=== PATIENT | female | born 1930 | race Caucasian/White ===

== ENCOUNTER → 2017-01-21 | Outpatient (CLI) | payer OTHER, BC ==
[~2017-01-21] MED LIST: ACET-1257 PO; ASPCH81X PO; CALC-20 PO; CHOL100027 PO; PANT40TA PO; SERT-234 PO; SUCR5SUS PO; TPRSR25 PO
[2017-01-21 13:34] LABS: HEMATOCRIT 45.4 % (37-47); MEAN CELL VOLUME 94.2 fL (80-100); MEAN CORPUSCULAR HEMOGLOBIN 30.9 pg (25-34); MEAN CORPUSCULAR HGB CONC 32.8 g/dl (32-36); MEAN PLATELET VOLUME 11.3 fL (7.4-10.4); PLATELET COUNT 165 K/uL (130-400); RED BLOOD COUNT 4.82 M/uL (4.2-5.4); WHITE BLOOD COUNT 8.87 K/uL (4.8-10.8)
[2017-01-21 14:03] LABS: ESTIMATED AVERAGE GLUCOSE 140 mg/dl; HA1C FLAG Normal (Normal)
[2017-01-21 14:08] LABS: ALT/SGPT 26 U/L (12-78); BLOOD UREA NITROGEN 18 mg/dl (7-18); BUN/CREATININE RATIO 14.8 (10-20); CALCIUM 9.2 mg/dl (8.5-10.1); CARBON DIOXIDE 30 mmol/L (21-32); CHLORIDE 105 mmol/L (98-107); GLUCOSE 134 mg/dl (70-99); POTASSIUM 4.3 mmol/L (3.5-5.1); SODIUM 143 mmol/L (136-145)
== END | disposition home or self-care (01) ==
LOC: C.LABMFLN 07:22
PROVIDERS: ATTEND Family Medicine
DX: G45.3 Amaurosis fugax (principal); I10 Essential (primary) hypertension; E11.9 Type 2 diabetes mellitus without complications; E78.00 Pure hypercholesterolemia, unspecified

== ENCOUNTER → 2017-01-22 | Outpatient (CLI) | payer OTHER, BC ==
--- NOTE | 2017-01-22 10:09 | DIAGNOSTIC IMAGING REPORT ---
BILATERAL CAROTID DOPPLER STUDY HISTORY: G45.3 Amaurosis fugax, left [id number] COMPARISON: None. TECHNIQUE: Real-time, grayscale, and color Doppler sonography of the carotid arteries was performed. Imaging reviewed in the transverse and longitudinal planes. All measurements were calculated based on NASCET criteria. FINDINGS: Antegrade flow is seen in the bilateral vertebral arteries. The brachial pressures are hemodynamically similar. Minimal calcified plaque within the right carotid bulb. The peak systolic velocity within the right ICA is 72 cm/s. The right systolic ratio is 1.2. The peak systolic velocity within the left ICA is 87 cm/s. The left systolic ratio is 1.0. IMPRESSION: No hemodynamically significant stenosis seen within the carotid arteries. Electronically signed by: Anil Zhang M.D. 01/22/2017 10:07 AM Dictated Date/Time: 01/22/2017 10:06 AM
== END | disposition home or self-care (01) ==
LOC: C.ULTR 09:13
PROVIDERS: ATTEND Family Medicine
DX: G45.3 Amaurosis fugax (principal)

== ENCOUNTER → 2017-08-19 | Outpatient (CLI) | payer OTHER, BC ==
--- NOTE | 2017-08-19 15:45 | MAMMOGRAPHY REPORT ---
BILATERAL DIGITAL SCREENING MAMMOGRAM WITH CAD: 08/19/2017 CLINICAL HISTORY: Routine screening. Patient has no complaints. TECHNIQUE: Bilateral CC, MLO and XCCL views were obtained. Current study was also evaluated with a [employer] Aided Detection (CAD) system. COMPARISON: Comparison is made to exams dated: 08/17/2016 mammogram, 08/16/2015 mammogram, 05/04/2014 m ammogram, 04/30/2013 mammogram, 04/24/2012 mammogram, and 02/23/2011 mammogram - [facility]. BREAST COMPOSITION: The tissue of both breasts is almost entirely fatty. FINDINGS: There are mild vascular calcifications in the breasts. No suspicious mass, architectural d istortion or cluster of microcalcifications is seen. IMPRESSION: ACR BI-RADS CATEGORY 1: NEGATIVE There is no mammographic evidence of malignancy. A 1 year screening mammogram is recommended. The pa tient will receive written notification of the results. Approximately 10% of breast cancers are not detected with mammography. A negative mammographic report should not delay biopsy if a clinically suggestive mass is present. Leslee Cardenas M.D. ay/:08/19/2017 14:43:22 Bottling Line Attendant: Nikki Briceño, [facility] letter sent: Normal 1/2 BI-RADS Code: ACR BI-RADS Category 1: Negative
== END | disposition home or self-care (01) ==
LOC: C.MAMM 13:18
PROVIDERS: ATTEND Family Medicine
DX: Z12.31 Encounter for screening mammogram for malignant neoplasm of breast (principal)

== ENCOUNTER → 2018-01-27 | Outpatient (CLI) | payer OTHER, BC | END | disposition home or self-care (01) | LOC: C.LABMFLN 09:21 | PROVIDERS: ATTEND Family Medicine | DX: R05 Cough (principal) ==

== ENCOUNTER → 2018-03-12 | Outpatient (CLI) | payer OTHER, BC | END | disposition home or self-care (01) | LOC: C.LABMFLN 11:33 | PROVIDERS: ATTEND Urology | DX: R32 Unspecified urinary incontinence (principal); R35.0 Frequency of micturition ==

== ENCOUNTER 2019-06-30 16:19 | Inpatient (IN) ==
[2019-06-30] MEDS ORDERED: SODIUM CHLORIDE 0.9% 1000ML 1,000 ML IV SCH ×2 (16:30→21:15)
[2019-06-30] MEDS ORDERED: MoRPHine SULFATE 4 MG/ML 1 ML CARP\\VIAL IV STA (16:39)
--- NOTE | 2019-06-30 17:13 | CT Scan Report ---
CT SCAN OF THE BRAIN WITHOUT IV CONTRAST CLINICAL HISTORY: Fall. COMPARISON STUDY: CT of the brain dated 11/14/2015. TECHNIQUE: Unenhanced axial CT scan of the brain is performed from the vertex to the skull base. A do se lowering technique was utilized adhering to the principles of ALARA. CT DOSE: 720.23 mGy.cm FINDINGS: Brain parenchyma: There are age-related involutional changes noting mild to moderate subcortical and periventricular microangiopathic change. There is no hemorrhage, mass effect, or evidence of acute t erritorial ischemia by CT criteria. Garcia-white matter differentiation is preserved. No extra-axial fl uid collection is seen. Ventricles, sulci, cisterns: Prominent secondary to involutional change. Intracranial vasculature: There is atherosclerotic calcification of the cavernous carotid and vertebr al arteries. Calvarium: The skeletal structures are osteopenic. No depressed calvarial fracture is identified. Sinuses and mastoids: There is evidence of previous paranasal sinus surgery. Trace mucosal thickening is noted within the ethmoid cavity. The remaining visualized paranasal sinuses are clear. The mastoi d air cells are well pneumatized. Orbits: The bony orbits are grossly intact. There are bilateral ocular lens implants. IMPRESSION: There is no hemorrhage, mass effect, or evidence of acute territorial ischemia by CT jayden calhoun. Electronically signed by: Washington Moses M.D. 06/30/2019 5:12 PM
[2019-06-30 17:19] LABS: Basophils # (auto) 0.04 K/uL (0-0.2); Basophils % (auto) 0.4 %; Eosinophils # (auto) 0.41 K/uL (0-0.5); Eosinophils % (auto) 4.1 %; Hematocrit (blood only) 41.3 % (37-47); Hemoglobin 13.6 g/dL (12.0-16.0); Immature Granulocytes # (auto) 0.01 K/uL (0.00-0.02); Immature Granulocytes % (auto) 0.1 %; Lymphocytes # (auto) 2.59 K/uL (1.2-3.4); Lymphocytes % (auto) 25.8 %; Mean Corpuscular Hgb Conc 32.9 g/dL (32-36); Mean Corpuscular Volume 92.6 fL (80-100); Mean Platelet Volume 10.8 fL (7.4-10.4); Monocytes # (auto) 0.82 K/uL (0.11-0.59); Monocytes % (auto) 8.2 %; Neutrophils # (auto) 6.16 K/uL (1.4-6.5); Neutrophils % (auto) 61.4 %; Platelet Count 203 K/uL (130-400); RDW Coefficient of Variation 13.8 % (11.5-14.5); RDW Standard Deviation 46.2 fL (36.4-46.3); Red Blood Count 4.46 M/uL (4.2-5.4); White Blood Count 10.03 K/uL (4.8-10.8)
--- NOTE | 2019-06-30 17:25 | XRay Report ---
XR hip BI w PEL1V CLINICAL HISTORY: s/p fall. Pelvis and hip pain. COMPARISON STUDY: Left hip 12/25/2007. FINDINGS: No fracture or dislocation within the pelvis or hips. Mild cartilage space narrowing within the bilateral hips consistent with degenerative change. There is also mild osteoarthritis of the monica ateral sacroiliac joints. The sacrum appears intact. Soft tissues are unremarkable. 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 No fractures. Electronically signed by: Anil Zhang M.D. 06/30/2019 5:24 PM
--- NOTE | 2019-06-30 17:28 | XRay Report ---
XR chest 1V portable HISTORY: weakness COMPARISON: Chest 05/17/2014. FINDINGS: The heart is enlarged. There is interstitial and vascular thickening suggestive of mild con gestive change. No pneumothorax. Blunting of the costophrenic sulci may represent trace pleural effus ions. Old, healed right clavicle fracture. IMPRESSION: Cardiomegaly with mild congestive change. There may be trace bilateral pleural effusions. Electronically signed by: Anil Zhang M.D. 06/30/2019 5:26 PM
[2019-06-30 18:00] LABS: Alanine Aminotransferase 23 U/L (12-78); Albumin Level 3.8 gm/dl (3.4-5.0); Alkaline Phosphatase 100 U/L (45-117); BUN Creatinine Ratio 18.4 (10-20); Blood Urea Nitrogen 22 mg/dl (7-18); Calcium 9.8 mg/dl (8.5-10.1); Carbon Dioxide 29 mmol/L (21-32); Chloride 102 mmol/L (98-107); Est GFR (Non-African American) 41.4; Glucose 123 mg/dl (70-99); Sodium 138 mmol/L (136-145); Total Protein 7.8 gm/dl (6.4-8.2); Troponin I < 0.015 ng/ml (0-0.045)
[2019-06-30] MEDS ORDERED: IOVERSOL 100ml IV PRN (18:41)
--- NOTE | 2019-06-30 19:16 | CT Scan Report ---
CT SCAN OF THE CHEST, ABDOMEN, AND PELVIS WITH IV CONTRAST CLINICAL HISTORY: Recent fall. COMPARISON STUDY: CT scan of the chest, abdomen, and pelvis dated 08/16/2011. Chest x-ray dated 2018. Abdominal CT dated 05/17/2014. TECHNIQUE: Following the IV administration of 94 of Optiray 320, CT scan of the chest, abdomen, and p luis was performed from the thoracic inlet to the proximal femora. Images are reviewed in the axial, sagittal, and coronal planes. IV contrast was administered without complication. A dose lowering t echnique was utilized adhering to the principles of ALARA. CT DOSE: 2043.67 mGy.cm FINDINGS: CHEST: Thyroid: Imaged portions of the thyroid gland are normal in size and attenuation. Thoracic aorta: There is advanced atherosclerotic calcification of the thoracic aorta, which is trevon l in caliber and demonstrates standard 3-vessel arch anatomy. No dissection is seen. Pulmonary vasculature: The pulmonary trunk is dilated measuring 4 cm in diameter. This suggests pulmo nary artery hypertension. There are no filling defects identified in the central pulmonary vessels to indicate pulmonary embolus. Note that this examination was not protocoled for evaluation of the pulm onary arteries. Heart: The heart is enlarged and without pericardial effusion. There are scattered coronary artery ca lcifications. Lungs and pleural spaces: There is no airspace consolidation, pleural effusion, or pneumothorax. Subp leural reticulation is seen throughout both lungs and consistent with chronic lung disease. Scarring/ atelectasis are noted at the lung bases. There is a 6 mm right lower lobe pulmonary nodule seen on im age #161. A 5 mm pleural-based nodules in the right upper lobe on image #69. A 7 mm nodule at the lef t lung base is seen on image #246 and a 4 mm left lower lobe nodule is seen image #[id number]. These are un changed from 2011 and of doubtful significance. Scattered calcified granulomas are observed. Mediastinum: There is no mediastinal hematoma or lymphadenopathy. Yasmine: Clear. Axillae: There is no axillary lymphadenopathy. Bony thorax: The skeletal structures are osteopenic. Degenerative change and kyphoscoliosis are noted throughout the thoracic spine. No lytic or blastic lesions are identified. There is chronic posttrau matic deformity of the right clavicle. There are numerous chronic/healed bilateral rib fractures. The re are acute left posterior 8th and 9th rib fractures. Soft tissues: Soft tissue contusion is noted in the left lower back/upper flank. Small foci of hemorr jose/hematoma measure up to 1.6 cm. ABDOMEN AND PELVIS: Liver: The contrast-enhanced liver is normal in size, contour, and attenuation. There is no intrahepa tic or ductal dilatation. The hepatic veins and portal veins are patent. Gallbladder: There are layering calcified gallstones, with no CT evidence of acute cholecystitis. Spleen: Normal in size and attenuation. Pancreas: Mildly atrophic and grossly unremarkable. Adrenal glands: Unremarkable. Kidneys: The contrast enhanced kidneys demonstrate mild cortical atrophy and are without hydronephros is. The kidneys enhance symmetrically. Abdominal vasculature: The abdominal aorta is normal in course and caliber noting moderate to advance d atherosclerotic calcification. Stomach and bowel: There is a tiny hiatal hernia. The duodenum is normal in configuration. There is m oderate diverticulosis of the left colon without CT evidence of acute diverticulitis. No bowel obstru ction is seen. Mild colonic fecal retention is observed. The appendix is not identified and reported surgically absent. Peritoneum: There is no intraperitoneal free air or abdominal ascites. Lymphadenopathy: None. Pelvic viscera: The bladder is normal as visualized. The uterus is surgically absent. No adnexal lesi on is seen. Skeletal structures: The skeletal structures are osteopenic. There is mild lumbosacral spondylosis an d scoliosis. A small bone island is incidentally noted in the body of L1. No lytic or blastic lesions are seen. The lumbosacral spine and bony pelvis appear intact. Soft tissues: Mild soft tissue contusion overlies the lateral aspect of the left hip. No hematoma is identified. IMPRESSION: 1. There are acute left posterior 8th and 9th rib fractures. 2. There is no airspace consolidation, pleural effusion, or pneumothorax. 3. There is no evidence of solid organ injury in the abdomen or pelvis. 4. There is soft tissue contusion with trace hematoma identified in the left lower back/upper flank. 5. Soft tissue contusion is also seen overlying the lateral aspect of the left hip. 6. Cholelithiasis without CT evidence of acute cholecystitis. 7. There is moderate diverticulosis of the left colon without CT evidence of acute diverticulitis. 8. Mild cardiomegaly. 9. Additional findings as above. Electronically signed by: Washington Moses M.D. 06/30/2019 7:13 PM
--- NOTE | 2019-06-30 20:19 | Emergency Department Note ---
Entered by Kenia Grande acting as a scribe for Harshad Friedman MD History of Present Illness General Chief complaint: Fall Stated complaint: FALL, WEAK, PAIN IN STOMACH/RIB, BLURRED VISION Time Seen by Provider: 06/30/19 16:26 Source: patient, family (daughter) and old records reviewed History of Present Illness Provider complaint: fall Onset (ago): day(s) 6 Location: head Severity: similar to prior episodes Associated symptoms: + chest pain, + headaches, + loss of appetite and + other (+bilateral leg pain) The patient is a 89 year old female w/ PMHx of diabetes, head injury, arrhythmia, and right leg DVT who presents to the ED w/ CC of a fall that occurred 6 days ago. The patient states that she has had multiple recent episodes of falling lately. She reports that her last fall was 6 days ago where she fell into a table and she suffered a head injury. She reports that she was evaluated at [facility] where they did X-rays which were negative, but states that she did not have a CT done. The patient reports that she had a headache f ollowing the fall. She notes that she has a recent loss of appetite. The patient notes that she currently has chest pain and bilateral leg pain. The patient reports that she went to her PCP today and was referred to the ED for physical rehabilitation placement because of her recent falls. She states that she takes blood thinners. The patients daughter notes that the patient states that she does not feel safe living at home alone. Per the ED note, the patient is on Aspirin and Plavix. Home Medications Home Medications Medication Instructions Recorded Confirmed Type albuterol sulfate 2.5 mg/3 mL 2.5 mg CONTINUOUS NEBULIZATION BID 04/22/19 06/30/19 History (0.083 %) solution for nebulization #1 ml aspirin 81 mg tablet,delayed 81 mg PO DAILY #2 tab 04/22/19 06/30/19 History release atorvastatin 20 mg tablet 20 mg PO DAILY #90 tab 04/22/19 06/30/19 History cholecalciferol (vitamin D3) 2,000 4,000 units PO DAILY #180 cap 04/22/19 06/30/19 History unit capsule clopidogrel 75 mg tablet 75 mg PO DAILY #90 tab 04/22/19 06/30/19 History doxycycline monohydrate 100 mg 100 mg PO DAILY #30 cap 04/22/19 06/30/19 History capsule lisinopril 5 mg tablet 5 mg PO DAILY #90 tab 04/22/19 06/30/19 History sertraline 100 mg tablet 100 mg PO DAILY #90 tab 04/22/19 06/30/19 History pantoprazole 40 mg tablet,delayed 40 mg PO DAILY #90 tab 04/27/19 06/30/19 Rx release cetirizine 10 mg capsule 10 mg PO HS #30 cap 05/18/19 06/30/19 Rx fluticasone propionate 50 2 sprays INTRANASAL .at bedtime #3 05/18/19 06/30/19 Rx mcg/actuation nasal gm spray,suspension mirabegron ER 50 mg 50 mg PO DAILY 05/18/19 06/30/19 History tablet,extended release 24 hr folic acid 1 mg tablet 1 mg PO DAILY #90 tab 05/25/19 06/30/19 Rx calcium carbonate 600 mg (1,500 1 tab PO BID #180 tab 06/04/19 06/30/19 Rx mg)-vitamin D3 400 unit tablet duloxetine 30 mg capsule,delayed 30 mg PO DAILY #90 cap 06/15/19 06/30/19 Rx release acetaminophen 325 mg tablet See Rx Instructions .ROUTE 06/24/19 06/30/19 Rx .COMPLEX #60 tablet calcitonin (salmon) 200 See Rx Instructions .ROUTE 06/30/19 06/30/19 Rx unit/actuation nasal spray .COMPLEX #3.7 ml hydrocodone 7.5 mg-acetaminophen 1 tab PO Q6H #60 tab 06/30/19 06/30/19 Rx 325 mg tablet ondansetron HCl 4 mg tablet 4 mg PO QID PRN #30 tab 06/30/19 06/30/19 Rx Allergies Allergy/AdvReac Type Severity Reaction Status Date / Time Nitrate Analogues Allergy Unknown UNKNOWN Verified 06/30/19 14:34 nitrofurantoin Allergy Unknown UNKNOWN Verified 06/30/19 14:34 ciprofloxacin [From Cipro] AdvReac Verified 06/30/19 14:34 metformin AdvReac Diarrhea Verified 06/30/19 14:34 Past Med/Surg History Medical History Thyroid nodule (Chronic) Diabetes (Chronic) Arrhythmia (Chronic) Surgical History History of total abdominal hysterectomy Status post abdominal hysterectomy and right salpingo-oophorectomy Family History Mother Brain cancer Father Esophageal cancer Other Hypertension Pure hypercholesterolemia Social History Feels Safe at Home: Yes Smoking Status: Never smoker Seatbelt Use: always Review of Systems See HPI for pertinent positives & negatives. and A total of 10 systems reviewed and were otherwise negative Physical Exam Vital Signs Vital Signs - 24 hr 06/30/19 16:20 06/30/19 16:38 06/30/19 17:09 Temperature 36.5 C Temperature Source Oral Sepsis Recent Fever Within 48 Hours No Sepsis Action Taken by Nursing No Action Required Pulse Rate 83 Pulse Rate [Finger] 96 H Pulse Rate from SpO2 Sensor Respiratory Rate 18 20 Respiratory Effort / Characteristics Non-Labored Respiratory Depth Normal Blood Pressure 141/85 H Blood Pressure [Left Arm] Blood Pressure Mean 103 Blood Pressure Mean [Left Arm] Pulse Oximetry 94 93 Oxygen Delivery Method Room Air Room Air Room Air 06/30/19 17:10 06/30/19 17:12 06/30/19 17:20 Temperature Temperature Source Sepsis Recent Fever Within 48 Hours Sepsis Action Taken by Nursing Pulse Rate 83 91 H 90 Pulse Rate [Finger] Pulse Rate from SpO2 Sensor 90 94 H 89 Respiratory Rate 15 25 H 18 Respiratory Effort / Characteristics Respiratory Depth Blood Pressure Blood Pressure [Left Arm] Blood Pressure Mean 157 Blood Pressure Mean [Left Arm] Pulse Oximetry 93 93 Oxygen Delivery Method Room Air Room Air Room Air 06/30/19 17:30 06/30/19 17:40 06/30/19 17:47 Temperature Temperature Source Sepsis Recent Fever Within 48 Hours Sepsis Action Taken by Nursing Pulse Rate 92 H 90 Pulse Rate [Finger] 88 Pulse Rate from SpO2 Sensor 92 H 89 Respiratory Rate 22 22 19 Respiratory Effort / Characteristics Respiratory Depth Blood Pressure Blood Pressure [Left Arm] 133/57 L Blood Pressure Mean Blood Pressure Mean [Left Arm] 82 Pulse Oximetry 92 92 Oxygen Delivery Method Room Air Room Air Room Air 06/30/19 17:48 06/30/19 17:50 06/30/19 18:00 Temperature Temperature Source Sepsis Recent Fever Within 48 Hours Sepsis Action Taken by Nursing Pulse Rate 89 89 95 H Pulse Rate [Finger] Pulse Rate from SpO2 Sensor 89 91 H 92 H Respiratory Rate 21 24 21 Respiratory Effort / Characteristics Respiratory Depth Blood Pressure 133/57 L 129/89 Blood Pressure [Left Arm] Blood Pressure Mean 82 102 Blood Pressure Mean [Left Arm] Pulse Oximetry 93 90 90 Oxygen Delivery Method Room Air Room Air Room Air 06/30/19 18:10 06/30/19 18:20 06/30/19 18:30 Temperature Temperature Source Sepsis Recent Fever Within 48 Hours Sepsis Action Taken by Nursing Pulse Rate 100 H 95 H 93 H Pulse Rate [Finger] Pulse Rate from SpO2 Sensor 98 H 95 H 94 H Respiratory Rate 25 H 22 23 Respiratory Effort / Characteristics Respiratory Depth Blood Pressure 144/75 H Blood Pressure [Left Arm] Blood Pressure Mean 98 Blood Pressure Mean [Left Arm] Pulse Oximetry 90 91 90 Oxygen Delivery Method Room Air Room Air Room Air 06/30/19 19:35 Temperature Temperature Source Sepsis Recent Fever Within 48 Hours Sepsis Action Taken by Nursing Pulse Rate Pulse Rate [Finger] 97 H Pulse Rate from SpO2 Sensor Respiratory Rate 12 Respiratory Effort / Characteristics Respiratory Depth Blood Pressure Blood Pressure [Left Arm] Blood Pressure Mean Blood Pressure Mean [Left Arm] Pulse Oximetry Oxygen Delivery Method Room Air GENERAL: Well appearing, wearing glasses, well nourished, NAD, non-toxic. EYE EXAM: Normal conjunctiva. PERRL, no anisocoria and EOM's grossly intact w/o pain. OROPHARYNX: Moist mucous membranes. Grossly normal dentition. NECK: Supple, no nuchal rigidity, no adenopathy, non-tender. No signs of menin gismus. LUNGS: Clear to auscultation. Normal chest wall mechanics. HEART: NSR, no MRG. ABDOMEN: Abdomen soft, non-tender, normo-active bowel sounds, no masses, no rebound or guarding. BACK: No CVA. Large left sided area of ecchymosis. Associated TTP 12 cm by 12 cm across. SKIN: No rashes and no bruising. UPPER EXTREMITIES: Mild discomfort over left elbow, compartments soft, NVI distally, no obvious deformities. LOWER EXTREMITIES: No pitting edema. No calf pain. Symmetric. No obvious deformities. NEURO EXAM: A&O x3, cranial nerves II-XII grossly intact, normal speech, moves all 4 extremities on command w/o issue. Course 1635: The patient was evaluated in room A10, and a complete history and physical examination were performed. 1934: I discussed the patient's case with Dr. Hazel Knight- [facility] Hospitalist, she will accept the patient for further evaluation. Consultations Consultation #1: Dr. Hazel Knight- [facility] Hospitalist Time: 19:34 Administered Medications Ioversol (Optiray 320 100ml) 94 ml IV ONCE PRN PRN Reason: Interaction Checking Stop: 07/04/19 18:40 Last Admin: 06/30/19 18:42 Dose: 94 ml Documented by: [id number] Discontinued Medications Sodium Chloride (Nss 1000ml) 1,000 mls @ 999 mls/hr IV .Q1H1M JEF Stop: 06/30/19 17:30 Last Infusion: 06/30/19 18:26 Dose: 0 mls/hr Documented by: [id number] Admin: 06/30/19 17:07 Dose: 999 mls/hr Documented by: [id number] Morphine Sulfate (Morphine Sulfate) 4 mg IV NOW STA Stop: 06/30/19 16:40 Last Admin: 06/30/19 17:07 Dose: 4 mg Documented by: [id number] Medical Decision Making Medical Records Attestation: I reviewed the patient's medical records. Home Medications Current Medication List: was personally reviewed by me Laboratory Data Attestation: I reviewed the patient's lab results. Result diagrams: 06/30/19 16:28 06/30/19 16:28 Lab Results 06/30/19 06/30/19 Range/Units 16:28 16:28 WBC 10.03 (4.8-10.8) K/uL RBC 4.46 (4.2-5.4) M/uL Hgb 13.6 (12.0-16.0) g/dL Hct 41.3 (37-47) % MCV 92.6 (80-100) fL MCH 30.5 (25-34) pg MCHC 32.9 (32-36) g/dL RDW Std Deviation 46.2 (36.4-46.3) fL RDW Coeff of Lauren 13.8 (11.5-14.5) % Plt Count 203 (130-400) K/uL MPV 10.8 H (7.4-10.4) fL Immature Gran % (Auto) 0.1 % Neut % (Auto) 61.4 % Lymph % (Auto) 25.8 % [place] % (Auto) 8.2 % Eos % (Auto) 4.1 % Baso % (Auto) 0.4 % Immature Gran # (Auto) 0.01 (0.00-0.02) K/uL Neut # (Auto) 6.16 (1.4-6.5) K/uL Lymph # (Auto) 2.59 (1.2-3.4) K/uL Newport # (Auto) 0.82 H (0.11-0.59) K/uL Eos # (Auto) 0.41 (0-0.5) K/uL Baso # (Auto) 0.04 (0-0.2) K/uL Sodium 138 (136-145) mmol/L Potassium (3.5-5.1) mmol/L Chloride 102 (98-107) mmol/L Carbon Dioxide 29 (21-32) mmol/L Anion Gap 7.0 (3-11) BUN 22 H (7-18) mg/dl Creatinine 1.18 (0.6-1.2) mg/dl Est Cr Clr Drug Dosing Not Reportable Est GFR ( Amer) 48.0 Est GFR (Non-Af Amer) 41.4 BUN/Creatinine Ratio 18.4 (10-20) Glucose 123 H (70-99) mg/dl Calcium 9.8 (8.5-10.1) mg/dl Magnesium (1.8-2.4) mg/dl Total Bilirubin 1.0 (0.2-1) mg/dl AST (15-37) U/L ALT 23 (12-78) U/L Alkaline Phosphatase 100 (45-117) U/L Troponin I < 0.015 (0-0.045) ng/ml Total Protein 7.8 (6.4-8.2) gm/dl Albumin 3.8 (3.4-5.0) gm/dl Globulin 4.0 (2.5-4.0) gm/dl Albumin/Globulin Ratio 1.0 (0.9-2) TSH 3.090 (0.300-4.500) uIu/ml Imaging Data Radiologist's Impression: Radiology results as stated below per my review and the radiologist's interpretation: CT SCAN OF THE BRAIN WITHOUT IV CONTRAST CLINICAL HISTORY: Fall. COMPARISON STUDY: CT of the brain dated 11/14/2015. TECHNIQUE: Unenhanced axial CT scan of the brain is performed from the vertex to the skull base. A dose lowering technique was utilized adhering to the principles of ALARA. CT DOSE: 720.23 mGy.cm FINDINGS: Brain parenchyma: There are age-related involutional changes noting mild to moderate subcortical and periventricular microangiopathic change. There is no hemorrhage, mass effect, or evidence of acute territorial ischemia by CT criteria. Garcia-white matter differentiation is preserved. No extra-axial fluid collection is seen. Ventricles, sulci, cisterns: Prominent secondary to involutional change. Intracranial vasculature: There is atherosclerotic calcification of the cavernous carotid and vertebral arteries. Calvarium: The skeletal structures are osteopenic. No depressed calvarial fracture is identified. Sinuses and mastoids: There is evidence of previous paranasal sinus surgery. Trace mucosal thickening is noted within the ethmoid cavity. The remaining visualized paranasal sinuses are clear. The mastoid air cells are well pneumatized. Orbits: The bony orbits are grossly intact. There are bilateral ocular lens implants. IMPRESSION: There is no hemorrhage, mass effect, or evidence of acute territor ial ischemia by CT criteria. Electronically signed by: Washington Moses M.D. 06/30/2019 5:[address] SCAN OF THE CHEST, ABDOMEN, AND PELVIS WITH IV CONTRAST CLINICAL HISTORY: Recent fall. COMPARISON STUDY: CT scan of the chest, abdomen, and pelvis dated 08/16/2011. Chest x-ray dated 06/30/2019. Abdominal CT dated 05/17/2014. TECHNIQUE: Following the IV administration of 94 of Optiray 320, CT scan of the chest, abdomen, and pelvis was performed from the thoracic inlet to the proximal femora. Images are reviewed in the axial, sagittal, and coronal planes. IV contrast was administered without complication. A dose lowering technique was utilized adhering to the principles of ALARA. CT DOSE: 2043.67 mGy.cm FINDINGS: CHEST: Thyroid: Imaged portions of the thyroid gland are normal in size and attenuation. Thoracic aorta: There is advanced atherosclerotic calcification of the thoracic aorta, which is normal in caliber and demonstrates standard 3-vessel arch shantel elizabeth. No dissection is seen. Pulmonary vasculature: The pulmonary trunk is dilated measuring 4 cm in diameter. This suggests pulmonary artery hypertension. There are no filling defects identified in the central pulmonary vessels to indicate pulmonary embolus. Note that this examination was not protocoled for evaluation of the pulmonary arteries. Heart: The heart is enlarged and without pericardial effusion. There are scattered coronary artery calcifications. Lungs and pleural spaces: There is no airspace consolidation, pleural effusion, or pneumothorax. Subpleural reticulation is seen throughout both lungs and consistent with chronic lung disease. Scarring/atelectasis are noted at the lung bases. There is a 6 mm right lower lobe pulmonary nodule seen on image #161. A 5 mm pleural-based nodules in the right upper lobe on image #69. A 7 mm nodule at the left lung base is seen on image #246 and a 4 mm left lower lobe nodule is seen image #2121. These are unchanged from 2011 and of doubtful significance. Scattered calcified granulomas are observed. Mediastinum: There is no mediastinal hematoma or lymphadenopathy. Yasmine: Clear. Axillae: There is no axillary lymphadenopathy. Bony thorax: The skeletal structures are osteopenic. Degenerative change and kyphoscoliosis are noted throughout the thoracic spine. No lytic or blastic lesions are identified. There is chronic posttraumatic deformity of the right clavicle. There are numerous chronic/healed bilateral rib fractures. There are acute left posterior 8th and 9th rib fractures. Soft tissues: Soft tissue contusion is noted in the left lower back/upper flank. Small foci of hemorrhage/hematoma measure up to 1.6 cm. ABDOMEN AND PELVIS: Liver: The contrast-enhanced liver is normal in size, contour, and attenuation. There is no intrahepatic or ductal dilatation. The hepatic veins and portal veins are patent. Gallbladder: There are layering calcified gallstones, with no CT evidence of acute cholecystitis. Spleen: Normal in size and attenuation. Pancreas: Mildly atrophic and grossly unremarkable. Adrenal glands: Unremarkable. Kidneys: The contrast enhanced kidneys demonstrate mild cortical atrophy and are without hydronephrosis. The kidneys enhance symmetrically. Abdominal vasculature: The abdominal aorta is normal in course and caliber noting moderate to advanced atherosclerotic calcification. Stomach and bowel: There is a tiny hiatal hernia. The duodenum is normal in configuration. There is moderate diverticulosis of the left colon without CT evidence of acute diverticulitis. No bowel obstruction is seen. Mild colonic fecal retention is observed. The appendix is not identified and reported surgically absent. Peritoneum: There is no intraperitoneal free air or abdominal ascites. Lymphadenopathy: None. Pelvic viscera: The bladder is normal as visualized. The uterus is surgically absent. No adnexal lesion is seen. Skeletal structures: The skeletal structures are osteopenic. There is mild lumb osacral spondylosis and scoliosis. A small bone island is incidentally noted in the body of L1. No lytic or blastic lesions are seen. The lumbosacral spine and bony pelvis appear intact. Soft tissues: Mild soft tissue contusion overlies the lateral aspect of the left hip. No hematoma is identified. IMPRESSION: 1. There are acute left posterior 8th and 9th rib fractures. 2. There is no airspace consolidation, pleural effusion, or pneumothorax. 3. There is no evidence of solid organ injury in the abdomen or pelvis. 4. There is soft tissue contusion with trace hematoma identified in the left lower back/upper flank. 5. Soft tissue contusion is also seen overlying the lateral aspect of the left hip. 6. Cholelithiasis without CT evidence of acute cholecystitis. 7. There is moderate diverticulosis of the left colon without CT evidence of acute diverticulitis. 8. Mild cardiomegaly. 9. Additional findings as above. Electronically signed by: Washington Moses M.D. 06/30/2019 7:[address] SCAN OF THE CHEST, ABDOMEN, AND PELVIS WITH IV CONTRAST CLINICAL HISTORY: Recent fall. COMPARISON STUDY: CT scan of the chest, abdomen, and pelvis dated 08/16/2011. Chest x-ray dated 06/30/2019. Abdominal CT dated 05/17/2014. TECHNIQUE: Following the IV administration of 94 of Optiray 320, CT scan of the chest, abdomen, and pelvis was performed from the thoracic inlet to the proximal femora. Images are reviewed in the axial, sagittal, and coronal planes. IV contrast was administered without complication. A dose lowering technique was utilized adhering to the principles of ALARA. CT DOSE: 2043.67 mGy.cm FINDINGS: CHEST: Thyroid: Imaged portions of the thyroid gland are normal in size and attenuation. Thoracic aorta: There is advanced atherosclerotic calcification of the thoracic aorta, which is normal in caliber and demonstrates standard 3-vessel arch a natomy. No dissection is seen. Pulmonary vasculature: The pulmonary trunk is dilated measuring 4 cm in diameter. This suggests pulmonary artery hypertension. There are no filling defects identified in the central pulmonary vessels to indicate pulmonary embolus. Note that this examination was not protocoled for evaluation of the pulmonary arteries. Heart: The heart is enlarged and without pericardial effusion. There are scattered coronary artery calcifications. Lungs and pleural spaces: There is no airspace consolidation, pleural effusion, or pneumothorax. Subpleural reticulation is seen throughout both lungs and consistent with chronic lung disease. Scarring/atelectasis are noted at the lung bases. There is a 6 mm right lower lobe pulmonary nodule seen on image #161. A 5 mm pleural-based nodules in the right upper lobe on image #69. A 7 mm nodule at the left lung base is seen on image #246 and a 4 mm left lower lobe nodule is seen image #2121. These are unchanged from 2011 and of doubtful significance. Scattered calcified granulomas are observed. Mediastinum: There is no mediastinal hematoma or lymphadenopathy. Yasmine: Clear. Axillae: There is no axillary lymphadenopathy. Bony thorax: The skeletal structures are osteopenic. Degenerative change and kyphoscoliosis are noted throughout the thoracic spine. No lytic or blastic lesions are identified. There is chronic posttraumatic deformity of the right clavicle. There are numerous chronic/healed bilateral rib fractures. There are acute left posterior 8th and 9th rib fractures. Soft tissues: Soft tissue contusion is noted in the left lower back/upper flank. Small foci of hemorrhage/hematoma measure up to 1.6 cm. ABDOMEN AND PELVIS: Liver: The contrast-enhanced liver is normal in size, contour, and attenuation. There is no intrahepatic or ductal dilatation. The hepatic veins and portal veins are patent. Gallbladder: There are layering calcified gallstones, with no CT evidence of acute cholecystitis. Spleen: Normal in size and attenuation. Pancreas: Mildly atrophic and grossly unremarkable. Adrenal glands: Unremarkable. Kidneys: The contrast enhanced kidneys demonstrate mild cortical atrophy and are without hydronephrosis. The kidneys enhance symmetrically. Abdominal vasculature: The abdominal aorta is normal in course and caliber noting moderate to advanced atherosclerotic calcification. Stomach and bowel: There is a tiny hiatal hernia. The duodenum is normal in configuration. There is moderate diverticulosis of the left colon without CT evidence of acute diverticulitis. No bowel obstruction is seen. Mild colonic fecal retention is observed. The appendix is not identified and reported surgic ally absent. Peritoneum: There is no intraperitoneal free air or abdominal ascites. Lymphadenopathy: None. Pelvic viscera: The bladder is normal as visualized. The uterus is surgically absent. No adnexal lesion is seen. Skeletal structures: The skeletal structures are osteopenic. There is mild l umbosacral spondylosis and scoliosis. A small bone island is incidentally noted in the body of L1. No lytic or blastic lesions are seen. The lumbosacral spine and bony pelvis appear intact. Soft tissues: Mild soft tissue contusion overlies the lateral aspect of the left hip. No hematoma is identified. IMPRESSION: 1. There are acute left posterior 8th and 9th rib fractures. 2. There is no airspace consolidation, pleural effusion, or pneumothorax. 3. There is no evidence of solid organ injury in the abdomen or pelvis. 4. There is soft tissue contusion with trace hematoma identified in the left lower back/upper flank. 5. Soft tissue contusion is also seen overlying the lateral aspect of the left hip. 6. Cholelithiasis without CT evidence of acute cholecystitis. 7. There is moderate diverticulosis of the left colon without CT evidence of acute diverticulitis. 8. Mild cardiomegaly. 9. Additional findings as above. Electronically signed by: Washington Moses M.D. 06/30/2019 7:13 PM XR chest 1V portable HISTORY: weakness COMPARISON: Chest 05/17/2014. FINDINGS: The heart is enlarged. There is interstitial and vascular thickening suggestive of mild congestive change. No pneumothorax. Blunting of the costophrenic sulci may represent trace pleural effusions. Old, healed right clavicle fracture. IMPRESSION: Cardiomegaly with mild congestive change. There may be trace bilateral pleural effusions. Electronically signed by: Anil Zhang M.D. 06/30/2019 5:26 PM XR hip BI w [id number] CLINICAL HISTORY: s/p fall. Pelvis and hip pain. COMPARISON STUDY: Left hip 12/25/2007. FINDINGS: No fracture or dislocation within the pelvis or hips. Mild cartilage space narrowing within the bilateral hips consistent with degenerative change. There is also mild osteoarthritis of the bilateral sacroiliac joints. The sacrum appears intact. Soft tissues are unremarkable. 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 No fractures. Electronically signed by: Anil Zhang M.D. 06/30/2019 5:24 PM ECG Data Attestation: I personally reviewed and interpreted this ECG as follows: Indication: other (fall) Rate (beats per minute): 89 Rhythm: sinus rhythm Findings: + other (normal interval and axis); no ST depression, no T-wave inversion and no ST elevation Comparison ECG Date: no prior available Blood Pressure Blood Pressure Findings: Low blood pressure Blood Pressure Disposition: further management by hospitalist MDM Narrative The patient is a 89 year old female w/ PMHx of diabetes, head injury, arrhythmia, and right leg DVT who presents to the ED w/ CC of a fall that occurred 6 days ago. Differential diagnosis: Etiologies such as fracture, dislocation, intra- abdominal, pneumothorax, intrathoracic , intracranial, neurologic, as well as other traumatic pathologies were entertained. Patient does present from personal alf. The patient has had recurrent falls and has been referred here by her primary care for possible rehabilitation placement. Patient will need an inpatient stay. The patient did have a recent fall but after further review I do not have any recent imaging studies as the pa dianne states that she was told that she had some rib fractures. This may have just been what has been stated by the primary care physician's office. The patient does have a significant area of ecchymosis over the left flank. The patient is on aspirin and Plavix. The patient does have stable vitals. Patient did have blood work completed along with CT of the head chest abdomen and pelvis. CT the head is negative. The patient's plain films are unremarkable. The patient's CTs showed the patient does have 2 left-sided posterior rib fractures. No evidence of hemothorax or pneumothorax. There is no bleeding within the abdomen. Inform the patient the findings. I did speak the on-call hospitalist agreed to further evaluate treat the patient. Incentive spirometry and Lidoderm patches were ordered. Patient was admitted to the medicine service. Impression & Plan Falls, Fracture of rib, Acute left flank pain, Traumatic ecchymosis of flank Discharge Plan Visit Data Chief Complaint: Fall Stated Complaint: FALL, WEAK, PAIN IN STOMACH/RIB, BLURRED VISION ED Provider: Harshad Friedman Discharge Problem: Falls, Fracture of rib, Acute left flank pain, Traumatic ecchymosis of flank Patient Disposition: Being Evaluated by Hospitalist Forms Stand Alone Forms: My imoji Prescriptions Prescriptions: No Action pantoprazole 40 mg tablet,delayed release (DR/EC) 40 mg PO DAILY Qty: 90 RF: 3 folic acid 1 mg tablet 1 mg PO DAILY Qty: 90 RF: 3 calcium carbonate-vitamin D3 [Calcium 600 + D(3)] 600 mg(1,500mg) -400 unit tablet 1 tab PO BID Qty: 180 RF: 3 duloxetine 30 mg capsule,delayed release(DR/EC) 30 mg PO DAILY Qty: 90 RF: 3 acetaminophen 325 mg tablet See Rx Instructions .ROUTE .COMPLEX Qty: 60 RF: 10 albuterol sulfate 2.5 mg /3 mL (0.083 %) solution for nebulization 2.5 mg continuous nebulization BID Qty: 1 RF: 0 atorvastatin 20 mg tablet 20 mg PO DAILY Qty: 90 RF: 0 clopidogrel 75 mg tablet 75 mg PO DAILY Qty: 90 RF: 0 doxycycline monohydrate 100 mg capsule 100 mg PO DAILY Qty: 30 RF: 0 aspirin 81 mg tablet,delayed release (DR/EC) 81 mg PO DAILY Qty: 2 RF: 0 lisinopril 5 mg tablet 5 mg PO DAILY Qty: 90 RF: 0 sertraline 100 mg tablet 100 mg PO DAILY Qty: 90 RF: 0 cholecalciferol (vitamin D3) 2,000 unit capsule 4,000 units PO DAILY Qty: 180 RF: 0 Myrbetriq 50 mg tablet extended release 24 hr 50 mg PO DAILY RF: 0 fluticasone propionate 50 mcg/actuation spray,suspension 2 sprays intranasal .at bedtime Qty: 3 RF: 0 All Day Allergy (cetirizine) 10 mg capsule 10 mg PO HS Qty: 30 RF: 5 calcitonin (salmon) 200 unit/actuation spray,non-aerosol See Rx Instructions .ROUTE .COMPLEX Qty: 3.7 RF: 1 ondansetron HCl [Zofran] 4 mg tablet 4 mg PO QID PRN (Reason: nausea and vomiting) Qty: 30 RF: 1 hydrocodone-acetaminophen 7.5-325 mg tablet 1 tab PO Q6H Qty: 60 RF: 0 Referrals Referrals: Slick Reinoso MD [Primary Care Provider] - Discharge Problem: Falls Qualifiers: Encounter type: initial encounter Qualified Code(s): W19.XXXA - Unspecified fall, initial encounter Fracture of rib Qualifiers: Encounter type: initial encounter Rib fracture type: multiple ribs Fracture type: closed Laterality: left Qualified Code(s): S22.42XA - Multiple fractures of ribs, left side, initial encounter for closed fracture Traumatic ecchymosis of flank Qualifiers: Encounter type: initial encounter Qualified Code(s): S30.1XXA - Contusion of abdominal wall, initial encounter The scribe's documentation has been prepared under my direction and personally reviewed by me in its entirety. I confirm that the note above accurately reflects all work, treatment, procedures, and medical decision making performed by me.
--- NOTE | 2019-06-30 20:32 | History & Physical Report ---
Date of Service June 30, 2019 Assessment & Plan (1) Falls: Patient with frequent mechanical falls in the home. Desire for rehabilitation placement. Per history, falls sound to be mechanical - no syncope, no LOC. -Admit to medical floor -PT/OT evaluation for possible rehab placement -Fall precautions Present on Admission?: Yes (2) Fracture of rib: Patient struck her left flank/back in her most recent fall 6 days ago resulting in acute left posterior 8th and 9th rib fractures -Pain control with scheduled Tylenol -Lidoderm patch -Heating pad -Incentive spirometry -Patient wishes to avoid narcotic use due to a family history of addiction. If needed will add Toradol Present on Admission?: Yes (3) Traumatic ecchymosis of flank: Patient with large bruised area on left flank/back -Hold ASA and Plavix -Measure area -CBC prior to DC Present on Admission?: Yes (4) Diabetes: Blood sugar well controlled with diet -fingersticks and ISS, goal 100 - 180 -CC diet as tolerated History of Present Illness Chief Complaint: s/p fall Primary Care Provider: Slick Reinoso MD Lindsey Garcia is an 89yo C female with history of DM, hypothyroidism presenting after a fall at home. Patient reports that her falls began in 2010 when she fell down the basement stairs in her home. This fall resulted in a RUE fracture and an extended stay in a rehabilitation facility. Since 2010 she continues to fall on a fairly regular basis. Her most recent fall was6 days ago in her home. She reports that she was standing in her living room getting ready for her Saturday night spa bath. She was leaning on her walker and reached for something on a table and lost her balance. She fell and hit the leg of a table with her left flank. She denies loss of consciousness or head trauma. Denies CP/palpitations/numbness/weakness. Patient presently resides at [facility]. She is living independently in an apartment. Her is also at [facility] and was recently moved to the Memory unit. She wishes to be transferred to the [facility] after her hospital stay. ER Course: Lidocaine patch, Morphine 4mg IV Allergies Allergy/AdvReac Type Severity Reaction Status Date / Time Nitrate Analogues Allergy Unknown UNKNOWN Verified 06/30/19 14:34 nitrofurantoin Allergy Unknown UNKNOWN Verified 06/30/19 14:34 ciprofloxacin [From Cipro] AdvReac Verified 06/30/19 14:34 metformin AdvReac Diarrhea Verified 06/30/19 14:34 Home Medications Home Medications Medication Instructions Recorded Confirmed Type albuterol sulfate 2.5 mg/3 mL 2.5 mg CONTINUOUS NEBULIZATION BID 04/22/19 06/30/19 History (0.083 %) solution for nebulization #1 ml aspirin 81 mg tablet,delayed 81 mg PO DAILY #2 tab 04/22/19 06/30/19 History release atorvastatin 20 mg tablet 20 mg PO DAILY #90 tab 04/22/19 06/30/19 History cholecalciferol (vitamin D3) 2,000 4,000 units PO DAILY #180 cap 04/22/19 06/30/19 History unit capsule clopidogrel 75 mg tablet 75 mg PO DAILY #90 tab 04/22/19 06/30/19 History doxycycline monohydrate 100 mg 100 mg PO DAILY #30 cap 04/22/19 06/30/19 History capsule lisinopril 5 mg tablet 5 mg PO DAILY #90 tab 04/22/19 06/30/19 History sertraline 100 mg tablet 100 mg PO DAILY #90 tab 04/22/19 06/30/19 History pantoprazole 40 mg tablet,delayed 40 mg PO DAILY #90 tab 04/27/19 06/30/19 Rx release cetirizine 10 mg capsule 10 mg PO HS #30 cap 05/18/19 06/30/19 Rx fluticasone propionate 50 2 sprays INTRANASAL .at bedtime #3 05/18/19 06/30/19 Rx mcg/actuation nasal gm spray,suspension mirabegron ER 50 mg 50 mg PO DAILY 05/18/19 06/30/19 History tablet,extended release 24 hr folic acid 1 mg tablet 1 mg PO DAILY #90 tab 05/25/19 06/30/19 Rx calcium carbonate 600 mg (1,500 1 tab PO BID #180 tab 06/04/19 06/30/19 Rx mg)-vitamin D3 400 unit tablet duloxetine 30 mg capsule,delayed 30 mg PO DAILY #90 cap 06/15/19 06/30/19 Rx release acetaminophen 325 mg tablet See Rx Instructions .ROUTE 06/24/19 06/30/19 Rx .COMPLEX #60 tablet calcitonin (salmon) 200 See Rx Instructions .ROUTE 06/30/19 06/30/19 Rx unit/actuation nasal spray .COMPLEX #3.7 ml hydrocodone 7.5 mg-acetaminophen 1 tab PO Q6H #60 tab 06/30/19 06/30/19 Rx 325 mg tablet ondansetron HCl 4 mg tablet 4 mg PO QID PRN #30 tab 06/30/19 06/30/19 Rx Past Med/Surg History Medical History Thyroid nodule (Chronic) Diabetes (Chronic) Arrhythmia (Chronic) Surgical History History of total abdominal hysterectomy Status post abdominal hysterectomy and right salpingo-oophorectomy Family History Mother Brain cancer Father Esophageal cancer Other Hypertension Pure hypercholesterolemia Social History Feels Safe at Home: Yes Smoking Status: Never smoker Hx Alcohol Use: No Hx Substance Use: No Seatbelt Use: always Review of Systems Review of Systems: All systems reviewed & are unremarkable except as noted in HPI & below Physical Exam Physical Exam: General: patient resting comfortably, NAD, non-toxic in appearance, AA&O x 4 Skin: warm, dry, intact, large ecchymotic area on left flank, back and anterior thigh, mildly tender to palpation HEENT: NC/AT, PERRL, EOMI, anicteric sclera, conjunctiva without injection, external ear normal to inspection and nontender, nares patent, moist mucus membranes, dentition intact, no oropharyngeal lesions, neck supple, trachea midline, no LAD, no thyromegaly, no JVD Heart: +S1/S2, regular, no m/r/g Lungs: equal air entry bilaterally, no rales/rhonchi/wheezes Abd: +BS, soft, NT/ND, no masses/organomegaly/ascites Ext: warm, 2+ pulses in UE/LE bilaterally, no clubbing/cyanosis or edema Neuro: nonfocal, patient AA&O x 4, speech intact, no facial droop, moving all extremities on command with equal strength 5/5 Results & Data Vital Signs (Past 12 Hours) Vital Signs Temp Pulse Pulse Resp BP BP Pulse Ox 06/30/19 19:35 97 H 12 06/30/19 18:30 93 H 23 144/75 H 90 06/30/19 18:20 95 H 22 91 06/30/19 18:10 100 H 25 H 90 06/30/19 18:00 95 H 21 129/89 90 06/30/19 17:50 89 24 90 06/30/19 17:48 89 21 133/57 L 93 06/30/19 17:47 88 19 133/57 L 06/30/19 17:40 90 22 92 06/30/19 17:30 92 H 22 92 06/30/19 17:20 90 18 93 06/30/19 17:12 91 H 25 H 93 06/30/19 17:10 83 15 06/30/19 17:09 96 H 20 93 06/30/19 16:20 36.5 C 83 18 141/85 H 94 Laboratory Results Lab Results 06/30/19 06/30/19 Range/Units 16:28 16:28 WBC 10.03 (4.8-10.8) K/uL RBC 4.46 (4.2-5.4) M/uL Hgb 13.6 (12.0-16.0) g/dL Hct 41.3 (37-47) % MCV 92.6 (80-100) fL MCH 30.5 (25-34) pg MCHC 32.9 (32-36) g/dL RDW Std Deviation 46.2 (36.4-46.3) fL RDW Coeff of Lauren 13.8 (11.5-14.5) % Plt Count 203 (130-400) K/uL MPV 10.8 H (7.4-10.4) fL Immature Gran % (Auto) 0.1 % Neut % (Auto) 61.4 % Lymph % (Auto) 25.8 % [place] % (Auto) 8.2 % Eos % (Auto) 4.1 % Baso % (Auto) 0.4 % Immature Gran # (Auto) 0.01 (0.00-0.02) K/uL Neut # (Auto) 6.16 (1.4-6.5) K/uL Lymph # (Auto) 2.59 (1.2-3.4) K/uL [place] # (Auto) 0.82 H (0.11-0.59) K/uL Eos # (Auto) 0.41 (0-0.5) K/uL Baso # (Auto) 0.04 (0-0.2) K/uL Sodium 138 (136-145) mmol/L Potassium (3.5-5.1) mmol/L Chloride 102 (98-107) mmol/L Carbon Dioxide 29 (21-32) mmol/L Anion Gap 7.0 (3-11) BUN 22 H (7-18) mg/dl Creatinine 1.18 (0.6-1.2) mg/dl Est Cr Clr Drug Dosing Not Reportable Est GFR ( Amer) 48.0 Est GFR (Non-Af Amer) 41.4 BUN/Creatinine Ratio 18.4 (10-20) Glucose 123 H (70-99) mg/dl Calcium 9.8 (8.5-10.1) mg/dl Magnesium (1.8-2.4) mg/dl Total Bilirubin 1.0 (0.2-1) mg/dl AST (15-37) U/L ALT 23 (12-78) U/L Alkaline Phosphatase 100 (45-117) U/L Troponin I < 0.015 (0-0.045) ng/ml Total Protein 7.8 (6.4-8.2) gm/dl Albumin 3.8 (3.4-5.0) gm/dl Globulin 4.0 (2.5-4.0) gm/dl Albumin/Globulin Ratio 1.0 (0.9-2) TSH 3.090 (0.300-4.500) uIu/ml Code Status & VTE Plan Code Status DNR VTE Prophylaxis Plan VTE Prophylaxis will be ordered: Yes PG Care Time/CCT Total # of Minutes Spent Total Time Spent with Patient: Total time spent is greater than 50% in coordination of care (as documented) at patient's floor/unit and/or counseling patient: (1) Falls Encounter type: initial encounter Qualified Code(s): W19.XXXA - Unspecified fall, initial encounter (2) Fracture of rib Encounter type: initial encounter Fracture type: closed Laterality: left Rib fracture type: multiple ribs Qualified Code(s): S22.42XA - Multiple fractures of ribs, left side, initial encounter for closed fracture (3) Traumatic ecchymosis of flank Encounter type: initial encounter Qualified Code(s): S30.1XXA - Contusion of abdominal wall, initial encounter (4) Diabetes Diabetes mellitus type: type 2 Diabetes mellitus nursing home insulin use: without terminal worker use Diabetes mellitus complication status: without complication Qualified Code(s): E11.9 - Type 2 diabetes mellitus without complications
[2019-06-30] MEDS ORDERED: GLUCOSE 10 TABS/TUBE PO PRN (21:15)
[2019-06-30] MEDS ORDERED: GLUCAGON FOR INJ 1 MG VIAL SQ PRN (21:15)
[2019-06-30] MEDS ORDERED: DEXTROSE 50% 50 ML SYRINGE IV PRN (21:15)
[2019-06-30] MEDS ORDERED: DOCUSATE SODIUM 100 MG CAP PO PRN (21:15)
[2019-06-30] MEDS ORDERED: ONDANSETRON INJ 2 MG/ML 2 ML VIAL IV PRN (21:15)
[2019-06-30] MEDS ORDERED: GLUCOSE 40% GEL 15 GM TUBE PO PRN (21:15)
[2019-06-30] MEDS ORDERED: CARBOHYDRATES FOR HYPOGLYCEMIA PO PRN (21:15)
[2019-06-30] MEDS: ALBUTEROL 0.083% NEBU SOLN 3 ML VIAL INH SCH (21:52)
[2019-06-30] MEDS: FLUTICASONE PROPIONATE NA SPR 16 GM BTL SCH (22:34)
[2019-06-30] MEDS: CALCIUM 600MG + VIT D 400 IU TAB PO SCH (22:34)
[2019-06-30] MEDS: CETIRIZINE HCL 10 MG TABLET PO SCH (22:36)
[2019-06-30] MEDS: ACETAMINOPHEN 500 MG TAB PO SCH (22:37)
[2019-06-30] MEDS: INSULIN ASPART 100 UNITS/ML 3 ML PEN SC SCH (22:48)
[2019-06-30] MEDS: LIDOCAINE 5% 1 PATCH TD SCH (23:42)
[2019-07-01] MEDS: ACETAMINOPHEN 500 MG TAB PO SCH ×3 (05:31→21:03)
[2019-07-01 06:45] LABS: Appearance Urine Cloudy (Clear); Bacteria Urine Automated Negative (Negative); Bilirubin Urine Negative (Negative); Blood Urine Negative (Negative); Cast Urine Automated 0 /lpf (0-5); Color Urine Yellow; Epithelial Cell Urine Auto >30 /lpf (0-5); Glucose Urine UA Negative (Negative); Ketones Urine Negative (Negative); Leukocyte Esterase Urine 1+ (Negative); Nitrite Urine Negative (Negative); Protein Urine Negative (Negative); RBC Urine Automated 0-4 /hpf (0-4); Specific Gravity Urine 1.023 (1.000-1.030); Urobilinogen Urine Negative (Negative)
[2019-07-01] MEDS: ALBUTEROL 0.083% NEBU SOLN 3 ML VIAL INH SCH ×3 (07:02→18:57)
[2019-07-01] MEDS: SERTRALINE HCL 100 MG TABLET PO SCH (08:45)
[2019-07-01] MEDS: LISINOPRIL 5 MG TAB PO SCH (08:45)
[2019-07-01] MEDS: ATORVASTATIN 20 MG TAB PO SCH (08:45)
[2019-07-01] MEDS: MIRABEGRON ER 25 MG TAB PO SCH (08:45)
[2019-07-01] MEDS: FOLIC ACID 1 MG TAB PO SCH (08:45)
[2019-07-01] MEDS: PANTOprazole 40 MG TAB PO SCH (08:46)
[2019-07-01] MEDS: CALCIUM 600MG + VIT D 400 IU TAB PO SCH ×2 (08:46→21:00)
[2019-07-01] MEDS: DULOXETINE HCL 30 MG CAP PO SCH (08:46)
[2019-07-01] MEDS: INSULIN ASPART 100 UNITS/ML 3 ML PEN SC SCH ×4 (08:59→21:33)
[2019-07-01 09:56] LABS: Hematocrit (blood only) 39.1 % (37-47); Hemoglobin 12.5 g/dL (12.0-16.0); Mean Corpuscular Volume 93.8 fL (80-100); Mean Platelet Volume 11.5 fL (7.4-10.4); Platelet Count 144 K/uL (130-400); RDW Coefficient of Variation 13.8 % (11.5-14.5); Red Blood Count 4.17 M/uL (4.2-5.4)
[2019-07-01] MEDS: LIDOCAINE 5% 1 PATCH TD SCH (10:04)
[2019-07-01] MEDS: CALCITONIN SALMON NA 200 IU/AC 3.7 ML BTL SCH (10:04)
[2019-07-01 10:43] LABS: BUN Creatinine Ratio 12.9 (10-20); Calcium 9.2 mg/dl (8.5-10.1); Creatinine Clr Calc Pharmacy 38.6 ml/min; Est GFR (African American) 51.7; Est GFR (Non-African American) 44.6; Potassium 4.1 mmol/L (3.5-5.1)
--- NOTE | 2019-07-01 12:06 | Hospitalist Progress Note ---
Date of Service July 01, 2019 Assessment & Plan (1) Falls: - Pt. has been falling frequently at home, likely mechanical related to deconditioning. Admitted for rehab placement. - PT/OT evaluation - discharge likely on Saturday to rehab. - Fall precautions. - Monitor vital signs closely, including orthostatics if necessary. (2) Fracture of rib: - Pt. fell on her left side; has left 8th and 9th rib fractures 2/2 fall. - Lidocaine patch & Tylenol 1 gm PO q8hr scheduled. - Calcitonin spray daily. - Heating pad prn. - Pt. does not want to use narcotics due to family history of abuse; consider Tramadol vs. Toradol if necessary. (3) Traumatic ecchymosis of flank: - Large hematoma of left flank region and small hematoma of left lateral thigh noted on exam; remains within demarcation lines. - Holding home ASA and Plavix; also holding pharmacologic ppx. - Measure area daily. - Monitor CBC qAM. (4) Type II diabetes mellitus: - Hgb A1C was 7.2 in March 2019. - SSI coverage ordered with gluc checks ac/hs. (5) Hx of supraventricular tachycardia: - S/p ablation at [facility]. - No indication for environmental monitoring technician. (6) History of TIA (transient ischemic attack): - Currently on ASA/Plavix -- holding in setting of hematoma. - Continue statin as prescribed. - No neuro deficits noted during this admission. (7) HLD (hyperlipidemia): - Continue statin as prescribed. (8) HTN (hypertension): - Continue Lisinopril 5 mg daily. (9) Neuropathy: - Continue Cymbalta as prescribed. (10) GERD (gastroesophageal reflux disease): - PPI daily. (11) Depression: - Continue Zoloft and Cymbalta as prescribed. (12) Obstructive sleep apnea: - Does not currently use CPAP or BiPAP at home.' (13) Swallowing difficulty: - Reports difficultly swallowing over last year, mostly with liquids. - Speech therapy evaluation ordered. (14) Morbid obesity: - BMI 41 -- encourage weight loss and exercise. (15) DVT prophylaxis: - Holding pharmacologic ppx in setting of hematoma. Dispo: Med/surg; discharge to rehab likely on Saturday. Supervising Physician Co-Signing Physician Notes Attending Attestation - Chart reviewed, care plan d/w CHERISE Anglin. I agree w/ the cohen components of her documentation. 89yo female with recurrent falls over the years s/p fall prior to admission with resulting left-sided rib fractures and traumatic contusion to left posterior hemithorax. Fortunately no internal injuries on real-CT except the rib fractures. Will need post-d/c rehab. Santos Porras MD Subjective Pt. complains of left rib pain in setting of rib fractures. Pain is rated as a 3/10 on pain scale. Denies shortness of breath, pleuritic chest pain. She also has issues swallowing - states water is getting caught in her throat when she attempts to swallow. Reports this has been an issue over the last year but was not evaluated as outpatient. Will order swallow study. She is mildly anxious related to recent life events -- her was moved to the memory unit and she has not seen him in 1 week. Pt. is also stressed about recent fall leading to rib fractures. Review of Systems Review of Systems: All systems reviewed & are unremarkable except as noted in HPI & below Constitutional: no fever, no chills, no fatigue, no weakness and no anorexia Respiratory: no cough, no dyspnea, no dyspnea on exertion, no pain on inspiration and no wheezing Cardiovascular: no chest pain, no palpitations and no edema Gastrointestinal: no abdominal pain, no nausea and no constipation Genitourinary: no difficulty urinating Musculoskeletal: + joint pain (Left rib pain ); no back pain Integumentary: no non-healing lesions Psychiatric: + anxiety (related to recent life events ) Allergy / Immunological: no rash Physical Exam Physical Exam: General: Resting comfortably HEENT: NC/AT; PERRLA with EOMI; [place] conjunctiva, MMM. No erythema of posterior pharynx Neck: Supple and nontender Cardiac: RRR Lungs: CTA bilaterally Abdomen: Bowel normoactive X 4; TTP over hematoma site. Extremities: Warm. No edema present Neuro: No focal weakness Skin: large hematoma noted over left flank region and small hematoma noted on left lateral thigh - both hematomas are within demarcation lines, no significant change. TTP over site of left flank hematoma. Results & Data Vital Signs (Past 12 Hours) Vital Signs Temp Pulse Resp BP Pulse Ox 07/01/19 11:16 88 24 93 07/01/19 07:24 36.5 C 84 16 133/73 91 07/01/19 07:04 79 16 93 Laboratory Results 07/01/19 07/01/19 07/01/19 Range/Units 09:42 09:42 08:13 WBC 7.30 (4.8-10.8) K/uL RBC 4.17 L (4.2-5.4) M/uL Hgb 12.5 (12.0-16.0) g/dL Hct 39.1 (37-47) % MCV 93.8 (80-100) fL MCH 30.0 (25-34) pg MCHC 32.0 (32-36) g/dL RDW Std Deviation 47.0 H (36.4-46.3) fL RDW Coeff of Lauren 13.8 (11.5-14.5) % Plt Count 144 (130-400) K/uL MPV 11.5 H (7.4-10.4) fL Immature Gran % (Auto) % Neut % (Auto) % Lymph % (Auto) % [place] % (Auto) % Eos % (Auto) % Baso % (Auto) % Immature Gran # (Auto) (0.00-0.02) K/uL Neut # (Auto) (1.4-6.5) K/uL Lymph # (Auto) (1.2-3.4) K/uL [place] # (Auto) (0.11-0.59) K/uL Eos # (Auto) (0-0.5) K/uL Baso # (Auto) (0-0.2) K/uL Sodium 143 (136-145) mmol/L Potassium 4.1 (3.5-5.1) mmol/L Chloride 109 H (98-107) mmol/L Carbon Dioxide 29 (21-32) mmol/L Anion Gap 5.0 (3-11) BUN 14 (7-18) mg/dl Creatinine 1.11 (0.6-1.2) mg/dl Est Cr Clr Drug Dosing 38.6 Est GFR ( Amer) 51.7 Est GFR (Non-Af Amer) 44.6 BUN/Creatinine Ratio 12.9 (10-20) Glucose 194 H (70-99) mg/dl POC Glucose 131 H (70-99) Calcium 9.2 (8.5-10.1) mg/dl Magnesium (1.8-2.4) mg/dl Total Bilirubin (0.2-1) mg/dl AST (15-37) U/L ALT (12-78) U/L Alkaline Phosphatase (45-117) U/L Troponin I (0-0.045) ng/ml Total Protein (6.4-8.2) gm/dl Albumin (3.4-5.0) gm/dl Globulin (2.5-4.0) gm/dl Albumin/Globulin Ratio (0.9-2) TSH (0.300-4.500) uIu/ml Urine Color Urine Appearance (Clear) Urine pH (4.5-7.5) Ur Specific Art (1.000-1.030) Urine Protein (Negative) Urine Glucose (UA) (Negative) Urine Ketones (Negative) Urine Blood (Negative) Urine Nitrite (Negative) Urine Bilirubin (Negative) Urine Urobilinogen (Negative) Ur Leukocyte Esterase (Negative) Urine WBC (Auto) (0-5) /hpf Urine RBC (Auto) (0-4) /hpf U Hyaline Cast (Auto) (0-5) /lpf U Epithel Cells (Auto) (0-5) /lpf Urine Bacteria (Auto) (Negative) Urine Yeast (None Prsent) 07/01/19 06/30/19 06/30/19 Range/Units 05:38 22:35 16:28 WBC (4.8-10.8) K/uL RBC (4.2-5.4) M/uL Hgb (12.0-16.0) g/dL Hct (37-47) % MCV (80-100) fL MCH (25-34) pg MCHC (32-36) g/dL RDW Std Deviation (36.4-46.3) fL RDW Coeff of Lauren (11.5-14.5) % Plt Count (130-400) K/uL MPV (7.4-10.4) fL Immature Gran % (Auto) % Neut % (Auto) % Lymph % (Auto) % [place] % (Auto) % Eos % (Auto) % Baso % (Auto) % Immature Gran # (Auto) (0.00-0.02) K/uL Neut # (Auto) (1.4-6.5) K/uL Lymph # (Auto) (1.2-3.4) K/uL [place] # (Auto) (0.11-0.59) K/uL Eos # (Auto) (0-0.5) K/uL Baso # (Auto) (0-0.2) K/uL Sodium 138 (136-145) mmol/L Potassium (3.5-5.1) mmol/L Chloride 102 (98-107) mmol/L Carbon Dioxide 29 (21-32) mmol/L Anion Gap 7.0 (3-11) BUN 22 H (7-18) mg/dl Creatinine 1.18 (0.6-1.2) mg/dl Est Cr Clr Drug Dosing Not Reportable Est GFR ( Amer) 48.0 Est GFR (Non-Af Amer) 41.4 BUN/Creatinine Ratio 18.4 (10-20) Glucose 123 H (70-99) mg/dl POC Glucose 156 H (70-99) Calcium 9.8 (8.5-10.1) mg/dl Magnesium (1.8-2.4) mg/dl Total Bilirubin 1.0 (0.2-1) mg/dl AST (15-37) U/L ALT 23 (12-78) U/L Alkaline Phosphatase 100 (45-117) U/L Troponin I < 0.015 (0-0.045) ng/ml Total Protein 7.8 (6.4-8.2) gm/dl Albumin 3.8 (3.4-5.0) gm/dl Globulin 4.0 (2.5-4.0) gm/dl Albumin/Globulin Ratio 1.0 (0.9-2) TSH 3.090 (0.300-4.500) uIu/ml Urine Color Yellow Urine Appearance Cloudy A (Clear) Urine pH 5.0 (4.5-7.5) Ur Specific Art 1.023 (1.000-1.030) Urine Protein Negative (Negative) Urine Glucose (UA) Negative (Negative) Urine Ketones Negative (Negative) Urine Blood Negative (Negative) Urine Nitrite Negative (Negative) Urine Bilirubin Negative (Negative) Urine Urobilinogen Negative (Negative) Ur Leukocyte Esterase 1+ H (Negative) Urine WBC (Auto) 10-30 H (0-5) /hpf Urine RBC (Auto) 0-4 (0-4) /hpf U Hyaline Cast (Auto) 0 (0-5) /lpf U Epithel Cells (Auto) >30 H (0-5) /lpf Urine Bacteria (Auto) Negative (Negative) Urine Yeast Budding A (None Prsent) 06/30/19 Range/Units 16:28 WBC 10.03 (4.8-10.8) K/uL RBC 4.46 (4.2-5.4) M/uL Hgb 13.6 (12.0-16.0) g/dL Hct 41.3 (37-47) % MCV 92.6 (80-100) fL MCH 30.5 (25-34) pg MCHC 32.9 (32-36) g/dL RDW Std Deviation 46.2 (36.4-46.3) fL RDW Coeff of Lauren 13.8 (11.5-14.5) % Plt Count 203 (130-400) K/uL MPV 10.8 H (7.4-10.4) fL Immature Gran % (Auto) 0.1 % Neut % (Auto) 61.4 % Lymph % (Auto) 25.8 % [place] % (Auto) 8.2 % Eos % (Auto) 4.1 % Baso % (Auto) 0.4 % Immature Gran # (Auto) 0.01 (0.00-0.02) K/uL Neut # (Auto) 6.16 (1.4-6.5) K/uL Lymph # (Auto) 2.59 (1.2-3.4) K/uL [place] # (Auto) 0.82 H (0.11-0.59) K/uL Eos # (Auto) 0.41 (0-0.5) K/uL Baso # (Auto) 0.04 (0-0.2) K/uL Sodium (136-145) mmol/L Potassium (3.5-5.1) mmol/L Chloride (98-107) mmol/L Carbon Dioxide (21-32) mmol/L Anion Gap (3-11) BUN (7-18) mg/dl Creatinine (0.6-1.2) mg/dl Est Cr Clr Drug Dosing Est GFR ( Amer) Est GFR (Non-Af Amer) BUN/Creatinine Ratio (10-20) Glucose (70-99) mg/dl POC Glucose (70-99) Calcium (8.5-10.1) mg/dl Magnesium (1.8-2.4) mg/dl Total Bilirubin (0.2-1) mg/dl AST (15-37) U/L ALT (12-78) U/L Alkaline Phosphatase (45-117) U/L Troponin I (0-0.045) ng/ml Total Protein (6.4-8.2) gm/dl Albumin (3.4-5.0) gm/dl Globulin (2.5-4.0) gm/dl Albumin/Globulin Ratio (0.9-2) TSH (0.300-4.500) uIu/ml Urine Color Urine Appearance (Clear) Urine pH (4.5-7.5) Ur Specific Art (1.000-1.030) Urine Protein (Negative) Urine Glucose (UA) (Negative) Urine Ketones (Negative) Urine Blood (Negative) Urine Nitrite (Negative) Urine Bilirubin (Negative) Urine Urobilinogen (Negative) Ur Leukocyte Esterase (Negative) Urine WBC (Auto) (0-5) /hpf Urine RBC (Auto) (0-4) /hpf U Hyaline Cast (Auto) (0-5) /lpf U Epithel Cells (Auto) (0-5) /lpf Urine Bacteria (Auto) (Negative) Urine Yeast (None Prsent) PG Care Time/CCT Total # of Minutes Spent Total Time Spent with Patient: Total time spent is greater than 50% in coordination of care (as documented) at patient's floor/unit and/or counseling patient: (1) Traumatic ecchymosis of flank Encounter type: initial encounter Qualified Code(s): S30.1XXA - Contusion of abdominal wall, initial encounter (2) Fracture of rib Encounter type: initial encounter Fracture type: closed Laterality: left Rib fracture type: multiple ribs Qualified Code(s): S22.42XA - Multiple fractures of ribs, left side, initial encounter for closed fracture (3) Falls Encounter type: initial encounter Qualified Code(s): W19.XXXA - Unspecified fall, initial encounter
[2019-07-01] MEDS ORDERED: TRAMADOL HCL 50 MG TABLET PO PRN (17:15)
[2019-07-01] MEDS: FLUTICASONE PROPIONATE NA SPR 16 GM BTL SCH (21:00)
[2019-07-01] MEDS: CETIRIZINE HCL 10 MG TABLET PO SCH (21:03)
[2019-07-02] MEDS: ACETAMINOPHEN 500 MG TAB PO SCH ×3 (06:03→21:39)
[2019-07-02] MEDS: ALBUTEROL 0.083% NEBU SOLN 3 ML VIAL INH SCH ×2 (07:17→19:29)
[2019-07-02 08:25] LABS: Hematocrit (blood only) 38.8 % (37-47); Hemoglobin 12.6 g/dL (12.0-16.0); Mean Corpuscular Hgb Conc 32.5 g/dL (32-36); Mean Platelet Volume 11.2 fL (7.4-10.4); Platelet Count 161 K/uL (130-400); RDW Coefficient of Variation 13.7 % (11.5-14.5); RDW Standard Deviation 46.5 fL (36.4-46.3); Red Blood Count 4.17 M/uL (4.2-5.4); White Blood Count 7.83 K/uL (4.8-10.8)
[2019-07-02] MEDS: PANTOprazole 40 MG TAB PO SCH (08:38)
[2019-07-02] MEDS: CALCIUM 600MG + VIT D 400 IU TAB PO SCH ×2 (08:38→21:40)
[2019-07-02] MEDS: MIRABEGRON ER 25 MG TAB PO SCH (08:38)
[2019-07-02] MEDS: LISINOPRIL 5 MG TAB PO SCH (08:38)
[2019-07-02] MEDS: CALCITONIN SALMON NA 200 IU/AC 3.7 ML BTL SCH (08:38)
[2019-07-02] MEDS: DULOXETINE HCL 30 MG CAP PO SCH (08:38)
[2019-07-02] MEDS: SERTRALINE HCL 100 MG TABLET PO SCH (08:38)
[2019-07-02] MEDS: ATORVASTATIN 20 MG TAB PO SCH (08:38)
[2019-07-02] MEDS: FOLIC ACID 1 MG TAB PO SCH (08:38)
[2019-07-02] MEDS: INSULIN ASPART 100 UNITS/ML 3 ML PEN SC SCH ×4 (08:39→21:03)
[2019-07-02] MEDS: LIDOCAINE 5% 1 PATCH TD SCH (08:39)
[2019-07-02 08:51] LABS: BUN Creatinine Ratio 11.3 (10-20); Calcium 8.8 mg/dl (8.5-10.1); Creatinine Clr Calc Pharmacy 46.1 ml/min; Est GFR (Non-African American) 55.3; Potassium 3.7 mmol/L (3.5-5.1)
--- NOTE | 2019-07-02 15:48 | Hospitalist Progress Note ---
Date of Service July 02, 2019 Assessment & Plan (1) Falls: - Pt. has been falling frequently at home, likely mechanical related to deconditioning. Admitted for rehab placement. - PT/OT evaluation - discharge to rehab on Saturday. - Fall precautions. (2) Fracture of rib: - Pt. fell on her left side; has left 8th and 9th rib fractures 2/2 fall. - Lidocaine patch & Tylenol 1 gm PO q8hr scheduled. Tramadol prn pain. - Calcitonin spray daily. - Pt. does not want to use narcotics due to family history of abuse. (3) Traumatic ecchymosis of flank: - Large hematoma of left flank region and small hematoma of left lateral thigh noted on exam; improving based on demarcation lines. - Holding home ASA and Plavix; plan to resume single agent Plavix at discharge, no indication for dual therapy. - Measure area daily. - Monitor CBC qAM - H/H has been stable. (4) Type II diabetes mellitus: - Hgb A1C was 7.2 in March 2019. - SSI coverage ordered with gluc checks ac/hs. (5) Hx of supraventricular tachycardia: - [place] [facility] [place] - No indication for ekg monitor tech. (6) History of TIA (transient ischemic attack): - Currently on ASA/Plavix -- holding in setting of hematoma. Plan to resume single agent Plavix at discharge, d/c ASA. - Continue statin as prescribed. - No neuro deficits noted during this admission. (7) HLD (hyperlipidemia): - Continue statin as prescribed. (8) HTN (hypertension): - Continue Lisinopril 5 mg daily. (9) Neuropathy: - Continue Cymbalta as prescribed. (10) GERD (gastroesophageal reflux disease): - PPI daily. (11) Depression: - Continue Cymbalta as prescribed. - Pt. has worsening depression -- likely related to recent life events, including movement of her to the memory unit. Will increase Zoloft to 125 mg daily. - Encourage patient to go outside -- nurse will take her to the [facility] this afternoon. (12) Obstructive sleep apnea: - Does not currently use CPAP or BiPAP at home. - O2 via NC prn. (13) Swallowing difficulty: - Reports difficultly swallowing over last year, mostly with liquids. - Speech therapy approved slippery diet, no further work up necessary. (14) Morbid obesity: - BMI 41 -- encourage weight loss and exercise. (15) DVT prophylaxis: - Holding pharmacologic ppx in setting of hematoma. Dispo: Med/surg; discharge to rehab on Saturday. Supervising Physician Co-Signing Physician Notes Attending Attestation - Chart reviewed, care plan d/w CHERISE Anglin. I agree w/ the cohen components of her documentation. 89yo female with recurrent falls over the years s/p fall prior to admission with resulting left-sided rib fractures and traumatic contusion to left posterior hemithorax. Fortunately no internal injuries on real-CT except the rib fractures. Agree with holding asa/plavix for now. H/H stable since admission. Dispo planning. Santos Porras MD Subjective Pt. is very depressed today -- she states she feels like giving up, discontinuing all medications, etc. Denies significant pain in left abdomen at site of fractures or hematoma. Continues to have trouble swallowing, cleared by speech therapy. Has decreased appetite, denies nausea/vomiting. Review of Systems Review of Systems: All systems reviewed & are unremarkable except as noted in HPI & below Constitutional: + fatigue, + weakness and + anorexia; no fever and no chills Respiratory: no cough, no dyspnea, no dyspnea on exertion and no wheezing Cardiovascular: no chest pain, no palpitations and no edema Gastrointestinal: no abdominal pain, no nausea, no vomiting and no constipation Genitourinary: no difficulty urinating Musculoskeletal: no back pain and no joint pain Integumentary: no non-healing lesions Psychiatric: + depression and + hopelessness Physical Exam Physical Exam: General: Resting comfortably; appears depressed/emotional. HEENT: NC/AT; PERRLA with EOMI; [place] conjunctiva, MMM. No erythema of posterior pharynx Neck: Supple and nontender Cardiac: RRR Lungs: CTA bilaterally Abdomen: Bowel normoactive X 4; TTP over hematoma site. Extremities: Warm. No edema present Neuro: No focal weakness Skin: large hematoma over left flank region and small hematoma noted on left lateral thigh - both hematomas are improvoing. Results & Data Vital Signs (Past 12 Hours) Vital Signs Temp Pulse Pulse Pulse Resp BP BP 07/02/19 14:52 36.6 C 94 H 18 149/80 H 176/85 H 07/02/19 07:21 91 H 16 07/02/19 07:00 36.8 C 86 18 138/78 Pulse Ox 07/02/19 14:52 93 07/02/19 07:21 98 07/02/19 07:00 98 Laboratory Results 07/02/19 07/02/19 07/02/19 Range/Units 12:10 08:23 07:57 WBC (4.8-10.8) K/uL RBC (4.2-5.4) M/uL Hgb (12.0-16.0) g/dL Hct (37-47) % MCV (80-100) fL MCH (25-34) pg MCHC (32-36) g/dL RDW Std Deviation (36.4-46.3) fL RDW Coeff of Lauren (11.5-14.5) % Plt Count (130-400) K/uL MPV (7.4-10.4) fL Sodium 144 (136-145) mmol/L Potassium 3.7 (3.5-5.1) mmol/L Chloride 109 H (98-107) mmol/L Carbon Dioxide 30 (21-32) mmol/L Anion Gap 5.0 (3-11) BUN 11 (7-18) mg/dl Creatinine 0.93 (0.6-1.2) mg/dl Est Cr Clr Drug Dosing 46.1 ml/min Est GFR ( Amer) 64.0 Est GFR (Non-Af Amer) 55.3 BUN/Creatinine Ratio 11.3 (10-20) Glucose 131 H (70-99) mg/dl POC Glucose 140 H 165 H (70-99) Calcium 8.8 (8.5-10.1) mg/dl 07/02/19 07/01/19 07/01/19 Range/Units 07:57 20:07 17:11 WBC 7.83 (4.8-10.8) K/uL RBC 4.17 L (4.2-5.4) M/uL Hgb 12.6 (12.0-16.0) g/dL Hct 38.8 (37-47) % MCV 93.0 (80-100) fL MCH 30.2 (25-34) pg MCHC 32.5 (32-36) g/dL RDW Std Deviation 46.5 H (36.4-46.3) fL RDW Coeff of Lauren 13.7 (11.5-14.5) % Plt Count 161 (130-400) K/uL MPV 11.2 H (7.4-10.4) fL Sodium (136-145) mmol/L Potassium (3.5-5.1) mmol/L Chloride (98-107) mmol/L Carbon Dioxide (21-32) mmol/L Anion Gap (3-11) BUN (7-18) mg/dl Creatinine (0.6-1.2) mg/dl Est Cr Clr Drug Dosing ml/min Est GFR ( Amer) Est GFR (Non-Af Amer) BUN/Creatinine Ratio (10-20) Glucose (70-99) mg/dl POC Glucose 159 H 142 H (70-99) Calcium (8.5-10.1) mg/dl PG Care Time/CCT Total # of Minutes Spent Total Time Spent with Patient: Total time spent is greater than 50% in coordination of care (as documented) at patient's floor/unit and/or counseling patient: (1) Traumatic ecchymosis of flank Encounter type: initial encounter Qualified Code(s): S30.1XXA - Contusion of abdominal wall, initial encounter (2) Fracture of rib Encounter type: initial encounter Fracture type: closed Laterality: left Rib fracture type: multiple ribs Qualified Code(s): S22.42XA - Multiple fractures of ribs, left side, initial encounter for closed fracture (3) Falls Encounter type: initial encounter Qualified Code(s): W19.XXXA - Unspecified fall, initial encounter
[2019-07-02] MEDS: CETIRIZINE HCL 10 MG TABLET PO SCH (21:39)
[2019-07-02] MEDS: FLUTICASONE PROPIONATE NA SPR 16 GM BTL SCH (21:40)
[2019-07-03] MEDS: ACETAMINOPHEN 500 MG TAB PO SCH ×2 (05:21→13:40)
[2019-07-03 07:18] LABS: Hematocrit (blood only) 41.6 % (37-47); Hemoglobin 13.8 g/dL (12.0-16.0); Mean Corpuscular Hgb Conc 33.2 g/dL (32-36); Mean Corpuscular Volume 92.2 fL (80-100); Mean Platelet Volume 10.9 fL (7.4-10.4); Platelet Count 160 K/uL (130-400); RDW Coefficient of Variation 13.8 % (11.5-14.5); RDW Standard Deviation 46.8 fL (36.4-46.3); Red Blood Count 4.51 M/uL (4.2-5.4); White Blood Count 9.77 K/uL (4.8-10.8)
[2019-07-03] MEDS: ALBUTEROL 0.083% NEBU SOLN 3 ML VIAL INH SCH (07:19)
[2019-07-03] MEDS: CALCITONIN SALMON NA 200 IU/AC 3.7 ML BTL SCH (08:52)
[2019-07-03] MEDS: CALCIUM 600MG + VIT D 400 IU TAB PO SCH (08:52)
[2019-07-03] MEDS: DULOXETINE HCL 30 MG CAP PO SCH (08:52)
[2019-07-03] MEDS: FOLIC ACID 1 MG TAB PO SCH (08:52)
[2019-07-03] MEDS: LIDOCAINE 5% 1 PATCH TD SCH (08:53)
[2019-07-03] MEDS: LISINOPRIL 5 MG TAB PO SCH (08:55)
[2019-07-03] MEDS: PANTOprazole 40 MG TAB PO SCH (08:55)
[2019-07-03] MEDS: ATORVASTATIN 20 MG TAB PO SCH (08:55)
[2019-07-03] MEDS: MIRABEGRON ER 25 MG TAB PO SCH (08:55)
[2019-07-03] MEDS ORDERED: SERTRALINE HCL 50 MG TABLET PO SCH (09:00)
[2019-07-03] MEDS: INSULIN ASPART 100 UNITS/ML 3 ML PEN SC SCH ×2 (09:14→13:24)
--- NOTE | 2019-07-03 15:48 | Discharge Summary ---
Date of Service July 03, 2019 Admission HPI Per Admitting Provider Lindsey Garcia is an 89yo C female with history of DM, hypothyroidism presenting after a fall at home. Patient reports that her falls began in 2010 when she fell down the basement stairs in her home. This fall resulted in a RUE fracture and an extended stay in a rehabilitation facility. Since 2010 she continues to fall on a fairly regular basis. Her most recent fall was6 days ago in her home. She reports that she was standing in her living room getting ready for her Saturday night spa bath. She was leaning on her walker and reached for something on a table and lost her balance. She fell and hit the leg of a table with her left flank. She denies loss of consciousness or head trauma. Denies CP/palpitations/numbness/weakness. Patient presently resides at [facility]. She is living independently in an apartment. Her is also at [facility] and was recently moved to the Memory unit. She wishes to be transferred to the [facility] after her hospital stay. ER Course: Lidocaine patch, Morphine 4mg IV Admission Exam Per Admitting Provider General: patient resting comfortably, NAD, non-toxic in appearance, AA&O x 4 Skin: warm, dry, intact, large ecchymotic area on left flank, back and anterior thigh, mildly tender to palpation HEENT: NC/AT, PERRL, EOMI, anicteric sclera, conjunctiva without injection, external ear normal to inspection and nontender, nares patent, moist mucus membranes, dentition intact, no oropharyngeal lesions, neck supple, trachea midline, no LAD, no thyromegaly, no JVD Heart: +S1/S2, regular, no m/r/g Lungs: equal air entry bilaterally, no rales/rhonchi/wheezes Abd: +BS, soft, NT/ND, no masses/organomegaly/ascites Ext: warm, 2+ pulses in UE/LE bilaterally, no clubbing/cyanosis or edema Neuro: nonfocal, patient AA&O x 4, speech intact, no facial droop, moving all extremities on command with equal strength 5/5 Principal Diagnosis Falls, Left Rib Fractures, Left Flank Hematoma Discharge Exam General: Resting comfortably; appears depressed/emotional. HEENT: NC/AT; PERRLA with EOMI; [place] conjunctiva, MMM. No erythema of posterior pharynx Neck: Supple and nontender Cardiac: RRR Lungs: CTA bilaterally Abdomen: Bowel normoactive X 4; Non TTP. Extremities: Warm. No edema present Neuro: No focal weakness Skin: large hematoma over left flank region and small hematoma noted on left lateral thigh - both hematomas are resolving. Discharge Data Allergies Allergy/AdvReac Type Severity Reaction Status Date / Time Nitrate Analogues Allergy Unknown UNKNOWN Verified 06/30/19 14:34 nitrofurantoin Allergy Unknown UNKNOWN Verified 06/30/19 14:34 ciprofloxacin [From Cipro] AdvReac Verified 06/30/19 14:34 metformin AdvReac Diarrhea Verified 06/30/19 14:34 Consultations 06/30/19 19:38 ED Decision to Admit Stat Ordered Studies 06/30/19 16:39 CT head/brain wo con Stat CXR/Hip & Pelvis XR 06/30/19 17:14 CT abd pelvis IV con only Stat CT chest w con Stat Hospital Course (1) Falls: Pt. has been falling frequently at home, likely mechanical related to deconditioning. Admitted for rehab placement. PT/OT evaluation - discharge to rehab today. Also recommend 30 day event monitor -- pt. reports being lightheaded prior to falls. Nurse navigator will arrange event monitor. (2) Fracture of rib: Pt. fell on her left side; has left 8th and 9th rib fractures 2/2 fall. Lidocaine patch & Tylenol 1 gm PO q8hr scheduled. Tramadol prn pain. Calcitonin spray daily. Pt. does not want to use narcotics due to family history of abuse. (3) Traumatic ecchymosis of flank: Large hematoma of left flank region and small hematoma of left lateral thigh noted on exam; resolving based on demarcation lines. Held home ASA and Plavix; resume single agent Plavix at discharge, no indication for dual therapy. Monitored CBC qAM - H/H stable. (4) Type II diabetes mellitus: Hgb A1C was 7.2 in March 2019. SSI coverage ordered with gluc checks ac/hs. (5) Hx of supraventricular tachycardia: S/p ablation at [facility] [place]. No indication for curer acid drum. (6) History of TIA (transient ischemic attack): On ASA/Plavix -- held in setting of hematoma. Resumed single agent Plavix at discharge, d/c ASA. Continued statin as prescribed. No neuro deficits noted during this admission. (7) HLD (hyperlipidemia): Continued statin as prescribed. (8) HTN (hypertension): Continued Lisinopril 5 mg daily. (9) Neuropathy: Continued Cymbalta as prescribed. (10) GERD (gastroesophageal reflux disease): PPI daily. (11) Depression: Continued Cymbalta as prescribed. Pt. has worsening depression -- likely related to recent life events, including movement of her to the memory unit. Increased Zoloft to 125 mg daily. (12) Obstructive sleep apnea: Does not currently use CPAP or BiPAP at home. O2 via NC prn. (13) Swallowing difficulty: Reports difficultly swallowing over last year, mostly with liquids. Speech therapy approved slippery diet, no further work up necessary. (14) Morbid obesity: BMI 41 -- encourage weight loss and exercise. (15) DVT prophylaxis: Held pharmacologic ppx in setting of hematoma. Resume Plavix at discharge. Discharge to SNF on 07/03/19. Total Time Total Time Spent Total Time Spent (In Minutes): >30 minutes Total Time Includes: Examination of the Patient, Discharge Planning, Medication Reconciliation, Communication With Other Providers and Other Discharge Plan Discharge Items Patient Disposition: Transfer Longterm Fac Reason For Visit: FALL Discharge Diagnosis: Fall, Left Rib Fractures, Left Flank Hematoma Condition: Good Discharge Goals: Decrease discomfort, Improve disease control, Improve function, Increase independence and Prevent disease Activity: As commented below Activity Comment: Per PT/OT. Non-emergency contact: Primary Care Provider Call non-emergency contact if: you have any medication questions, your symptoms worsen, your pain is not controlled, your pain is worsening, your pain is unusual for you, your pain is concerning for you and you have a fever Follow-up/Referrals: Slick Reinoso MD [Primary Care Provider] - Diet: Carb Consistent or DM2 Addtl Provider Instructions: 1. Frequent Falls at home * You will be discharged to [facility] for PT/OT. 2. Left Rib Fractures * Please continue Lidocaine patch and Tylenol 1 gm every 8 hours scheduled. * Please take Tramadol 50 mg every 6 hours for breakthrough pain. * Please use Calcitonin spray daily. 3. Left Flank and Lateral Thigh Hematoma * Please monitor area daily; H/H has been stable. * Please resume home Plavix therapy; pt. does not need to take Aspirin at home. 4. Depression * Home Zoloft dose has been increased to 125 mg daily; consider increasing dose to 150 mg daily if necessary. 5. Please schedule a follow up with PCP in 1-2 weeks. Prescriptions: New acetaminophen [Tylenol Extra Strength] 500 mg Tablet 1,000 mg PO Q8H Qty: 1 RF: 0 docusate sodium 100 mg Capsule 100 mg PO BID PRN (Reason: constipation) Qty: 1 RF: 0 tramadol 50 mg Tablet 50 mg PO Q6H PRN (Reason: moderate pain) 3 Days Qty: 12 RF: 0 lidocaine 5 % Adhesive Patch,Medicated 1 patch transdermal QAM 3 Days Qty: 3 RF: 0 Continued pantoprazole 40 mg tablet,delayed release (DR/EC) 40 mg PO DAILY Qty: 90 RF: 3 folic acid 1 mg tablet 1 mg PO DAILY Qty: 90 RF: 3 calcium carbonate-vitamin D3 [Calcium 600 + D(3)] 600 mg(1,500mg) -400 unit tablet 1 tab PO BID Qty: 180 RF: 3 duloxetine 30 mg capsule,delayed release(DR/EC) 30 mg PO DAILY Qty: 90 RF: 3 albuterol sulfate 2.5 mg /3 mL (0.083 %) solution for nebulization 2.5 mg continuous nebulization BID Qty: 1 RF: 0 atorvastatin 20 mg tablet 20 mg PO DAILY Qty: 90 RF: 0 clopidogrel 75 mg tablet 75 mg PO DAILY Qty: 90 RF: 0 lisinopril 5 mg tablet 5 mg PO DAILY Qty: 90 RF: 0 cholecalciferol (vitamin D3) 2,000 unit capsule 4,000 units PO DAILY Qty: 180 RF: 0 Myrbetriq 50 mg tablet extended release 24 hr 50 mg PO DAILY RF: 0 fluticasone propionate 50 mcg/actuation spray,suspension 2 sprays intranasal .at bedtime Qty: 3 RF: 0 All Day Allergy (cetirizine) 10 mg capsule 10 mg PO HS Qty: 30 RF: 5 Discontinued acetaminophen 325 mg tablet See Rx Instructions .ROUTE .COMPLEX Qty: 60 RF: 10 doxycycline monohydrate 100 mg capsule 100 mg PO DAILY Qty: 30 RF: 0 aspirin 81 mg tablet,delayed release (DR/EC) 81 mg PO DAILY Qty: 2 RF: 0 sertraline 100 mg tablet 100 mg PO DAILY Qty: 90 RF: 0 calcitonin (salmon) 200 unit/actuation spray,non-aerosol See Rx Instructions .ROUTE .COMPLEX Qty: 3.7 RF: 1 ondansetron HCl [Zofran] 4 mg tablet 4 mg PO QID PRN (Reason: nausea and vomiting) Qty: 30 RF: 1 hydrocodone-acetaminophen 7.5-325 mg tablet 1 tab PO Q6H Qty: 60 RF: 0 Stand-Alone Forms: [facility] Discharge Orders: Discharge Order (Routine); Ordered 07/03/19 Ordered By: Kaci Anglin Skilled Items Patient informed of condition?: Yes DNR: Yes Discharge Level of Care: Skilled Communicable Disease: No Discharge Prognosis: Improving Admission Data Admit Date/Time: 06/30/19 19:55 Attending Provider: Santos Porras Admit Provider: Roxanne Knight Primary Care Provider: Slick Reinoso Other Providers: Roxanne Knight Service: Medical Other Interventions: Discharge Summary Assessment (RN) Last Done: 07/03/19 13:42 Pending Studies at Discharge: No DC Date/Time DO NOT enter until pt leaves facility: 07/03/19 14:34 Supervising Physician Co-Signing Physician Notes Attending Attestation and Discharge Note: Pt seen/examined, chart reviewed, discharge care plan d/w CHERISE Anglin. I agree w/ the cohen components of her discharge documentation. 89yo female with recurrent falls over the years s/p fall prior to admission with resulting left-sided rib fractures and traumatic contusion to left posterior hemithorax. Fortunately no internal injuries on real-CT except the rib fractures. Asa/plavix were held in the context of the traumatic contusion and significant ecchymoses but the H/H remained stable during the stay. Patient has h/o prior SVT and required ablation for such years ago. She reported that with her falls she sometimes has palpitations and her vision goes blurry. Thus, will recommend 30-day event monitor to r/o dysrhythmia as the cause of her falls. Patient has frequent throat clearing and reflux. Thus, her throat symptoms may be GERD. Cont PPI. Discharge exam: gen - NAD, obese neck - no JVD heart - RRR, s1 s2, no murmur lungs - minimal bibasilar rales, fine; no wheeze abd - soft NT back - large area of resolving ecchymoses over left side of back; tender same region due to rib fractures ext - trace edema b/l Santos Porras MD
== END 2019-07-03 14:34 | DRG 92 ==
LOC: ED 16:19 → SUATTDRO 19:55 → 3W 19:55

== ENCOUNTER 2020-12-16 14:16 | Inpatient (IN) ==
[2020-12-16] MEDS ORDERED: ONDANSETRON INJ 2 MG/ML 2 ML VIAL IV STA (14:44)
[2020-12-16] MEDS ORDERED: SODIUM CHLORIDE 0.9% 500 ML IV SCH (14:45)
--- NOTE | 2020-12-16 14:49 | Emergency Department Note ---
Impression & Plan Right sided abdominal pain, Gall stones, Vomiting ED Provider Note NAME: JAMARI ARIZMENDI AGE: 89 SEX: F : 1930 ARRIVES VIA: Walk-In INFORMANT: [Patient] ED PROVIDER(S): [Washington Osorio MD] CHIEF COMPLAINT: Abdominal pain HISTORY OF PRESENT ILLNESS: The patient is an 89-year-old female who has had 1 year of intermittent right sided abdominal pain. The pain is worse to eat and does radiate to her back. The pain is severe at times and lasts sometimes for hours. The patient has not had fever. There has been no diarrhea or urinary complaints. No cough or congestion. Today, she did vomit though. The patient spoke with her doctors office, they in turn spoke to surgery. The patient was told to report to the ED for hospitalization. She is going to have a cholecystectomy in the near future. The patient was on a course of Augmentin for diverticulitis. This did not help things. She had outpatient lab work performed just over 10 days ago, no abnorm alities of note. She had a CT scan of her abdomen pelvis which did not show any bowel obstruction or abscess. Gallstones were seen. Of note, her appendix, ovaries and uterus have been removed. REVIEW OF SYSTEMS: See HPI for pertinent positives and negatives. A total of ten systems were reviewed and were otherwise negative. PMHx/PSHx: See Below SOCIAL HISTORY: See Below. PHYSICAL EXAM: GENERAL: Patient is in no acute distress. HEENT: No acute trauma, normocephalic atraumatic, mucous membranes moist, no nasal congestion, no scleral icterus. NECK: No stridor, no adenopathy, no meningismus, trachea is midline. LUNGS: Clear to auscultation bilaterally, no wheeze, no rhonchi, breath sounds equal. HEART: Without murmurs gallops or rubs, regular rate and rhythm. ABDOMEN: Soft, diffusely moderately tender, bowel sounds positive, no hernias, no peritonitis. EXTREMITIES: No cyanosis or edema, full range of motion of all the joints without pain or difficulty, no signs for acute trauma. NEUROLOGIC: Oriented x 3, no acute motor or sensory deficits, no focal weakness. SKIN: No rash, no jaundice, no diaphoresis. DIFFERENTIAL DIAGNOSIS: Infections, diverticulitis, UTI, obstruction, mesenteric ischemia, aortic pathology, inflammatory bowel disease, renal colic, PUD, pancreatitis, biliary pathology, hernia, volvulus, constipation, as well as other pathologies. EMERGENCY DEPARTMENT COURSE/PROCEDURES: ECG: Indication was abdominal pain. The ECG shows a sinus rhythm with some PACs. The rate is 86. There is no ST elevation, no PVCs. The QTc is 469. Continuous Cardiac Monitoring: An order was placed for continuous cardiac monitoring. The monitor shows a rate of 83 with sinus rhythm with some PACs. MEDICAL DECISION MAKING: There is no leukocytosis or concerning anemia. There is a normal platelet count. No significant electrolyte abnormality or kidney failure. No concerning liver enzyme elevation. No evidence for pancreatitis. ECG shows a sinus rhythm, no acute ischemia. Cardiac enzyme testing x1 is not consistent with acute cardiac injury. Covid testing returned negative. Chest x-ray did not show pneumonia or free air. On exam, the patient was not toxic or febrile. She was diffusely tender about the abdomen. There was no peritonitis. Patient was given IV saline, 500 cc. She received IV Zofran for nausea. She received IV Tylenol for pain. I did speak with general surgery about the CT findings and the patient's ongoing issues/abdominal pain for over a year. They were aware the patient was being sent to the ED and would like her hospitalized. She is going to undergo a gallbladder resection in the very near future. She is not doing well as an outpatient and hospitalization, hydration was recommended. I spoke to the patient, I talked with case management. The on-call hospitalist has been consulted. Past Med/Surg History Medical History Asthma Grady's esophagus Benign essential hypertension Cataract Gait disorder GERD (gastroesophageal reflux disease) History of TIA (transient ischemic attack) HLD (hyperlipidemia) HTN (hypertension) Lichen sclerosus et atrophicus Obstructive sleep apnea Osteopenia Thyroid nodule Type II diabetes mellitus Vitamin D deficiency Surgical History H/O cardiac radiofrequency ablation H/O colonoscopy History of appendectomy History of tonsillectomy and adenoidectomy History of total abdominal hysterectomy Status post abdominal hysterectomy and right salpingo-oophorectomy Family History Mother Brain cancer Diabetes Hypertension Father Esophageal cancer Daughter Colorectal cancer Breast cancer Grandmother Heart disease Stroke Other Pure hypercholesterolemia Social History Smoking Status: Never smoker Second Hand Exposure: No; Hx Alcohol Use: No Hx Substance Use: No Preferred Language: [place] Communication Ability: Effective Senior Systems Programmer Required: No Beliefs That Will Affect Care: None marital status: Current Living Situation: Personal Care Facility current occupational status: retired How many Children do You have: 3 Other Information That Helps Us Care for You: No Feels Safe at Home: Yes Safety Concerns: Feels Safe At This Time Childhood Exposure to Second-Hand Smoke: No Seatbelt Use: always Sunscreen Use: Yes Assistive Devices: Glasses and Oxygen - at Night Allergies Allergies Allergy/AdvReac Type Severity Reaction Status Date / Time Nitrate Analogues Allergy Unknown UNKNOWN Verified 12/16/20 16:06 nitrofurantoin Allergy Unknown UNKNOWN Verified 12/16/20 16:06 rofecoxib [From Vioxx] Allergy Unknown Verified 12/16/20 16:06 Quinolones Allergy Verified 12/16/20 16:06 ciprofloxacin [From Cipro] AdvReac Verified 12/16/20 16:06 metformin AdvReac Diarrhea Verified 12/16/20 16:06 Home Meds Home Medications Medication Instructions Recorded Confirmed aspirin [Aspir-81] 81 mg PO QAM 12/16/20 12/16/20 atorvastatin 20 mg PO QAM 12/16/20 12/16/20 calcium carbonate-vitamin D3 1 tab PO QAM 12/16/20 12/16/20 [Calcium 600 + D(3)] cholecalciferol (vitamin D3) 2,000 units PO BID 12/16/20 12/16/20 clopidogrel 75 mg PO QAM 12/16/20 12/16/20 fluticasone propionate 2 spray INTRANASAL QAM 12/16/20 12/16/20 folic acid 2 mg PO QAM 12/16/20 12/16/20 gabapentin 100 mg capsule 200 mg PO HS cap 12/16/20 lisinopril 5 mg PO QAM 12/16/20 12/16/20 pantoprazole 20 mg PO QAM 12/16/20 12/16/20 Previous Rx's Medication Instructions Recorded acetaminophen 500 mg tablet 1,000 mg PO .COMPLEX #180 tab 11/09/19 cetirizine 10 mg tablet See Rx Instructions .ROUTE 12/07/19 .COMPLEX #30 tablet trospium 20 mg tablet See Rx Instructions PO BID #180 tab 09/16/20 sertraline 100 mg tablet See Rx Instructions .ROUTE 10/07/20 .COMPLEX #90 tab bupropion HCl 100 mg tablet,12 hr 100 mg PO DAILY #90 ea 10/20/20 sustained-release Bifidobacterium infantis 4 mg 4 mg PO DAILY #30 cap 12/05/20 capsule tramadol 50 mg tablet 100 mg PO Q12H PRN #60 tab 12/05/20 Results & Data (ED) Vital Signs Vital Signs - 24 hr 12/16/20 14:23 12/16/20 15:26 12/16/20 15:29 Temperature 36.3 C L Temperature Source Temporal Artery Scan Pulse Rate 93 H Pulse Rate [Apical] 88 Pulse Rhythm [Apical] Regular Pulse Strength [Apical] Normal Respiratory Rate 18 24 Respiratory Effort / Characteristics Non-Labored Spontaneous Spontaneous Short of Breath Respiratory Depth Normal Normal Respiratory Pattern Regular Regular Blood Pressure 150/86 H Blood Pressure [Right Arm] 165/70 H Blood Pressure Mean 107 Blood Pressure Mean [Right Arm] 101 Blood Pressure Position Sitting Blood Pressure Position [Right Arm] Sitting Pulse Oximetry 94 97 97 Oxygen Delivery Method Room Air Room Air Room Air Sepsis Recent Fever Within 48 Hours No Sepsis New/Unexplained Change in Mental Status N/A Sepsis Action Taken by Nursing No Action Required Home Medications Current Medication List: was personally reviewed by me Laboratory Data Attestation: I reviewed the patient's lab results. Result diagrams: 12/16/20 15:10 12/16/20 15:10 Lab Results 12/16/20 12/16/20 12/16/20 Range/Units 15:10 15:10 15:10 WBC 10.07 (4.8-10.8) K/uL RBC 4.29 (4.2-5.4) M/uL Hgb 13.2 (12.0-16.0) g/dL Hct 41.1 (37-47) % MCV 95.8 (80-100) fL MCH 30.8 (25-34) pg MCHC 32.1 (32-36) g/dL RDW Std Deviation 48.9 H (36.4-46.3) fL RDW Coeff of Lauren 13.9 (11.5-14.5) % Plt Count 132 (130-400) K/uL MPV 11.6 H (7.4-10.4) fL Immature Gran % (Auto) 0.1 % Neut % (Auto) 74.3 % Lymph % (Auto) 17.3 % [place] % (Auto) 5.9 % Eos % (Auto) 2.2 % Baso % (Auto) 0.2 % Neut # (Auto) 7.49 H (1.4-6.5) K/uL Lymph # (Auto) 1.74 (1.2-3.4) K/uL [place] # (Auto) 0.59 (0.11-0.59) K/uL Eos # (Auto) 0.22 (0-0.5) K/uL Baso # (Auto) 0.02 (0-0.2) K/uL Immature Gran # (Auto) 0.01 (0.00-0.02) K/uL Sodium 141 (136-145) mmol/L Potassium 3.9 (3.5-5.1) mmol/L Chloride 107 (98-107) mmol/L Carbon Dioxide 32 (21-32) mmol/L Anion Gap 2.0 L (3-11) BUN 12 (7-18) mg/dl Creatinine 1.09 (0.6-1.2) mg/dl Est Cr Clr Drug Dosing 41.5 ml/min Est GFR ( Amer) 52.5 Est GFR (Non-Af Amer) 45.3 BUN/Creatinine Ratio 10.6 (10-20) Glucose 115 H (70-99) mg/dl Calcium 9.2 (8.5-10.1) mg/dl Total Bilirubin 0.6 (0.2-1) mg/dl AST 9 L (15-37) U/L ALT 14 (12-78) U/L Alkaline Phosphatase 68 (45-117) U/L Troponin I < 0.015 (0-0.045) ng/ml Total Protein 7.3 (6.4-8.2) gm/dl Albumin 3.6 (3.4-5.0) gm/dl Globulin 3.7 (2.5-4.0) gm/dl Albumin/Globulin Ratio 1.0 (0.9-2) Lipase 86 (73-393) U/L COVID-19 Eval [facility] SARS-CoV-2, RNA, NAAT (NEGATIVE) 12/16/20 Range/Units 15:10 WBC (4.8-10.8) K/uL RBC (4.2-5.4) M/uL Hgb (12.0-16.0) g/dL Hct (37-47) % MCV (80-100) fL MCH (25-34) pg MCHC (32-36) g/dL RDW Std Deviation (36.4-46.3) fL RDW Coeff of Lauren (11.5-14.5) % Plt Count (130-400) K/uL MPV (7.4-10.4) fL Immature Gran % (Auto) % Neut % (Auto) % Lymph % (Auto) % [place] % (Auto) % Eos % (Auto) % Baso % (Auto) % Neut # (Auto) (1.4-6.5) K/uL Lymph # (Auto) (1.2-3.4) K/uL [place] # (Auto) (0.11-0.59) K/uL Eos # (Auto) (0-0.5) K/uL Baso # (Auto) (0-0.2) K/uL Immature Gran # (Auto) (0.00-0.02) K/uL Sodium (136-145) mmol/L Potassium (3.5-5.1) mmol/L Chloride (98-107) mmol/L Carbon Dioxide (21-32) mmol/L Anion Gap (3-11) BUN (7-18) mg/dl Creatinine (0.6-1.2) mg/dl Est Cr Clr Drug Dosing ml/min Est GFR ( Amer) Est GFR (Non-Af Amer) BUN/Creatinine Ratio (10-20) Glucose (70-99) mg/dl Calcium (8.5-10.1) mg/dl Total Bilirubin (0.2-1) mg/dl AST (15-37) U/L ALT (12-78) U/L Alkaline Phosphatase (45-117) U/L Troponin I (0-0.045) ng/ml Total Protein (6.4-8.2) gm/dl Albumin (3.4-5.0) gm/dl Globulin (2.5-4.0) gm/dl Albumin/Globulin Ratio (0.9-2) Lipase (73-393) U/L COVID-19 Eval Order SARS-CoV-2, RNA, NAAT NEGATIVE (NEGATIVE) Administered Medications Acetaminophen (Acetaminophen 500 Mg Tab) 1,000 mg PO Q8 JEF Stop: 01/15/21 21:59 Last Admin: 12/16/20 20:55 Dose: 1,000 mg Documented by: [id number] Albuterol (Albut/Ipratrop 3mg/0.5mg Neb 3 Ml Vial) 3 ml NEB Q4R JEF Stop: 01/15/21 18:59 Last Admin: 12/16/20 19:38 Dose: 3 ml Documented by: [id number] Gabapentin (Gabapentin 100 Mg Cap) 200 mg PO HS JEF Stop: 01/15/21 20:59 Last Admin: 12/16/20 20:55 Dose: 200 mg Documented by: [id number] Piperacillin Sod/Tazobactam (Sod 4.5 gm/ Dextrose) 120 mls @ 30 mls/hr IV Q8H JEF; Protocol Stop: 12/26/20 19:59 Last Admin: 12/16/20 20:48 Dose: 30 mls/hr Documented by: [id number] Famotidine 20 mg/ Syringe 5 mls @ 2.5 mls/min IV BID JEF Stop: 01/15/21 20:59 Last Admin: 12/16/20 20:47 Dose: 2.5 mls/min Documented by: [id number] Insulin Aspart (Insulin Aspart 100 Units/Ml 3 Ml Pen) 0 units SC ACHS JEF Stop: 01/15/21 18:56 Last Admin: 12/16/20 21:23 Dose: Not Given Documented by: [id number] Admin: 12/16/20 21:22 Dose: Not Given Documented by: [id number] Ketorolac Tromethamine (Ketorolac Tromethamine 15 Mg/Ml Vial) 15 mg IV Q6H PRN; Protocol PRN Reason: Pain Stop: 12/21/20 16:05 Last Admin: 12/16/20 16:55 Dose: 15 mg Documented by: [id number] Discontinued Medications Acetaminophen (Acetaminophen 1000 Mg/100 Ml Iv) 1,000 mg IV NOW STA Stop: 12/16/20 15:37 Last Admin: 12/16/20 15:39 Dose: 1,000 mg Documented by: [id number] Sodium Chloride (Nss) 500 mls @ 999 mls/hr IV .Q31M JEF Stop: 12/16/20 15:15 Last Infusion: 12/16/20 19:09 Dose: 0 mls/hr Documented by: [id number] Admin: 12/16/20 16:09 Dose: 999 mls/hr Documented by: [id number] Piperacillin Sod/Tazobactam Sod (Zosyn) 4.5 gm in 120 mls @ 240 mls/hr IV NOW STA; Protocol Stop: 12/16/20 17:03 Last Infusion: 12/16/20 19:10 Dose: 0 mls/hr Documented by: [id number] Admin: 12/16/20 16:55 Dose: 240 mls/hr Documented by: [id number] Furosemide 20 mg/ Syringe 2 mls @ 4 mls/min IV NOW STA Stop: 12/16/20 19:08 Last Admin: 12/16/20 20:47 Dose: 4 mls/min Documented by: [id number] Ondansetron HCl (Ondansetron Inj 2 Mg/Ml 2 Ml Vial) 4 mg IV NOW STA Stop: 12/16/20 14:45 Last Admin: 12/16/20 16:09 Dose: 4 mg Documented by: [id number] Imaging Data Radiologist's Impression: XR chest 1V portable CLINICAL HISTORY: Abdominal pain. COMPARISON STUDY: Chest radiograph and chest CT June 30, 2019. FINDINGS: Cardiomegaly is unchanged. Interstitial thickening is unchanged. This is likely chronic. There is no evidence for pulmonary edema. There is no pneumothorax or pleural effusion. There is no consolidation to suggest pneumonia. IMPRESSION: No significant change in appearance of the chest. Interstitial thickening which is likely chronic. Mild interstitial pulmonary edema could appear similar although is considered less likely. Discharge Plan Visit Data Chief Complaint: Abdominal Pain Stated Complaint: PAIN IN RIGHT SIDE ED Provider: Washington Osorio Discharge Problem: Right sided abdominal pain, Gall stones, Vomiting Patient Disposition: Admitted As Inpatient Condition: Fair Discharge Instructions Interventions: ED Discharge Assessment Last Done: 12/16/20 17:09 Discharge Problem: Vomiting Qualifiers: Vomiting type: unspecified Vomiting Intractability: non-intractable Nausea presence: with nausea Qualified Code(s): R11.2 - Nausea with vomiting, unspecified
--- NOTE | 2020-12-16 15:00 | History & Physical Report ---
Date of Service December 16, 2020 Assessment & Plan (1) Chronic cholecystitis: - Admit to med surg - General surgery consulted - get HIDA scan tonight, avoid narcotics prior to scan, can administer toradol IV prn and tylenol IV for pain relief - CT abdomen reviewed from 12/14 - No leukocytosis, afebrile - Pt had recently finished a 10 day course of Augmentin that was prescribed as outpatient for possible diverticulitis, but likely that this was never diverticulitis, and instead was the gallbladder all along- IV zosyn for now - COVID-19 negative - CXR reviewed showing possible pulmonary edema, will hold on fluids and give dose of IV lasix x 1 to see if improves respiratory status. - Continue antiemetics - EKG ordered for preop eval - famotidine 20 mg IV BID (2) HTN (hypertension): - BP elevated on arrival at 160s/70s. likely partially elevated due to amount of pain, attempt to obtain better pain control - Continue lisinopril 5 mg QAM (3) HLD (hyperlipidemia): - Continue atorvastatin 20 mg daily (4) History of TIA (transient ischemic attack): - HOLD plavix - await decision by general surgery when they plan to take pt to the OR, unlikely that the patient should be held 5 days for plavix to wear off. - Allow baby aspirin (5) Type II diabetes mellitus: - ISS with accuchecks achs and q6h while npo - Check A1C with am labs (6) Asthma: - Hx of such, continue inhalers, duonebs Q4 and Q2h prn for shortness of breath, incentive spirometry/flutter - CXR reviewed as above, ? if she is acutally a bit wet ? 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 - Check CT neck and lumbar spine to r/o any fractures s/p fall with complaints of pain. (10) Morbid obesity: - BMI of 38.7, diet and exercise to be encouraged (11) Depression: - Continue zoloft, cymbalta and wellbutrin - Feels more isolated in her apartment at [place] since covid started and not allowed to have as much social interaction with others. Consider counseling. Encourage phone calls with family. (12) Obstructive sleep apnea: - Hx of such, wears 2 L O2 HS, does not use a cpap. DVT ppx: scds, hold chemical anticoagulation in the setting of possible surgery Code: DNR/DNI Dispo: From [place], likely to remain in the hospital over the weekend. History of Present Illness Primary Care Provider: Slick Reinoso MD This is an 89 yo F with PMHx of chronic cholecystitis, HTN, HLD, history of TIA, DM II, vitamin D deficiency, thyroid nodule, RACHEL, neuropathy, Grady's esophagus, GERD who presents to the ER after communication with her PCP in regards to worsening abdominal complaints after CT on 12/14/19 which revealed cholelithiasis, including nausea, vomiting, worse with consumption of fatty foods so she had been avoiding these types of foods for months now. Her symptoms have worsened within the last 3 days. Pain is located in the RUQ, rated 8/10, worse with sitting up, alleviated with laying flat. She has been nauseous and vomited once this morning, but she cannot recall if she had eaten breakfast or had taken her morning medications before or after vomiting. She denies any fevers, admits to having intermittent chills. Pt recently completed a 10 day course of Augmentin that was given to her by PCP for possible diverticulitis, because of the abdominal symptoms, but now it appears that this may not have been from diverticulitis at all, instead was from the gallbladder. Pt wears 2L O2 HS typically, but none during the day. Denies any recent sick contacts or known COVID-19 positive contacts. She lives at [place] in her own apartment. Her family knows about her being in the hospital as she tells me she has talked to them today. Pt had a CT of the abdomen on 12/14/2020 which showed chronic cholelithiasis, no cholecystitis, and has been followed by her PCP, Dr. Reinoso, who discussed with general surgery, Dr. Sanchez about taking the gallbladder out. Patient was hesitant to even come to the hospital before knowing that she would be able to have this done due to her concern regarding anesthesia, as well as her age and other comorbidities. She reports that she cannot handle the discomfort in her abdomen and go on like this much longer, so is agreeable to having surgery to improve the quality of her life. Allergies Allergy/AdvReac Type Severity Reaction Status Date / Time Nitrate Analogues Allergy Unknown UNKNOWN Verified 12/16/20 16:06 nitrofurantoin Allergy Unknown UNKNOWN Verified 12/16/20 16:06 rofecoxib [From Vioxx] Allergy Unknown Verified 12/16/20 16:06 Quinolones Allergy Verified 12/16/20 16:06 ciprofloxacin [From Cipro] AdvReac Verified 12/16/20 16:06 metformin AdvReac Diarrhea Verified 12/16/20 16:06 Home Medications Medication Instructions Recorded Confirmed Type acetaminophen 500 mg tablet 1,000 mg PO .COMPLEX #180 tab 11/09/19 12/16/20 Rx cetirizine 10 mg tablet See Rx Instructions .ROUTE 12/07/19 12/16/20 Rx .COMPLEX #30 tablet trospium 20 mg tablet See Rx Instructions PO BID #180 tab 09/16/20 12/16/20 Rx sertraline 100 mg tablet See Rx Instructions .ROUTE 10/07/20 12/16/20 Rx .COMPLEX #90 tab bupropion HCl 100 mg tablet,12 hr 100 mg PO DAILY #90 ea 10/20/20 12/16/20 Rx sustained-release Bifidobacterium infantis 4 mg 4 mg PO DAILY #30 cap 12/05/20 12/16/20 Rx capsule tramadol 50 mg tablet 100 mg PO Q12H PRN #60 tab 12/05/20 12/16/20 Rx aspirin [Aspir-81] 81 mg PO QAM 12/16/20 12/16/20 History atorvastatin 20 mg PO QAM 12/16/20 12/16/20 History calcium carbonate-vitamin D3 1 tab PO QAM 12/16/20 12/16/20 History [Calcium 600 + D(3)] cholecalciferol (vitamin D3) 2,000 units PO BID 12/16/20 12/16/20 History clopidogrel 75 mg PO QAM 12/16/20 12/16/20 History fluticasone propionate 2 spray INTRANASAL QAM 12/16/20 12/16/20 History folic acid 2 mg PO QAM 12/16/20 12/16/20 History gabapentin 100 mg capsule 200 mg PO HS cap 12/16/20 History lisinopril 5 mg PO QAM 12/16/20 12/16/20 History pantoprazole 20 mg PO QAM 12/16/20 12/16/20 History Past Med/Surg History Medical History Asthma Grady's esophagus Benign essential hypertension Cataract Gait disorder GERD (gastroesophageal reflux disease) History of TIA (transient ischemic attack) HLD (hyperlipidemia) HTN (hypertension) Lichen sclerosus et atrophicus Obstructive sleep apnea Osteopenia Thyroid nodule Type II diabetes mellitus Vitamin D deficiency Surgical History H/O cardiac radiofrequency ablation H/O colonoscopy History of appendectomy History of tonsillectomy and adenoidectomy History of total abdominal hysterectomy Status post abdominal hysterectomy and right salpingo-oophorectomy Family History Mother Brain cancer Diabetes Hypertension Father Esophageal cancer Daughter Colorectal cancer Breast cancer Grandmother Heart disease Stroke Other Pure hypercholesterolemia Social History Smoking Status: Never smoker Second Hand Exposure: No; Hx Alcohol Use: No Hx Substance Use: No Preferred Language: Kittitian Communication Ability: Effective [employer] Supervisor Required: No Beliefs That Will Affect Care: None marital status: Current Living Situation: Personal Care Facility current occupational status: retired How many Children do You have: 3 Other Information That Helps Us Care for You: No Feels Safe at Home: Yes Safety Concerns: Feels Safe At This Time Childhood Exposure to Second-Hand Smoke: No Seatbelt Use: always Sunscreen Use: Yes Assistive Devices: Oxygen - at Night and Walker Review of Systems Review of Systems: Constitutional: No fever, sweats, intermittent chills. Eyes: No diplopia, no worsening or blurred vision ENT: normal hearing, no trouble swallowing Respiratory: No cough, sputum, dyspnea at rest or on exertion Cardiovascular: No chest pain, tightness or palpitations Abdomen: No pain, nausea, vomiting, diarrhea or constipation Musculoskeletal: No joint pain, calf pain, swelling Neurologic: No weakness, numbness/tingling, or balance problems Psychiatric: No anxiety or depression Skin: No rash or itch Physical Exam Physical Exam: General: awake, alert, moderate distress Head: Normocephalic, atraumatic Neck: No ENT: PERRL, EOMI, wearing glasses, no pharyngeal exudate, mucous membranes dry Chest: + appears short of breath with sitting forward, +coarse rales throughout, diminished breath sounds at bases, on room air with o2 sats at 90% and placed on 2L with improvement to 95%, inspiratory wheeze, no accessory muscle use. Cardiac: Regular rate and rhythm, murmur, no JVD, normal peripheral pulses, good capillary refill Abdominal: NABS x 4 quadrants, soft, nondistended, + severe pain with palpation in the RUQ and some in the RLQ, no rebound or guarding, positive Murpheys sign Back: Pain over right paraspinal region, R trochanteric bursa region Extremities: Normal inspection, no peripheral edema or erythema, calfs nontender to palpation Psych: Normal mood and affect Neuro: AAO x 3, strength intact bilaterally and rated 5/5, no motor deficits, speech is clear, no peripheral sensory deficits Results & Data Results & Data ([facility]) Vital Signs (Past 12 Hours) Vital Signs Temp Pulse Resp BP Pulse Ox 12/16/20 14:23 36.3 C L 93 H 18 150/[address] abd pelvis oral con only CLINICAL HISTORY: K57.92 - Diverticulitis of intestine, part unspecified, without perforation or abscess without bleeding COMPARISON STUDY: June 30, 2019 FINDINGS: The patient was scanned following administration of dilute oral contrast. No intravenous contrast was administered. A dose reduction technique was utilized according the principles of ALARA Images through the lung bases reveal subpleural reticulation. There are dependent right basilar opacities statistically atelectatic. There is mild lower lobe cylindrical bronchiectasis. There is a stable 7 mm left lower lobe pul monary nodule. No hepatic masses are visualized in this noncontrast study. There is cholelithiasis. No splenic lesions are visualized. No pancreatic lesions are identified on this noncontrast study. There are no adrenal masses. There is no hydronephrosis. No renal, ureteral, or bladder calculi are visualized. There is a subtle nonspecific 9 mm hyperdense focus within the right renal cortex. There are no transition zones to indicate bowel obstruction. There is colonic diverticulosis. There is no evidence of acute diverticulitis. There is a moderate colonic fecal load. There is no evidence of acute appendicitis. There is no ascites. There is no free air. There is no evidence of double aortic aneurysm. There is no pathologic adenopathy. The patient is status post a prior hysterectomy. There are old rib fractures. IMPRESSION: 1. No evidence of bowel obstruction. No evidence of free air 2. Colonic diverticulosis. No evidence of acute diverticulitis 3. No evidence of acute appendicitis 4. Cholelithiasis 5. Stable solid 7 mm left lower lobe pulmonary nodule XR chest 1V portable CLINICAL HISTORY: Abdominal pain. COMPARISON STUDY: Chest radiograph and chest CT June 30, 2019. FINDINGS: Cardiomegaly is unchanged. Interstitial thickening is unchanged. This is likely chronic. There is no evidence for pulmonary edema. There is no pneumothorax or pleural effusion. There is no consolidation to suggest pneumonia. IMPRESSION: No significant change in appearance of the chest. Interstitial thickening which is likely chronic. Mild interstitial pulmonary edema could appear similar although is considered less likely. Code Status & VTE Plan Code Status DNR/DNI - discussed with the patient at bedside Supervising Physician Co-Signing Physician Notes Attending Attestation and Admission Note: Pt seen/examined, chart reviewed, care plan d/w CHERISE Arguello. I agree w/ the cohen components of her documentation. 89yo female with HTN, h/o TIA, T2DM, RACHEL with nocturnal NC O2 use - presents with possible biliary colic/symptomatic gallstones. Oddly, when I asked the patient to describe a typical pain spell, she repeatedly points to the lateral proximal hip as the location of the pain when she does have pain episodes. She further states the pain then radiates to the right groin, and then ultimately to the right lower back pain. The pain is never in the central or upper abdomen. I asked her the latter question multiple times and again she denied that she has upper abdominal pain with eating (???). This is despite what has been written by multiple other providers. Upon further questioning she states that sometimes the right leg/groin pain radiates anteriorly down the leg towards the right knee. She also mentions ongoing left-sided posterior neck pain "that started when I fell around [place]." She was traveling with family out of town when this happened and was evaluated at the hospital in [facility] - was told her imaging was negative but doesn't recall specific details. Any time she moved in the bed she became visibly dyspneic. She states "it's been like this a while.". PMH/PSH/allergies/meds/sochx/famhx - reviewed VSS, afebrile gen - dyspneic with minimal movement in bed, audible wheezing neck - JVD present heart - RRR, s1 s2 lungs - bibasilar rales, end-exp wheezes abd - soft NT ND BS+; no HSM ext - <1+ edema b/l musculo - tender over left paraspinal region posterior neck to palpation; no tenderness over t-spine or l-spine in the midline; tender right paraspinal region lumbar area to palpation; VERY TENDER over right trochanteric bursal a gigi; pain reproduced over right hip with forced adduction neuro - strength 5/5 x both legs labs reviewed recent CT abd/pelvis reviewed cxr reviewed A/P: 1. gallstones - no radiographic evidence of acute cholecystitis. WBC wnl. LFTs wnl. Her history she provided me is not c/w biliary colic. However, other providers got a different story from patient and that story was more suggestive of symptomatic gallstones. HIDA ordered. Gen surg following. Await HIDA. 2. right lateral hip pain - could be radicular in nature from DJD L-spine and/or trochanteric bursitis. Dedicated L-spine CT. Treat pain. If bursal pain continues over time consider steroid injection. 3. recurrent falls, neck pain - c-spine CT, r/o fracture. 4. dyspnea, NC O2 requirement, adventitious sounds on exam - lung cuts on recent CT abd/pelvis shows bronchiectasis and subpleural reticulation. Could have chronic lung disease. Could have mild pulmonary edema. Reported h/o asthma in her history. Lasix 20mg x [address] trial[address] Consider [address] CT chest imaging. COVID neg. Santos Porras MD PG Care Time/CCT Total # of Minutes Spent Total Time Spent with Patient: Total time spent is greater than 50% in coordination of care (as documented) at patient's floor/unit and/or counseling patient: Coding Level of Care Code 73642 Initial Inpt Care Lvl 3 Diagnoses Chronic cholecystitis K81.1 HTN (hypertension) I10 HLD (hyperlipidemia) E78.5 History of TIA (transient ischemic attack) Z86.73 Type II diabetes mellitus E11.9 Asthma J45.909 Vitamin D deficiency E55.9 Grady's esophagus K22.70 Diabetic neuropathy E11.40 Morbid obesity E66.01 Depression F32.9 Obstructive sleep apnea G47.33
--- NOTE | 2020-12-16 15:25 | Surgery Consultation ---
Date of Consultation December 16, 2020 Assessment & Plan (1) Chronic cholecystitis: This is an 89y F with a PMH of DM, depression, MO, GERD, HTN, HLD, RACHEL, and history of falls who presented to the [facility] ED on 12/16/20 with complaints of abdominal pain associated with n/v. Patient reports intermittent episodes of abdominal pain occurring since her last visit with us in July. She states this recent episode started about 2 days ago and has been the most severe. An outpatient CT was performed on 12/14 revealing + cholelithiasis. Today she had a telehealth appt with her PCP to discuss her pain and review CT scan. Decision was made for patient to into the ER for further evaluation due to worsening abdominal symptoms. Today WBC 10 and chemistry and LFTs are pending. On examination patient is tender in the right sided abdomen, otherwise is soft and non distended. We will obtain a HIDA scan for further evaluation. We will want patient's Plavix to be held (she believes she last took it this AM). Appreciate hospitalists admitting the patient. We will follow patient closely and have to determine the best timing to proceed with laparoscopic cholecystectomy given her being on plavix. History of Present Illness History of Present Illness This is an 89y F with a PMH of DM, depression, MO, GERD, HTN, HLD, RACHEL, and history of falls who presented to the [facility] ED on 12/16/20 with complaints of abdominal pain. Of note the patient was seen in our surgery clinic last July after a RUQ US revealed cholelithiasis and a possible Xiong's sign. Likely that she has biliary colic based on description of her symptoms and plan was made to continue to monitor her at the time due to age and comorbidities with close follow up. Patient was suppose to return in August, but did not. Patient reports having intermittent episodes of abdominal pain that radiates towards her back and states that it can worsen based on certain food intake. She reports over the last two days her pain has become more severe. A CT a/p was performed as an outpatient on 12/14 which revealed cholelithiasis. She had a telehealth visit with her PCP today to discuss her symptoms and after discussion with surgery plan was made for patient to come into the ER for further evaluation. Patient states she noticed some chills with these episodes and did have a bout of emesis today. She denies any fevers, change in bowel habits, or new shortness of breath or chest pain from baseline. Her past abdominal surgical history includes a hysterectomy and appendectomy. Dr. Sanchez-patient with recurrent biliary colic associated with some nausea and edition to the back Her HIDA scan shows relatively rapid filling of the gallbladder. My plan would be to keep her off the Plavix 2 to 3 days And then proceed with laparoscopic cholecystectomy possibly on Saturday. I did discuss this with her daughter, Luisa She is in agreement. We will give her clear liquids for now and possibly advance her diet tomorrow. Allergies Allergy/AdvReac Type Severity Reaction Status Date / Time Nitrate Analogues Allergy Unknown UNKNOWN Verified 12/16/20 16:06 nitrofurantoin Allergy Unknown UNKNOWN Verified 12/16/20 16:06 rofecoxib [From Vioxx] Allergy Unknown Verified 12/16/20 16:06 Quinolones Allergy Verified 12/16/20 16:06 ciprofloxacin [From Cipro] AdvReac Verified 12/16/20 16:06 metformin AdvReac Diarrhea Verified 12/16/20 16:06 Home Medications Medication Instructions Recorded Confirmed Type acetaminophen 500 mg tablet 1,000 mg PO .COMPLEX #180 tab 11/09/19 12/16/20 Rx cetirizine 10 mg tablet See Rx Instructions .ROUTE 12/07/19 12/16/20 Rx .COMPLEX #30 tablet trospium 20 mg tablet See Rx Instructions PO BID #180 tab 09/16/20 12/16/20 Rx sertraline 100 mg tablet See Rx Instructions .ROUTE 10/07/20 12/16/20 Rx .COMPLEX #90 tab bupropion HCl 100 mg tablet,12 hr 100 mg PO DAILY #90 ea 10/20/20 12/16/20 Rx sustained-release Bifidobacterium infantis 4 mg 4 mg PO DAILY #30 cap 12/05/20 12/16/20 Rx capsule tramadol 50 mg tablet 100 mg PO Q12H PRN #60 tab 12/05/20 12/16/20 Rx aspirin [Aspir-81] 81 mg PO QAM 12/16/20 12/16/20 History atorvastatin 20 mg PO QAM 12/16/20 12/16/20 History calcium carbonate-vitamin D3 1 tab PO QAM 12/16/20 12/16/20 History [Calcium 600 + D(3)] cholecalciferol (vitamin D3) 2,000 units PO BID 12/16/20 12/16/20 History clopidogrel 75 mg PO QAM 12/16/20 12/16/20 History duloxetine 40 mg PO QAM 12/16/20 12/16/20 History fluticasone propionate 2 spray INTRANASAL QAM 12/16/20 12/16/20 History folic acid 2 mg PO QAM 12/16/20 12/16/20 History gabapentin See Rx Instructions .ROUTE .COMPLEX 12/16/20 12/16/20 History lisinopril 5 mg PO QAM 12/16/20 12/16/20 History pantoprazole 20 mg PO QAM 12/16/20 12/16/20 History Patient History Medical History Asthma Grady's esophagus Benign essential hypertension Cataract Diabetes mellitus Gait disorder GERD (gastroesophageal reflux disease) History of TIA (transient ischemic attack) HLD (hyperlipidemia) HTN (hypertension) Lichen sclerosus et atrophicus Neuropathy Obstructive sleep apnea Osteopenia Thyroid nodule Type II diabetes mellitus Vitamin D deficiency Surgical History H/O cardiac radiofrequency ablation H/O colonoscopy History of appendectomy History of tonsillectomy and adenoidectomy History of total abdominal hysterectomy Status post abdominal hysterectomy and right salpingo-oophorectomy Family History Mother Brain cancer Diabetes Hypertension Father Esophageal cancer Daughter Colorectal cancer Breast cancer Grandmother Heart disease Stroke Other Pure hypercholesterolemia Social History Smoking Status: Never smoker Second Hand Exposure: No; Hx Alcohol Use: No Hx Substance Use: No Preferred Language: Jordanian Communication Ability: Effective Senior Web Engineer Required: No Beliefs That Will Affect Care: None marital status: Current Living Situation: Personal Care Facility current occupational status: retired How many Children do You have: 3 Other Information That Helps Us Care for You: No Feels Safe at Home: Yes Safety Concerns: Feels Safe At This Time Childhood Exposure to Second-Hand Smoke: No Seatbelt Use: always Sunscreen Use: Yes Assistive Devices: CPAP, Glasses, Oxygen - at Night and Walker Review of Systems Constitutional: + chills; no fever Respiratory: no new shortness of breath Cardiovascular: no chest pain Gastrointestinal: + abdominal pain (right sided abdominal pain), + nausea and + vomiting; no change in bowel habits Physical Exam Physical Exam: awake Constitutional: well developed and well nourished; no acute distress Respiratory: normal respiratory effort Gastrointestinal (Abdomen): Inspection/Auscultation: abdomen not distended Percussion/Palpation: + abdomen tender (ttp right sided abdomen) and abdomen soft Results & Data ([facility]) Vital Signs (Past 12 Hours) Vital Signs Temp Pulse Resp BP Pulse Ox 12/16/20 14:23 36.3 C L 93 H 18 150/[address] abd pelvis oral con only CLINICAL HISTORY: K57.92 - Diverticulitis of intestine, part unspecified, without perforation or abscess without bleeding COMPARISON STUDY: June 30, 2019 FINDINGS: The patient was scanned following administration of dilute oral contrast. No intravenous contrast was administered. A dose reduction technique was utilized according the principles of ALARA Images through the lung bases reveal subpleural reticulation. There are depe ndent right basilar opacities statistically atelectatic. There is mild lower lobe cylindrical bronchiectasis. There is a stable 7 mm left lower lobe pulmonary nodule. No hepatic masses are visualized in this noncontrast study. There is cholelithiasis. No splenic lesions are visualized. No pancreatic lesions are identified on this noncontrast study. There are no adrenal masses. There is no hydronephrosis. No renal, ureteral, or bladder calculi are visualized. There is a subtle nonspecific 9 mm hyperdense focus within the right renal cortex. There are no transition zones to indicate bowel obstruction. There is colonic diverticulosis. There is no evidence of acute diverticulitis. There is a moderate colonic fecal load. There is no evidence of acute appendicitis. There is no ascites. There is no free air. There is no evidence of double aortic aneurysm. There is no pathologic adenopathy. The patient is status post a prior hysterectomy. There are old rib fractures. IMPRESSION: 1. No evidence of bowel obstruction. No evidence of free air 2. Colonic diverticulosis. No evidence of acute diverticulitis 3. No evidence of acute appendicitis 4. Cholelithiasis 5. Stable solid 7 mm left lower lobe pulmonary nodule ACT 112: Negative or not required by law. Electronically signed by: Billy Collier M.D. 12/14/2020 2:44 PM PG Care Time/CCT Total # of Minutes Spent Total Time Spent with Patient: Total time spent is greater than 50% in coordination of care (as documented) at patient's floor/unit and/or counseling patient: Coding Level of Care Code 27920 Initial Inpt Care Lvl 1 Diagnoses Chronic cholecystitis K81.1
[2020-12-16 15:28] LABS: Basophils # (auto) 0.02 K/uL (0-0.2); Basophils % (auto) 0.2 %; Eosinophils # (auto) 0.22 K/uL (0-0.5); Eosinophils % (auto) 2.2 %; Hematocrit (blood only) 41.1 % (37-47); Hemoglobin 13.2 g/dL (12.0-16.0); Immature Granulocytes # (auto) 0.01 K/uL (0.00-0.02); Immature Granulocytes % (auto) 0.1 %; Lymphocytes # (auto) 1.74 K/uL (1.2-3.4); Lymphocytes % (auto) 17.3 %; Mean Corpuscular Hemoglobin 30.8 pg (25-34); Mean Corpuscular Hgb Conc 32.1 g/dL (32-36); Mean Corpuscular Volume 95.8 fL (80-100); Mean Platelet Volume 11.6 fL (7.4-10.4); Monocytes # (auto) 0.59 K/uL (0.11-0.59); Monocytes % (auto) 5.9 %; Neutrophils # (auto) 7.49 K/uL (1.4-6.5); Neutrophils % (auto) 74.3 %; Platelet Count 132 K/uL (130-400); RDW Coefficient of Variation 13.9 % (11.5-14.5); RDW Standard Deviation 48.9 fL (36.4-46.3); Red Blood Count 4.29 M/uL (4.2-5.4); White Blood Count 10.07 K/uL (4.8-10.8)
[2020-12-16] MEDS ORDERED: ACETAMINOPHEN 1000 MG/100 ML IV IV STA (15:36)
[2020-12-16 15:47] LABS: Alanine Aminotransferase 14 U/L (12-78); Albumin Level 3.6 gm/dl (3.4-5.0); Aspartate Aminotransferase 9 U/L (15-37); BUN Creatinine Ratio 10.6 (10-20); Blood Urea Nitrogen 12 mg/dl (7-18); Calcium 9.2 mg/dl (8.5-10.1); Carbon Dioxide 32 mmol/L (21-32); Chloride 107 mmol/L (98-107); Creatinine Clr Calc Pharmacy 41.5 ml/min; Est GFR (African American) 52.5; Est GFR (Non-African American) 45.3; Glucose 115 mg/dl (70-99); Lipase 86 U/L (73-393); Potassium 3.9 mmol/L (3.5-5.1); Sodium 141 mmol/L (136-145)
[2020-12-16 15:52] LABS: Alkaline Phosphatase 68 U/L (45-117); Bilirubin,Total 0.6 mg/dl (0.2-1); Globulin 3.7 gm/dl (2.5-4.0); Total Protein 7.3 gm/dl (6.4-8.2); Troponin I < 0.015 ng/ml (0-0.045)
--- NOTE | 2020-12-16 16:01 | XRay Report ---
XR chest 1V portable CLINICAL HISTORY: Abdominal pain. COMPARISON STUDY: Chest radiograph and chest CT June 30, 2019. FINDINGS: Cardiomegaly is unchanged. Interstitial thickening is unchanged. This is likely chronic. Th ere is no evidence for pulmonary edema. There is no pneumothorax or pleural effusion. There is no con solidation to suggest pneumonia. IMPRESSION: No significant change in appearance of the chest. Interstitial thickening which is likel y chronic. Mild interstitial pulmonary edema could appear similar although is considered less likely. ACT 112: Negative or not required by law. Electronically signed by: Wayne Donato M.D. 12/16/2020 4:00 PM
[2020-12-16] MEDS ORDERED: PIPERACILL/TAZOBAC CONSULT ACTIVE PRN (16:15)
[2020-12-16] MEDS ORDERED: PIPERACILLIN/TAZOBACTAM 4.5 GM/120 ML BAG IV STA (16:34)
[2020-12-16] MEDS ORDERED: LACTATED RINGER'S 1,000 ML IV SCH (16:45)
[2020-12-16] MEDS: KETOROLAC TROMETHAMINE 15 MG/ML VIAL IV PRN (16:55)
--- NOTE | 2020-12-16 17:34 | CT Scan Report ---
CT OF THE CERVICAL SPINE WITHOUT CONTRAST CLINICAL HISTORY: neck pain, s/p fall COMPARISON STUDY: Cervical spine CT November 14, 2015. TECHNIQUE: Helical axial images of the cervical spine were obtained without IV contrast. Sagittal a nd coronal reconstructions were viewed. Automated exposure control was utilized for the study. A do se lowering technique was utilized adhering to the principles of ALARA. FINDINGS: Alignment of the cervical spine is anatomic. Vertebral body heights are maintained. No acut e cervical spine fracture or subluxation is present. There is no prevertebral edema. Facet joints are intact. Moderate to severe multilevel facet arthrosis is present. There is moderate multilevel disc space narrowing and osteophytosis. IMPRESSION: No acute cervical spine fracture or subluxation. ACT 112: Negative or not required by law. Electronically signed by: Wayne Donato M.D. 12/16/2020 5:33 PM
--- NOTE | 2020-12-16 17:58 | CT Scan Report ---
CT OF THE LUMBAR SPINE CLINICAL HISTORY: lumbar spine pain s/p fall COMPARISON STUDY: Lumbar spine CT February 09, 2014. TECHNIQUE: Helical axial images of the lumbar spine were obtained. Sagittal and coronal reconstruct ions were viewed. Automated exposure control was utilized for the study. A dose lowering technique was utilized adhering to the principles of ALARA. FINDINGS: There is mild leftward curvature of the lumbar spine. Vertebral body heights are maintained . There is no acute fracture. There is no suspicious osseous lesion. A sclerotic lesion within L1 is unchanged. There is moderate multilevel degenerative disc disease and severe multilevel facet arthros is. Central canal and neural foramen are suboptimally assessed by CT. Sacroiliac joints are intact. P aravertebral soft tissues are unremarkable. IMPRESSION: 1. No acute lumbar spine fracture or subluxation. 2. Severe multilevel facet arthrosis. Moderate multilevel degenerative disc disease. ACT 112: Negative or not required by law. Electronically signed by: Wayne Donato M.D. 12/16/2020 5:57 PM
--- NOTE | 2020-12-16 18:43 | Nuclear Medicine Report ---
NUCLEAR MEDICINE HEPATOBILIARY SCAN CLINICAL HISTORY: Abdominal pain. Cholelithiasis. Chronic cholecystitis. COMPARISON: CT of the abdomen and pelvis April or 06/06/2021. Right upper quadrant ultrasound [facility] 2019. TECHNIQUE: 5 mCi of technetium 99m Choletec IV was injected at 5:30 PM on December 16, 2020. Immedia tely following injection, imaging of the abdomen was carried out for 60 minutes in the anterior proje ction. FINDINGS: Hepatic uptake of radiotracer is prompt and homogeneous. Activity is identified within the gallbladder and common bile duct at 20 minutes. Small bowel activity is noted at 25 minutes. IMPRESSION: No evidence for acute cholecystitis. ACT 112: Negative or not required by law. Electronically signed by: Wayne Donato M.D. 12/16/2020 6:41 PM
[2020-12-16] MEDS ORDERED: FUROSEMIDE 40 MG/4 ML VIAL IV STA (18:57)
[2020-12-16] MEDS ORDERED: DEXTROSE 50% 50 ML SYRINGE IV PRN (18:57)
[2020-12-16] MEDS ORDERED: GLUCAGON FOR INJ 1 MG VIAL SQ PRN (18:57)
[2020-12-16] MEDS ORDERED: GLUCOSE 40% GEL 15 GM TUBE PO PRN (18:57)
[2020-12-16] MEDS ORDERED: CARBOHYDRATES FOR HYPOGLYCEMIA PO PRN (18:57)
[2020-12-16] MEDS ORDERED: GLUCOSE 10 TABS/TUBE PO PRN (18:57)
[2020-12-16] MEDS ORDERED: FUROSEMIDE 20 MG in SYRINGE 0 ML IV STA (19:07)
[2020-12-16] MEDS: ALBUT/IPRATROP 3MG/0.5MG NEB 3 ML VIAL NEB SCH ×2 (19:38→22:05)
[2020-12-16] MEDS: FAMOTIDINE 20 MG in SYRINGE 3 ML IV SCH (20:47)
[2020-12-16] MEDS: PIPERACILLIN/TAZOBACTAM 4.5 GM in DEXTROSE 5% 100 ML IV SCH (20:48)
[2020-12-16] MEDS: ACETAMINOPHEN 500 MG TAB PO SCH (20:55)
[2020-12-16] MEDS: GABAPENTIN 100 MG CAP PO SCH (20:55)
[2020-12-16] MEDS ORDERED: FAMOTIDINE 20MG/5ML IV PUSH IV SCH (21:00)
[2020-12-16] MEDS ORDERED: FLUTICASONE PROPIONATE NA SPR 16 GM BTL SCH (21:00)
[2020-12-16] MEDS: INSULIN ASPART 100 UNITS/ML 3 ML PEN SC SCH ×2 (21:22→21:23)
[2020-12-16 23:00] LABS: Appearance Urine Clear (Clear); Bilirubin Urine Negative (Negative); Blood Urine Negative (Negative); Color Urine Yellow; Glucose Urine UA Negative (Negative); Ketones Urine Negative (Negative); Leukocyte Esterase Urine Negative (Negative); Nitrite Urine Negative (Negative); Protein Urine Negative (Negative); Urobilinogen Urine Negative (Negative)
[2020-12-17] MEDS: ALBUT/IPRATROP 3MG/0.5MG NEB 3 ML VIAL NEB SCH ×2 (03:15→07:25)
[2020-12-17] MEDS: PIPERACILLIN/TAZOBACTAM 4.5 GM in DEXTROSE 5% 100 ML IV SCH ×3 (04:36→20:37)
--- NOTE | 2020-12-17 05:21 | Surgery Progress Note ---
Date of Service December 17, 2020 Assessment & Plan (1) Biliary colic: We are tentatively planning on cholecystectomy later this admission. The exact time and date of her surgery is yet to be determined. Ideally we would like her to be off her Plavix for 2 to 3 days. She is receiving antibiotics perioperatively in the form of Zosyn which should continue. Dr. Sanchez-patient is in her room resting comfortably and is very stable. We do have her on some clear liquids She is not hungry and does not want any other food. Plan would be to proceed with laparoscopic cholecystectomy Tomorrow if possible-depending on OR schedule for emergencies it would otherwise be performed on Saturday. Supportive care for now Admission and Anticipated Discharge Date Admission Date: December 16, 2020 Subjective Patient notes abdominal pain that was noted previously has improved. She currently has no nausea or vomiting. She denies any fever shakes or chills. Physical Exam Constitutional: well developed and well nourished; no acute distress Respiratory: normal respiratory effort; no respiratory distress and no labored breathing Gastrointestinal (Abdomen): Percussion/Palpation: abdomen soft Abdomen is not distended. Patient did have some right upper quadrant tenderness with palpation. No rebound tenderness. Results & Data ([facility]) Vital Signs (Past 12 Hours) Vital Signs Temp Pulse Resp BP Pulse Ox 12/16/20 23:05 36.4 C L 83 18 124/67 96 12/16/20 22:07 84 18 95 12/16/20 19:39 85 22 93 12/16/20 19:17 37.0 C 90 18 160/67 H 91 PG Care Time/CCT Total # of Minutes Spent Total Time Spent with Patient: Total time spent is greater than 50% in coordination of care (as documented) at patient's floor/unit and/or counseling patient: Coding Level of Care Code 15454 Subseq Hosp Care Lvl 1 Diagnoses Biliary colic K80.50
[2020-12-17] MEDS: ACETAMINOPHEN 500 MG TAB PO SCH ×3 (05:30→21:54)
[2020-12-17 06:25] LABS: Estimated Average Glucose 123 mg/dl; Hemoglobin A1C 5.9 % (4.5-5.6)
[2020-12-17 06:28] LABS: INR 1.1 (0.9-1.1); Prothrombin Time 11.9 Seconds (9.0-12.0)
[2020-12-17 06:45] LABS: Hematocrit (blood only) 39.1 % (37-47); Hemoglobin 12.5 g/dL (12.0-16.0); Mean Corpuscular Hemoglobin 30.6 pg (25-34); Mean Corpuscular Volume 95.6 fL (80-100); Mean Platelet Volume 11.4 fL (7.4-10.4); Platelet Count 133 K/uL (130-400); RDW Coefficient of Variation 13.8 % (11.5-14.5); RDW Standard Deviation 48.3 fL (36.4-46.3); Red Blood Count 4.09 M/uL (4.2-5.4)
[2020-12-17 06:46] LABS: Albumin Level 3.2 gm/dl (3.4-5.0); BUN Creatinine Ratio 9.5 (10-20); Calcium 9.2 mg/dl (8.5-10.1); Est GFR (African American) 47.2; Est GFR (Non-African American) 40.7; Magnesium 1.7 mg/dl (1.8-2.4); Potassium 3.7 mmol/L (3.5-5.1)
[2020-12-17 06:50] LABS: Albumin Globulin Ratio 0.9 (0.9-2); Bilirubin Direct 0.2 mg/dl (0-0.2); Bilirubin,Total 0.8 mg/dl (0.2-1); Globulin 3.5 gm/dl (2.5-4.0); Phosphorus 3.5 mg/dl (2.5-4.9); Total Protein 6.7 gm/dl (6.4-8.2)
[2020-12-17] MEDS: KETOROLAC TROMETHAMINE 15 MG/ML VIAL IV PRN ×2 (07:45→18:21)
--- NOTE | 2020-12-17 08:28 | Hospitalist Progress Note ---
Date of Service December 17, 2020 Assessment & Plan (1) Chronic cholecystitis: - Admit to med surg - CT abdomen reviewed from 12/14 - No leukocytosis, afebrile - Pt had recently finished a 10 day course of Augmentin that was prescribed as outpatient for possible diverticulitis, but likely that this was never diverticulitis, and instead was the gallbladder all along- IV zosyn for now - COVID-19 negative - CXR reviewed showing possible pulmonary edema, will hold on fluids and give dose of IV lasix x 1 to see if improves respiratory status. - Continue antiemetics - EKG ordered for preop eval - famotidine 20 mg IV BID Planned surgery, started clear liquids this morning and will hold after midnight unclear of surgical schedule. Continue holding Plavix. (2) HTN (hypertension): - BP elevated on arrival at 160s/70s. likely partially elevated due to amount of pain, attempt to obtain better pain control - Continue lisinopril 5 mg QAM Will continue to monitor stable at this time (3) HLD (hyperlipidemia): - Continue atorvastatin 20 mg daily (4) History of TIA (transient ischemic attack): - HOLD plavix - await decision by general surgery when they plan to take pt to the OR, unlikely that the patient should be held 5 days for plavix to wear off. - Allow baby aspirin (5) Type II diabetes mellitus: - ISS with accuchecks achs and q6h while npo - Check A1C with am labs (6) Asthma: - Hx of such, continue inhalers, duonebs Q4 and Q2h prn for shortness of breath, incentive spirometry/flutter - CXR reviewed as above, ? if she is acutally a bit wet ? 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 - Check CT neck and lumbar spine to r/o any fractures s/p fall with complaints of pain. (10) Morbid obesity: - BMI of 38.7, diet and exercise to be encouraged (11) Depression: - Continue zoloft, cymbalta and wellbutrin - Feels more isolated in her apartment at [place] since covid started and not allowed to have as much social interaction with others. Consider counseling. Encourage phone calls with family. (12) Obstructive sleep apnea: - Hx of such, wears 2 L O2 HS, does not use a cpap. DVT ppx: scds, hold chemical anticoagulation in the setting of possible surgery Code: DNR/DNI Dispo: From [place], likely to remain in the hospital over the weekend. Admission and Anticipated Discharge Date Admission Date: December 16, 2020 Subjective Patient did okay overnight. She continues to have abdominal discomfort but improved since her admission. Tolerated her clear liquids this morning. Reports having a bowel movement. Patient aware of plan surgery in near future No new fevers chills, chest pain dyspnea cough nausea vomiting diarrhea Review of Systems Review of Systems: All systems reviewed & are unremarkable except as noted in Subjective Physical Exam Physical Exam: Constitutional: WD/WN, vitals as above Respiratory: Effort normal, CTA B/L CV: RRR, no murmur, no edema Abdomen: normal bowel sounds, mild discomfort upper right and lower right quadrant Neurologic: Normal gait Results & Data Results & Data ([facility]) Vital Signs (Past 12 Hours) Vital Signs Temp Pulse Resp BP BP Pulse Ox 12/17/20 07:25 83 18 98 12/17/20 07:21 36.7 C 85 18 142/77 H 99 12/16/20 23:05 36.4 C L 83 18 124/67 96 12/16/20 22:07 84 18 95 Laboratory Results Laboratory Results - last 24 hr 12/16/20 12/16/20 12/16/20 15:10 15:10 15:10 WBC 10.07 RBC 4.29 Hgb 13.2 Hct 41.1 MCV 95.8 MCH 30.8 MCHC 32.1 RDW Std Deviation 48.9 H RDW Coeff of Lauren 13.9 Plt Count 132 MPV 11.6 H Immature Gran % (Auto) 0.1 Neut % (Auto) 74.3 Lymph % (Auto) 17.3 [place] % (Auto) 5.9 Eos % (Auto) 2.2 Baso % (Auto) 0.2 Neut # (Auto) 7.49 H Lymph # (Auto) 1.74 [place] # (Auto) 0.59 Eos # (Auto) 0.22 Baso # (Auto) 0.02 Immature Gran # (Auto) 0.01 PT INR Sodium 141 Potassium 3.9 Chloride 107 Carbon Dioxide 32 Anion Gap 2.0 L BUN 12 Creatinine 1.09 Est Cr Clr Drug Dosing 41.5 Est GFR ( Amer) 52.5 Est GFR (Non-Af Amer) 45.3 BUN/Creatinine Ratio 10.6 Glucose 115 H POC Glucose Estimat Average Glucose Hemoglobin A1c Calcium 9.2 Phosphorus Magnesium Total Bilirubin 0.6 Direct Bilirubin AST 9 L ALT 14 Alkaline Phosphatase 68 Troponin I < 0.015 Total Protein 7.3 Albumin 3.6 Globulin 3.7 Albumin/Globulin Ratio 1.0 Triglycerides Cholesterol LDL Cholesterol, Calc VLDL Cholesterol, Calc HDL Cholesterol Cholesterol/HDL Ratio Lipase 86 Urine Color Urine Appearance Urine pH Ur Specific [place] Urine Protein Urine Glucose (UA) Urine Ketones Urine Blood Urine Nitrite Urine Bilirubin Urine Urobilinogen Ur Leukocyte Esterase COVID-19 Eval Order Covid19 IDNow [facility] SARS-CoV-2, RNA, NAAT 12/16/20 12/16/20 12/16/20 15:10 20:28 22:25 WBC RBC Hgb Hct MCV MCH MCHC RDW Std Deviation RDW Coeff of Lauren Plt Count MPV Immature Gran % (Auto) Neut % (Auto) Lymph % (Auto) [place] % (Auto) Eos % (Auto) Baso % (Auto) Neut # (Auto) Lymph # (Auto) [place] # (Auto) Eos # (Auto) Baso # (Auto) Immature Gran # (Auto) PT INR Sodium Potassium Chloride Carbon Dioxide Anion Gap BUN Creatinine Est Cr Clr Drug Dosing Est GFR ( Amer) Est GFR (Non-Af Amer) BUN/Creatinine Ratio Glucose POC Glucose 111 H Estimat Average Glucose Hemoglobin A1c Calcium Phosphorus Magnesium Total Bilirubin Direct Bilirubin AST ALT Alkaline Phosphatase Troponin I Total Protein Albumin Globulin Albumin/Globulin Ratio Triglycerides Cholesterol LDL Cholesterol, Calc VLDL Cholesterol, Calc HDL Cholesterol Cholesterol/HDL Ratio Lipase Urine Color Yellow Urine Appearance Clear Urine pH 5.0 Ur Specific [place] 1.010 Urine Protein Negative Urine Glucose (UA) Negative Urine Ketones Negative Urine Blood Negative Urine Nitrite Negative Urine Bilirubin Negative Urine Urobilinogen Negative Ur Leukocyte Esterase Negative COVID-19 Eval Order SARS-CoV-2, RNA, NAAT NEGATIVE 12/17/20 12/17/20 12/17/20 05:59 05:59 05:59 WBC 6.60 RBC 4.09 L Hgb 12.5 Hct 39.1 MCV 95.6 MCH 30.6 MCHC 32.0 RDW Std Deviation 48.3 H RDW Coeff of Lauren 13.8 Plt Count 133 MPV 11.4 H Immature Gran % (Auto) Neut % (Auto) Lymph % (Auto) [place] % (Auto) Eos % (Auto) Baso % (Auto) Neut # (Auto) Lymph # (Auto) [place] # (Auto) Eos # (Auto) Baso # (Auto) Immature Gran # (Auto) PT 11.9 INR 1.1 Sodium 142 Potassium 3.7 Chloride 107 Carbon Dioxide 32 Anion Gap 4.0 BUN 11 Creatinine 1.19 Est Cr Clr Drug Dosing 37.0 Est GFR ( Amer) 47.2 Est GFR (Non-Af Amer) 40.7 BUN/Creatinine Ratio 9.5 L Glucose 114 H POC Glucose Estimat Average Glucose Hemoglobin A1c Calcium 9.2 Phosphorus 3.5 Magnesium 1.7 L Total Bilirubin 0.8 Direct Bilirubin 0.2 AST 8 L ALT 11 L Alkaline Phosphatase 60 Troponin I Total Protein 6.7 Albumin 3.2 L Globulin 3.5 Albumin/Globulin Ratio 0.9 Triglycerides 133 Cholesterol 130 LDL Cholesterol, Calc 56 VLDL Cholesterol, Calc 27 HDL Cholesterol 47 Cholesterol/HDL Ratio 3 Lipase Urine Color Urine Appearance Urine pH Ur Specific [place] Urine Protein Urine Glucose (UA) Urine Ketones Urine Blood Urine Nitrite Urine Bilirubin Urine Urobilinogen Ur Leukocyte Esterase COVID-19 Eval Order SARS-CoV-2, RNA, NAAT 12/17/20 12/17/20 05:59 06:53 WBC RBC Hgb Hct MCV MCH MCHC RDW Std Deviation RDW Coeff of Lauren Plt Count MPV Immature Gran % (Auto) Neut % (Auto) Lymph % (Auto) [place] % (Auto) Eos % (Auto) Baso % (Auto) Neut # (Auto) Lymph # (Auto) [place] # (Auto) Eos # (Auto) Baso # (Auto) Immature Gran # (Auto) PT INR Sodium Potassium Chloride Carbon Dioxide Anion Gap BUN Creatinine Est Cr Clr Drug Dosing Est GFR ( Amer) Est GFR (Non-Af Amer) BUN/Creatinine Ratio Glucose POC Glucose 108 H Estimat Average Glucose 123 Hemoglobin A1c 5.9 H Calcium Phosphorus Magnesium Total Bilirubin Direct Bilirubin AST ALT Alkaline Phosphatase Troponin I Total Protein Albumin Globulin Albumin/Globulin Ratio Triglycerides Cholesterol LDL Cholesterol, Calc VLDL Cholesterol, Calc HDL Cholesterol Cholesterol/HDL Ratio Lipase Urine Color Urine Appearance Urine pH Ur Specific [place] Urine Protein Urine Glucose (UA) Urine Ketones Urine Blood Urine Nitrite Urine Bilirubin Urine Urobilinogen Ur Leukocyte Esterase COVID-19 Eval Order SARS-CoV-2, RNA, NAAT Medications Administered Current Inpatient Medications Acetaminophen (Acetaminophen 500 Mg Tab) 1,000 mg PO Q8 [facility] Stop: 01/15/21 21:59 Last Admin: 12/17/20 05:30 Dose: Not Given Documented by: Albuterol (Albut/Ipratrop 3mg/0.5mg Neb 3 Ml Vial) 3 ml NEB Q4R [facility] Stop: 01/15/21 18:59 Last Admin: 12/17/20 07:25 Dose: 3 ml Documented by: Aspirin (Aspirin 81 Mg Ectab) 81 mg PO QAM [facility] Stop: 01/16/21 08:59 Atorvastatin Calcium (Atorvastatin 20 Mg Tab) 20 mg PO QAM [facility] Stop: 01/16/21 08:59 Bupropion HCl (Bupropion Sr 100 Mg Tabcr) 100 mg PO DAILY [facility] Stop: 01/16/21 08:59 Clopidogrel Bisulfate (Clopidogrel Bisulfate 75 Mg Tab) 75 mg PO DAILY [facility] Stop: 01/16/21 08:59 Dextrose (Dextrose 50% 50 Ml Syringe) 25 - 50 ml IV UD PRN; Protocol PRN Reason: Hypoglycemia Protocol Stop: 01/15/21 18:56 Fluticasone Propionate (Fluticasone Propionate Na Spr 16 Gm Btl) 2 sprays NA QAM [facility] Stop: 01/16/21 08:59 Gabapentin (Gabapentin 100 Mg Cap) 200 mg PO HS [facility] Stop: 01/15/21 20:59 Last Admin: 12/16/20 20:55 Dose: 200 mg Documented by: Glucagon (Glucagon For Inj 1 Mg Vial) 1 mg SQ UD PRN; Protocol PRN Reason: Hypoglycemia Protocol Stop: 01/15/21 18:56 Glucose (Glucose 10 Tabs/Tube) 4 - 8 tabs PO UD PRN; Protocol PRN Reason: Hypoglycemia Protocol Stop: 01/15/21 18:56 Glucose (Glucose 40% Gel 15 Gm Tube) 15 - 30 gm PO UD PRN; Protocol PRN Reason: Hypoglycemia Protocol Stop: 01/15/21 18:56 Piperacillin Sod/Tazobactam (Sod 4.5 gm/ Dextrose) 120 mls @ 30 mls/hr IV Q8H [facility]; Protocol Stop: 12/26/20 19:59 Last Admin: 12/17/20 04:36 Dose: 30 mls/hr Documented by: Famotidine 20 mg/ Syringe 5 mls @ 2.5 mls/min IV BID [facility] Stop: 01/15/21 20:59 Last Admin: 12/16/20 20:47 Dose: 2.5 mls/min Documented by: Insulin Aspart (Insulin Aspart 100 Units/Ml 3 Ml Pen) 0 units SC ACHS [facility] Stop: 01/15/21 18:56 Last Admin: 12/16/20 21:23 Dose: Not Given Documented by: Ketorolac Tromethamine (Ketorolac Tromethamine 15 Mg/Ml Vial) 15 mg IV Q6H PRN; Protocol PRN Reason: Pain Stop: 12/21/20 16:05 Last Admin: 12/17/20 07:45 Dose: 15 mg Documented by: Lisinopril (Lisinopril 5 Mg Tab) 5 mg PO QAM [facility] Stop: 01/16/21 08:59 Mirabegron (Mirabegron Er 25 Mg Tab) 50 mg PO DAILY [facility] Stop: 01/16/21 08:59 Miscellaneous (Carbohydrates For Hypoglycemia ) 15 - 30 gm PO UD PRN PRN Reason: Hypoglycemia Protocol Stop: 01/15/21 18:56 Miscellaneous Information (Piperacill/Tazobac Consult Active) 1 ea N/A UD PRN PRN Reason: Consult Stop: 01/15/21 16:14 Sertraline HCl (Sertraline Hcl 100 Mg Tablet) 100 mg PO DAILY [facility] Stop: 01/16/21 08:59 PG Care Time/CCT Total # of Minutes Spent Total Time Spent with Patient: Total time spent is greater than 50% in coordination of care (as documented) at patient's floor/unit and/or counseling patient: Coding Level of Care Code 42492 Subseq Hosp Care Lvl 2 Diagnoses Chronic cholecystitis K81.1 HTN (hypertension) I10 HLD (hyperlipidemia) E78.5 History of TIA (transient ischemic attack) Z86.73 Type II diabetes mellitus E11.9 Asthma J45.909 Vitamin D deficiency E55.9 Grady's esophagus K22.70 Diabetic neuropathy E11.40 Morbid obesity E66.01 Depression F32.9 Obstructive sleep apnea G47.33
[2020-12-17] MEDS ORDERED: DULoxetine HCL 20 MG CAP PO SCH (09:00)
[2020-12-17] MEDS ORDERED: ALBUT/IPRATROP 3MG/0.5MG NEB 3 ML VIAL NEB PRN (09:13)
[2020-12-17] MEDS: INSULIN ASPART 100 UNITS/ML 3 ML PEN SC SCH ×4 (09:33→21:00)
[2020-12-17] MEDS: ASPIRIN 81 MG ECTAB PO SCH (09:35)
[2020-12-17] MEDS: FLUTICASONE PROPIONATE NA SPR 16 GM BTL SCH (09:35)
[2020-12-17] MEDS: MIRABEGRON ER 25 MG TAB PO SCH (09:36)
[2020-12-17] MEDS: ATORVASTATIN 20 MG TAB PO SCH (09:36)
[2020-12-17] MEDS: buPROPion SR 100 MG TABCR PO SCH (09:37)
[2020-12-17] MEDS: lisinopril 5 MG TAB PO SCH (09:38)
[2020-12-17] MEDS: SERTRALINE HCL 100 MG TABLET PO SCH (09:38)
[2020-12-17] MEDS: FAMOTIDINE 20 MG in SYRINGE 3 ML IV SCH ×2 (11:41→20:47)
[2020-12-17] MEDS: GABAPENTIN 100 MG CAP PO SCH (20:37)
[2020-12-18] MEDS: PIPERACILLIN/TAZOBACTAM 4.5 GM in DEXTROSE 5% 100 ML IV SCH ×3 (03:51→21:00)
[2020-12-18] MEDS: ACETAMINOPHEN 500 MG TAB PO SCH ×3 (04:37→21:02)
--- NOTE | 2020-12-18 05:48 | Surgery Progress Note ---
Date of Service December 18, 2020 Assessment & Plan (1) Biliary colic: Patient is tentatively scheduled for cholecystectomy today. We will keep her n.p.o. until after surgery We will continue antibiotics as ordered The patient's Plavix was held yesterday. We will resume this postoperatively at the appropriate time Dr. Sanchezpatient with some confusion during the night which is not really unexpected for an 89-year-old female Out of her usual environment. Plan is for possible cholecystectomy later today We will try to call her daughter in [place] again this morning-I left a message on her cell phone yesterday Admission and Anticipated Discharge Date Admission Date: December 16, 2020 Subjective Patient denies shortness of breath. She denies any fevers. She does note continued abdominal pain that appears to be worse on the right side of her abdomen. She does not have any nausea or vomiting. The nursing staff notes the patient does have periods of intermittent confusion. Physical Exam Constitutional: well developed and well nourished; no acute distress Respiratory: normal respiratory effort; no respiratory distress and no labored breathing Gastrointestinal (Abdomen): Percussion/Palpation: abdomen soft Patient does have pain with palpation which is greatest in the right upper quadrant. There is no rebound tenderness or guarding Results & Data ([facility]) Vital Signs (Past 12 Hours) Vital Signs Temp Pulse Resp BP Pulse Ox 12/17/20 22:55 37 C 88 18 134/65 95 PG Care Time/CCT Total # of Minutes Spent Total Time Spent with Patient: Total time spent is greater than 50% in coordination of care (as documented) at patient's floor/unit and/or counseling patient: Coding Level of Care Code None Diagnoses Biliary colic K80.50
[2020-12-18] MEDS ORDERED: Nursing to Pharmacy Communication SCH ×2 (06:15→15:15)
[2020-12-18 06:23] LABS: Hematocrit (blood only) 40.6 % (37-47); Hemoglobin 12.8 g/dL (12.0-16.0); Mean Corpuscular Hemoglobin 30.5 pg (25-34); Mean Corpuscular Hgb Conc 31.5 g/dL (32-36); Mean Corpuscular Volume 96.9 fL (80-100); Mean Platelet Volume 11.5 fL (7.4-10.4); Platelet Count 112 K/uL (130-400); RDW Coefficient of Variation 13.5 % (11.5-14.5); RDW Standard Deviation 48.2 fL (36.4-46.3); Red Blood Count 4.19 M/uL (4.2-5.4); White Blood Count 7.01 K/uL (4.8-10.8)
[2020-12-18] MEDS: INSULIN ASPART 100 UNITS/ML 3 ML PEN SC SCH ×4 (06:33→20:45)
[2020-12-18 06:55] LABS: Albumin Level 3.3 gm/dl (3.4-5.0); Calcium 9.3 mg/dl (8.5-10.1); Creatinine Clr Calc Pharmacy 38.9 ml/min; Est GFR (African American) 50.3; Est GFR (Non-African American) 43.4; Potassium 3.6 mmol/L (3.5-5.1)
[2020-12-18 06:58] LABS: Albumin Globulin Ratio 0.9 (0.9-2); Bilirubin,Total 0.7 mg/dl (0.2-1); Globulin 3.6 gm/dl (2.5-4.0); Total Protein 6.9 gm/dl (6.4-8.2)
[2020-12-18] MEDS: KETOROLAC TROMETHAMINE 15 MG/ML VIAL IV PRN (08:08)
--- NOTE | 2020-12-18 08:20 | Hospitalist Progress Note ---
Date of Service December 18, 2020 Assessment & Plan (1) Chronic cholecystitis: Admited to med surg * CT abdomen reviewed from 12/14 * Previously seen by Dr. Sanchez in the Fall regarding biliary colic but was attempting to manage conservatively and with dietary restrictions * [employer] completed course of 10days Augmentin for possible diverticulitis but likely GB all along * General surgery consulted * POD #0 s/p lap charline with Dr. Sanchez. EBL 20cc. * JIA drain present * Pain management/PT/OT/DVT prophylaxis per general surgery * Continue Zosyn (on day 3 of treatment) * Continue pepcid IV BID * IVF NSS @50cc/hr Plavix to be resumed post-operatively. Continued ASA H/h stable -- monitor in AM Diet ordered -- advance as tolerated (2) HTN (hypertension): * BP elevated on arrival at 160s/70s likely partially elevated due to amount of pain, attempt to obtain better pain control * BP 126/85 post-op * Got dose of lisinopril 5mg daily this morning -- will hold for this evening and can be resumed by morning team if kidney function stable * Continue to monitor (3) HLD (hyperlipidemia): * Continue atorvastatin 20 mg daily (4) History of TIA (transient ischemic attack): * HOLD plavix -- resume post-operatively saul. ASA has been continued * - await decision by general surgery when they plan to take pt to the OR, unlikely that the patient should be held 5 days for plavix to wear off. * CT Head on admission without acute finding (5) Type II diabetes mellitus: * ISS with accuchecks achs and q6h while npo * Change to ACHS * A1c 5.9 and demonstrates good control * BSG acceptable * Continue to monitor (6) Asthma: * Hx of such, continue inhalers, duonebs Q4 and Q2h prn for shortness of breath, incentive spirometry/flutter * 93% on 2L post-operatively although lungs without evidence of volume overload --> wean as anesthesia wears off * No shortness of breath reported * Continue O2 2L HS * CXR reviewed as above, ? if she is acutally a bit wet ? Will trial once dose of lasix 20 mg IV to see if this improves respiratory status with rales, shortness of breath, low O2 sats, now on supplemental O2 where normally only wears 2 L HS (7) Vitamin D deficiency: * Cont supplementation (8) Grady's esophagus: * Hx of such, continue famotidine 20 mg IV BID for now. Can transition to PO in AM once taking more PO (9) Diabetic neuropathy: * Noted, chronic, takes gabapentin for pain, continue * PT/OT consults for the pt as she reports several falls recently, the last was around Thanksgiving, uses a walker or cane at baseline now. * Check CT neck and lumbar spine without acute fracture (10) Morbid obesity: * BMI of 38.7, diet and exercise to be encouraged (11) Depression: * Continue zoloft, cymbalta and wellbutrin * Feels more isolated in her apartment at [place] since covid started and not allowed to have as much social interaction with others. Consider counseling. Encourage phone calls with family. (12) Obstructive sleep apnea: * Hx of such, wears 2 L O2 HS, does not use a cpap. DVT ppx: scds, hold chemical anticoagulation in the setting of surgery -- resume plavix when ok with surgery Code: DNR/DNI Dispo: From [place], likely to remain in the hospital 1-2 days with repeat therapy evals post-operatively Admission and Anticipated Discharge Date Admission Date: December 16, 2020 Subjective Patient evaluated this afternoon following surgery. No flatus or BM just yet. Pain currently controlled with ordered medications. Not nauseated, however does not have much of an appetite. Has not eaten since surgery but is thirsty and drinking water. She states pain is dramatically improved from admission. Since surgery, no fevers, chills, chest pain, shortness of breath reported. Lives at [place] and plans on return at discharge in next several days. Questions/concerns addressed. Review of Systems Review of Systems: All systems reviewed & are unremarkable except as noted in HPI & below Physical Exam Constitutional: well developed, well nourished, cooperative and comfortable; no acute distress Eyes: + anicteric sclerae and PERRL ENMT: Mouth: no dentition abnormality Mallampati Class: III Neck: normal visual inspection Respiratory: normal respiratory effort; no respiratory distress and no labored breathing Auscultation: lungs clear to auscultation bilaterally and + diminished lung sounds 93% on 2L Cardiovascular: Rate/Rhythm: regular rate and regular rhythm Gastrointestinal (Abdomen): Inspection/Auscultation: + hypoactive bowel sounds; abdomen not distended Percussion/Palpation: + abdomen tender (ttp r ight sided abdomen and diffusely) and abdomen soft; no guarding and abdomen not rigid JIA drain with 15cc bloody drainage surgical incisions c/d/i Musculoskeletal: Head/Neck/Chest: normocephalic and head atraumatic Skin: warm, dry Neurologic: PERRL, EOMI, accommodation nl, no face palsy, no dysarthria Psychiatric: Orientation: alert and oriented to person; + not oriented to place and + not oriented to time (intermittent confusion post-operatively) Lymphatic: no cervical or axillary lymphadenopathy Results & Data Results & Data ([facility]) Vital Signs (Past 12 Hours) Vital Signs Temp Pulse Resp BP Pulse Ox 12/18/20 07:32 36.4 C L 93 H 16 147/75 H 95 12/17/20 22:55 37 C 88 18 134/65 95 Laboratory Results 12/18/20 12/18/20 12/18/20 Range/Units 12:15 06:23 05:59 WBC (4.8-10.8) K/uL RBC (4.2-5.4) M/uL Hgb (12.0-16.0) g/dL Hct (37-47) % MCV (80-100) fL MCH (25-34) pg MCHC (32-36) g/dL RDW Std Deviation (36.4-46.3) fL RDW Coeff of Lauren (11.5-14.5) % Plt Count (130-400) K/uL MPV (7.4-10.4) fL Sodium (136-145) mmol/L Potassium (3.5-5.1) mmol/L Chloride (98-107) mmol/L Carbon Dioxide (21-32) mmol/L Anion Gap (3-11) BUN (7-18) mg/dl Creatinine (0.6-1.2) mg/dl Est Cr Clr Drug Dosing ml/min Est GFR ( Amer) Est GFR (Non-Af Amer) BUN/Creatinine Ratio (10-20) Glucose (70-99) mg/dl POC Glucose 158 H 125 H (70-99) mg/dl Calcium (8.5-10.1) mg/dl Magnesium 1.8 (1.8-2.4) mg/dl Total Bilirubin (0.2-1) mg/dl AST (15-37) U/L ALT (12-78) U/L Alkaline Phosphatase (45-117) U/L Total Protein (6.4-8.2) gm/dl Albumin (3.4-5.0) gm/dl Globulin (2.5-4.0) gm/dl Albumin/Globulin Ratio (0.9-2) 12/18/20 12/18/20 12/17/20 Range/Units 05:59 05:59 20:33 WBC 7.01 (4.8-10.8) K/uL RBC 4.19 L (4.2-5.4) M/uL Hgb 12.8 (12.0-16.0) g/dL Hct 40.6 (37-47) % MCV 96.9 (80-100) fL MCH 30.5 (25-34) pg MCHC 31.5 L (32-36) g/dL RDW Std Deviation 48.2 H (36.4-46.3) fL RDW Coeff of Lauren 13.5 (11.5-14.5) % Plt Count 112 L (130-400) K/uL MPV 11.5 H (7.4-10.4) fL Sodium 143 (136-145) mmol/L Potassium 3.6 (3.5-5.1) mmol/L Chloride 106 (98-107) mmol/L Carbon Dioxide 31 (21-32) mmol/L Anion Gap 6.0 (3-11) BUN 10 (7-18) mg/dl Creatinine 1.13 (0.6-1.2) mg/dl Est Cr Clr Drug Dosing 38.9 ml/min Est GFR ( Amer) 50.3 Est GFR (Non-Af Amer) 43.4 BUN/Creatinine Ratio 9.0 L (10-20) Glucose 107 H (70-99) mg/dl POC Glucose 103 H (70-99) mg/dl Calcium 9.3 (8.5-10.1) mg/dl Magnesium (1.8-2.4) mg/dl Total Bilirubin 0.7 (0.2-1) mg/dl AST 12 L (15-37) U/L ALT 13 (12-78) U/L Alkaline Phosphatase 64 (45-117) U/L Total Protein 6.9 (6.4-8.2) gm/dl Albumin 3.3 L (3.4-5.0) gm/dl Globulin 3.6 (2.5-4.0) gm/dl Albumin/Globulin Ratio 0.9 (0.9-2) 12/17/20 Range/Units 17:10 WBC (4.8-10.8) K/uL RBC (4.2-5.4) M/uL Hgb (12.0-16.0) g/dL Hct (37-47) % MCV (80-100) fL MCH (25-34) pg MCHC (32-36) g/dL RDW Std Deviation (36.4-46.3) fL RDW Coeff of Lauren (11.5-14.5) % Plt Count (130-400) K/uL MPV (7.4-10.4) fL Sodium (136-145) mmol/L Potassium (3.5-5.1) mmol/L Chloride (98-107) mmol/L Carbon Dioxide (21-32) mmol/L Anion Gap (3-11) BUN (7-18) mg/dl Creatinine (0.6-1.2) mg/dl Est Cr Clr Drug Dosing ml/min Est GFR ( Amer) Est GFR (Non-Af Amer) BUN/Creatinine Ratio (10-20) Glucose (70-99) mg/dl POC Glucose 99 (70-99) mg/dl Calcium (8.5-10.1) mg/dl Magnesium (1.8-2.4) mg/dl Total Bilirubin (0.2-1) mg/dl AST (15-37) U/L ALT (12-78) U/L Alkaline Phosphatase (45-117) U/L Total Protein (6.4-8.2) gm/dl Albumin (3.4-5.0) gm/dl Globulin (2.5-4.0) gm/dl Albumin/Globulin Ratio (0.9-2) PG Care Time/CCT Total # of Minutes Spent Total Time Spent with Patient: Total time spent is greater than 50% in coordination of care (as documented) at patient's floor/unit and/or counseling patient: Coding Level of Care Code 26351 Subseq Hosp Care Lvl 2 Diagnoses Chronic cholecystitis K81.1 HTN (hypertension) I10 HLD (hyperlipidemia) E78.5 History of TIA (transient ischemic attack) Z86.73 Type II diabetes mellitus E11.9 Asthma J45.909 Vitamin D deficiency E55.9 Grady's esophagus K22.70 Diabetic neuropathy E11.40 Morbid obesity E66.01 Depression F32.9 Obstructive sleep apnea G47.33
[2020-12-18] MEDS ORDERED: MAGNESIUM SULFATE / D5W 1 GM/100 ML BAG IV ONE (08:30)
--- NOTE | 2020-12-18 08:36 | Anesthesiology Consultation ---
Date of Service December 18, 2020 Assessment & Plan (1) Encounter for pre-operative examination: Chart Review Chart Review: entry level drafter initiated History Surgery Operation Date: 12/18/20 08:00 Proposed Procedures p Laparoscopic Cholecystectomy - Joe Sanchez MD, FACS Height/Weight Height: 5 ft 4 in Weight: 97.1 kg Allergies Allergy/AdvReac Type Severity Reaction Status Date / Time Nitrate Analogues Allergy Unknown UNKNOWN Verified 12/16/20 16:06 nitrofurantoin Allergy Unknown UNKNOWN Verified 12/16/20 16:06 rofecoxib [From Vioxx] Allergy Unknown Verified 12/16/20 16:06 Quinolones Allergy Verified 12/16/20 16:06 ciprofloxacin [From Cipro] AdvReac Verified 12/16/20 16:06 metformin AdvReac Diarrhea Verified 12/16/20 16:06 Medications Home Medications Medication Instructions Recorded Confirmed Last Taken acetaminophen 500 mg tablet 1,000 mg PO .COMPLEX #180 tab 11/09/19 12/16/20 Unknown cetirizine 10 mg tablet See Rx Instructions .ROUTE 12/07/19 12/16/20 Unknown .COMPLEX #30 tablet trospium 20 mg tablet See Rx Instructions PO BID #180 tab 09/16/20 12/16/20 Unknown sertraline 100 mg tablet See Rx Instructions .ROUTE 10/07/20 12/16/20 Unknown .COMPLEX #90 tab bupropion HCl 100 mg tablet,12 hr 100 mg PO DAILY #90 ea 10/20/20 12/16/20 Unknown sustained-release Bifidobacterium infantis 4 mg 4 mg PO DAILY #30 cap 12/05/20 12/16/20 Unknown capsule tramadol 50 mg tablet 100 mg PO Q12H PRN #60 tab 12/05/20 12/16/20 Unknown aspirin [Aspir-81] 81 mg PO QAM 12/16/20 12/16/20 Unknown atorvastatin 20 mg PO QAM 12/16/20 12/16/20 Unknown calcium carbonate-vitamin D3 1 tab PO QAM 12/16/20 12/16/20 Unknown [Calcium 600 + D(3)] cholecalciferol (vitamin D3) 2,000 units PO BID 12/16/20 12/16/20 Unknown clopidogrel 75 mg PO QAM 12/16/20 12/16/20 Unknown fluticasone propionate 2 spray INTRANASAL QAM 12/16/20 12/16/20 Unknown folic acid 2 mg PO QAM 12/16/20 12/16/20 Unknown gabapentin 100 mg capsule 200 mg PO HS cap 12/16/20 Unknown lisinopril 5 mg PO QAM 12/16/20 12/16/20 Unknown pantoprazole 20 mg PO QAM 12/16/20 12/16/20 Unknown Active Medications Generic Name Dose Route Start Last Admin Trade Name Freq PRN Reason Stop Dose Admin Acetaminophen 1,000 mg 12/16/20 22:00 12/18/20 04:37 Acetaminophen 500 Mg Tab PO 01/15/21 21:59 Not Given Q8 JEF Aspirin 81 mg 12/17/20 09:00 12/17/20 09:35 Aspirin 81 Mg Ectab PO 01/16/21 08:59 81 mg QAM JEF Administration Atorvastatin Calcium 20 mg 12/17/20 09:00 12/17/20 09:36 Atorvastatin 20 Mg Tab PO 01/16/21 08:59 20 mg QAM JEF Administration Bupropion HCl 100 mg 12/17/20 09:00 12/17/20 09:37 Bupropion Sr 100 Mg Tabcr PO 01/16/21 08:59 100 mg DAILY JEF Administration Fluticasone Propionate 2 sprays 12/17/20 09:00 12/17/20 09:35 Fluticasone Propionate Na Spr 16 Gm Btl NA 01/16/21 08:59 2 sprays QAM JEF Administration Gabapentin 200 mg 12/16/20 21:00 12/17/20 20:37 Gabapentin 100 Mg Cap PO 01/15/21 20:59 200 mg HS JEF Administration Piperacillin Sod/Tazobactam 120 mls @ 30 mls/hr 12/16/20 20:00 12/18/20 08:04 Sod 4.5 gm/ Dextrose IV 12/26/20 19:59 Infused Q8H JEF Infusion Protocol Famotidine 20 mg/ Syringe 5 mls @ 2.5 mls/min 12/16/20 21:00 12/17/20 20:47 IV 01/15/21 20:59 2.5 mls/min BID JEF Administration Insulin Aspart 0 units 12/18/20 06:30 12/18/20 06:33 Insulin Aspart 100 Units/Ml 3 Ml Pen SC 01/17/21 06:29 Not Given Q6 JEF Ketorolac Tromethamine 15 mg 12/16/20 16:06 12/18/20 08:08 Ketorolac Tromethamine 15 Mg/Ml Vial IV 12/21/20 16:05 15 mg Q6H PRN Administration Pain Protocol Lisinopril 5 mg 12/17/20 09:00 12/17/20 09:38 Lisinopril 5 Mg Tab PO 01/16/21 08:59 5 mg QAM JEF Administration Mirabegron 50 mg 12/17/20 09:00 12/17/20 09:36 Mirabegron Er 25 Mg Tab PO 01/16/21 08:59 50 mg DAILY JEF Administration Sertraline HCl 100 mg 12/17/20 09:00 12/17/20 09:38 Sertraline Hcl 100 Mg Tablet PO 01/16/21 08:59 100 mg DAILY JEF Administration NPO Date Last Intake of Fluids: 12/17/20 Time Last Intake of Fluids: 23:59 Date Last Intake of Solids: 12/17/20 Time Last Intake of Solids: 23:59 Past Medical History Medical History Asthma Grady's esophagus Benign essential hypertension Cataract Gait disorder GERD (gastroesophageal reflux disease) History of TIA (transient ischemic attack) HLD (hyperlipidemia) HTN (hypertension) Lichen sclerosus et atrophicus Obstructive sleep apnea Osteopenia Thyroid nodule Type II diabetes mellitus Vitamin D deficiency Past Family History Family History Mother Brain cancer Diabetes Hypertension Father Esophageal cancer Daughter Colorectal cancer Breast cancer Grandmother Heart disease Stroke Other Pure hypercholesterolemia Past Surgical History Surgical History H/O cardiac radiofrequency ablation H/O colonoscopy History of appendectomy History of tonsillectomy and adenoidectomy History of total abdominal hysterectomy Status post abdominal hysterectomy and right salpingo-oophorectomy Social History Smoking Status: Never smoker Hx Alcohol Use: No alcohol intake frequency: holidays/special occasions only Hx Substance Use: No substance use type: does not use Physical Exam Vital Signs Last Vital Signs Temp 97.5 F L 12/18/20 07:32 Pulse 93 H 12/18/20 07:32 Resp 16 12/18/20 07:32 BP 147/75 H 12/18/20 07:32 Pulse Ox 95 12/18/20 07:32 Testing Laboratory Results 12/18/20 05:59 12/18/20 05:59 PT 11.9 Seconds (9.0-12.0) 12/17/20 05:59 INR 1.1 (0.9-1.1) 12/17/20 05:59 Hemoglobin A1c 5.9 % (4.5-5.6) H 12/17/20 05:59 Urine Color Yellow 12/16/20 22:25 Urine Appearance Clear (Clear) 12/16/20 22:25 Urine pH 5.0 (4.5-7.5) 12/16/20 22:25 Ur Specific Hunt 1.010 (1.000-1.030) 12/16/20 22:25 Urine Protein Negative (Negative) 12/16/20 22:25 Urine Glucose (UA) Negative (Negative) 12/16/20 22:25 Urine Ketones Negative (Negative) 12/16/20 22:25 Urine Nitrite Negative (Negative) 12/16/20 22:25 Ur Leukocyte Esterase Negative (Negative) 12/16/20 22:25 12/18/20 06:23 POC Glucose 125 H Electrocardiogram Date: 12/16/20 Sinus rhythm with Premature supraventricular complexes, rate 86 bpm Cannot rule out Inferior infarct , age undetermined Abnormal ECG When compared with ECG of 01-JUL-2019 22:23, No significant change was found Confirmed by Josue Jack ([id number]) on 12/16/2020 3:32:38 PM Chest X-Ray Date: 12/16/20 FINDINGS: Cardiomegaly is unchanged. Interstitial thickening is unchanged. This is likely chronic. There is no evidence for pulmonary edema. There is no pneumothorax or pleural effusion. There is no consolidation to suggest pneumonia. IMPRESSION: No significant change in appearance of the chest. Interstitial thickening which is likely chronic. Mild interstitial pulmonary edema could a ppear similar although is considered less likely. Stress Test Date: 02/05/19 Type: DSE Findings: + WNL and + achieved max HR (105%)
[2020-12-18] MEDS ORDERED: ePHEDrine sulfate 50 MG/ML AMP IV PRN (09:07)
[2020-12-18] MEDS ORDERED: fentaNYL citrate 100 MCG/2 ML VIAL IV PRN (09:07)
[2020-12-18] MEDS ORDERED: ONDANSETRON INJ 2 MG/ML 2 ML VIAL IV PRN ×2 (09:07→13:19)
[2020-12-18] MEDS ORDERED: ATROPINE SULFATE 0.1 MG/ML 10ML SYR IV PRN (09:07)
[2020-12-18] MEDS: ASPIRIN 81 MG ECTAB PO SCH (09:30)
[2020-12-18] MEDS: buPROPion SR 100 MG TABCR PO SCH (09:31)
[2020-12-18] MEDS: lisinopril 5 MG TAB PO SCH (09:31)
[2020-12-18] MEDS: SERTRALINE HCL 100 MG TABLET PO SCH (09:31)
[2020-12-18] MEDS: MIRABEGRON ER 25 MG TAB PO SCH (09:31)
[2020-12-18] MEDS: ATORVASTATIN 20 MG TAB PO SCH (09:31)
[2020-12-18] MEDS ORDERED: LIDOCAINE HCL 2% 2 ML VIAL/AMP(20MG/ML) INFIL ONE (09:38)
[2020-12-18] MEDS: FLUTICASONE PROPIONATE NA SPR 16 GM BTL SCH (09:38)
[2020-12-18] MEDS ORDERED: fentaNYL citrate 100 MCG/2 ML VIAL ONE (09:38)
[2020-12-18] MEDS ORDERED: PROPOFOL IV EMULSION 10 MG/ML 20 ML VIAL IV ONE (09:38)
[2020-12-18] MEDS: FAMOTIDINE 20 MG in SYRINGE 3 ML IV SCH ×2 (09:39→21:01)
[2020-12-18] MEDS ORDERED: BUPIVACAINE 0.5 % 5 MG/1 ML MPF 30ML VIAL ONE (10:21)
[2020-12-18] MEDS ORDERED: GLYCOPYRROLATE 0.2 MG/ML VIAL ONE (11:07)
[2020-12-18] MEDS ORDERED: ONDANSETRON INJ 2 MG/ML 2 ML VIAL ONE (11:07)
[2020-12-18] MEDS ORDERED: ROCURONIUM BROMIDE 10 MG/ML 5 ML VIAL IV ONE (11:07)
[2020-12-18] MEDS ORDERED: NEOSTIGMINE METHYLSULFATE 5 MG/5 ML SYR ONE (11:07)
[2020-12-18] MEDS ORDERED: FLOSEAL HEMOSTATIC MATRIX 10ML TOP ONE (11:11)
[2020-12-18] MEDS ORDERED: LABETALOL HCL IV 5 MG/ML 20ML IV ONE (11:36)
--- NOTE | 2020-12-18 11:45 | Post Operative Brief Note ---
PG Immediate Post Op with CF Date of Surgery December 18, 2020 Pre & Post Diagnosis Operation Date: 12/18/20 08:00 Pre-Op Diagnosis: CHOLILITHIASIS Post-Op Diagnosis: CHOLILITHIASIS I identified the patient and participated in the time-out.: Yes Procedure Operation Date: 12/18/20 08:00 Actual Procedures p Laparoscopic Cholecystectomy(Not Applicable) - Joe Sanchez MD, FACS Surgeon Joe Sanchez MD, FACS Pediatric Psychiatrist nurses Estimated Blood Loss 20 Findings Consistent with Post-Op Diagnosis Specimens Specimen Description: Permanent Specimen: A) Gallbladder and Contents Drains Erasmo-Weston Drain (15fr round)
[2020-12-18] MEDS ORDERED: ACETAMINOPHEN 1,000 MG/100 ML VIAL IV ONE (11:52)
[2020-12-18] MEDS ORDERED: ACETAMINOPHEN 1000 MG/100 ML IV IV ONE (12:19)
--- NOTE | 2020-12-18 12:34 | Anesthesiology Progress Note ---
Date of Service December 18, 2020 Anesthesia Post Procedure Vital Signs Vital Signs: Temp Pulse Pulse Resp BP Pulse Ox 12/18/20 12:25 77 25 H 145/63 H 97 12/18/20 12:15 79 24 172/75 H 100 12/18/20 12:07 97.5 F L 77 22 180/85 H 100 12/18/20 07:32 97.5 F L 93 H 16 147/75 H 95 12/17/20 22:55 98.6 F 88 18 134/65 95 12/17/20 15:10 97.9 F 81 18 148/79 H 96 Pain Intensity Right Flank: Pain Intensity: 3 Right Hip: Pain Intensity: 4 Transfer of Care Handoff Completed per policy Notes Mental Status: alert / awake / arousable and participated in evaluation Patient Amnestic to Procedure: Yes Nausea / Vomiting: adequately controlled Pain: adequately controlled Airway Patency, RR, SpO2: stable & adequate BP & HR: stable & adequate Hydration State: stable & adequate Anesthetic Complications: no major complications apparent and Pt Satisfied with anesthetic care
[2020-12-18] MEDS ORDERED: MoRPHine SULFATE 2 MG/ML CARP IV PRN (13:19)
[2020-12-18] MEDS ORDERED: HYDROCODONE/ACETAMOPHEN 5/325MG TAB PO PRN (13:19)
[2020-12-18] MEDS: SODIUM CHLORIDE 0.9% 1000ML 1,000 ML IV SCH (13:29)
[2020-12-18] MEDS: MoRPHine SULFATE 2 MG/ML CARP IV PRN ×2 (13:31→17:38)
--- NOTE | 2020-12-18 15:38 | Operative Report (OR) ---
DATE OF OPERATION: 12/18/2020 NAME OF OPERATION: Laparoscopic cholecystectomy. PREOPERATIVE DIAGNOSES: Biliary colic and chronic cholecystitis. POSTOPERATIVE DIAGNOSES: Biliary colic and chronic cholecystitis. STAFF SURGEON: Joe Sanchez MD. AIRCRAFT SKIN BURNISHER: Nurses. ANESTHESIA: General. DESCRIPTION OF PROCEDURE: The patient was brought in the operating room and placed on the operating table in supine position. Her abdomen was prepped and draped in usual fashion. Pneumatic stockings, orogastric tube were placed. 0.5% plain Marcaine was used to anesthetize all incisions. Incision was made above the umbilicus, carrying dissection down into the abdomen, placing a Veress needle producing pneumoperitoneum. The patient was on Plavix preoperatively and we were very careful, 3 additional ports were placed, 5 mm, 1 cephalad and 2 laterally. Gallbladder was grasped and retracted. It was very, very large. I did aspirate at least 40 mL of bile and there was an additional 40-60 mL within the gallbladder, very distended. Dissection was carried out the boni hepatis, identifying the cystic duct and cystic artery. These were clipped and transected. Then the gallbladder dissected away from the liver bed. There was mild oozing, but not significant. I did place some FloSeal into the subhepatic space. I placed a 15 round Erasmo-Weston drain through the lateral 5 mm port site into the subhepatic space, secured using 3-0 nylon suture. The gallbladder was placed in an Endobag and removed through the umbilical site. I placed the camera back in and checked the port sites. They were all dry. The umbilical fascia closed using interrupted 0 Vicryl suture. Subcutaneous tissue reapproximated using 2-0 plain suture and then the skin reapproximated using 4-0 nylon suture. The patient was transferred to recovery room in stable condition. I attest to the content of the Intraoperative Record and any orders documented therein. Any exception s are noted below.
[2020-12-18] MEDS: GABAPENTIN 100 MG CAP PO SCH (21:00)
[2020-12-19] MEDS: PIPERACILLIN/TAZOBACTAM 4.5 GM in DEXTROSE 5% 100 ML IV SCH ×3 (05:14→20:47)
[2020-12-19] MEDS: ACETAMINOPHEN 500 MG TAB PO SCH ×3 (06:13→21:20)
--- NOTE | 2020-12-19 06:27 | Surgery Progress Note ---
Date of Service December 19, 2020 Assessment & Plan (1) Status post laparoscopic cholecystectomy: Patient has rested comfortably overnight Receiving minimal pain medication Drain in place draining serosanguineous fluid minimal We will check her a.m. laboratories, assess her mobility Would hold on Plavix today and begin tomorrow Possible discharge tomorrow back to [place] but she will need help We will likely remove the drain prior to discharge Admission and Anticipated Discharge Date Admission Date: December 16, 2020 Results & Data ([facility]) Vital Signs (Past 12 Hours) Vital Signs Temp Pulse Resp BP Pulse Ox 12/19/20 04:00 36.7 C 98 H 18 158/83 H 94 12/18/20 23:27 36.8 C 89 16 122/69 92 12/18/20 19:52 36.8 C 69 16 133/80 92 PG Care Time/CCT Total # of Minutes Spent Total Time Spent with Patient: Total time spent is greater than 50% in coordination of care (as documented) at patient's floor/unit and/or counseling patient: Coding Level of Care Code None Diagnoses Status post laparoscopic cholecystectomy Z90.49
[2020-12-19 06:36] LABS: Basophils # (auto) 0.02 K/uL (0-0.2); Basophils % (auto) 0.2 %; Eosinophils # (auto) 0.29 K/uL (0-0.5); Eosinophils % (auto) 3.3 %; Hematocrit (blood only) 38.9 % (37-47); Hemoglobin 12.3 g/dL (12.0-16.0); Immature Granulocytes # (auto) 0.01 K/uL (0.00-0.02); Immature Granulocytes % (auto) 0.1 %; Lymphocytes # (auto) 1.44 K/uL (1.2-3.4); Lymphocytes % (auto) 16.6 %; Mean Corpuscular Hemoglobin 30.4 pg (25-34); Mean Corpuscular Hgb Conc 31.6 g/dL (32-36); Mean Platelet Volume 11.7 fL (7.4-10.4); Monocytes # (auto) 0.64 K/uL (0.11-0.59); Monocytes % (auto) 7.4 %; Neutrophils # (auto) 6.28 K/uL (1.4-6.5); Neutrophils % (auto) 72.4 %; Platelet Count 114 K/uL (130-400); RDW Coefficient of Variation 13.5 % (11.5-14.5); RDW Standard Deviation 47.7 fL (36.4-46.3); Red Blood Count 4.05 M/uL (4.2-5.4); White Blood Count 8.68 K/uL (4.8-10.8)
[2020-12-19 07:17] LABS: Albumin Level 3.1 gm/dl (3.4-5.0); BUN Creatinine Ratio 9.7 (10-20); Bilirubin Direct 0.2 mg/dl (0-0.2); Calcium 8.5 mg/dl (8.5-10.1); Creatinine Clr Calc Pharmacy 43.1 ml/min; Est GFR (African American) 56.9; Est GFR (Non-African American) 49.1; Potassium 3.6 mmol/L (3.5-5.1)
[2020-12-19 07:18] LABS: Albumin Level 3.2 gm/dl (3.4-5.0); Calcium 8.5 mg/dl (8.5-10.1); Creatinine Clr Calc Pharmacy 43.1 ml/min; Est GFR (African American) 56.9; Est GFR (Non-African American) 49.1; Potassium 3.8 mmol/L (3.5-5.1)
[2020-12-19 07:20] LABS: Albumin Globulin Ratio 0.9 (0.9-2); Bilirubin,Total 0.6 mg/dl (0.2-1); Globulin 3.4 gm/dl (2.5-4.0); Phosphorus 2.2 mg/dl (2.5-4.9); Total Protein 6.5 gm/dl (6.4-8.2)
[2020-12-19 07:21] LABS: Albumin Globulin Ratio 0.9 (0.9-2); Bilirubin,Total 0.7 mg/dl (0.2-1); Globulin 3.4 gm/dl (2.5-4.0); Total Protein 6.6 gm/dl (6.4-8.2)
[2020-12-19] MEDS: FLUTICASONE PROPIONATE NA SPR 16 GM BTL SCH (08:25)
[2020-12-19] MEDS: ASPIRIN 81 MG ECTAB PO SCH (08:25)
[2020-12-19] MEDS: ATORVASTATIN 20 MG TAB PO SCH (08:25)
[2020-12-19] MEDS: SERTRALINE HCL 100 MG TABLET PO SCH (08:25)
[2020-12-19] MEDS: MIRABEGRON ER 25 MG TAB PO SCH (08:25)
[2020-12-19] MEDS: CLOPIDOGREL BISULFATE 75 MG TAB PO SCH (08:26)
[2020-12-19] MEDS: buPROPion SR 100 MG TABCR PO SCH (08:26)
[2020-12-19] MEDS: SODIUM CHLORIDE 0.9% 1000ML 1,000 ML IV SCH (08:30)
[2020-12-19] MEDS: FAMOTIDINE 20 MG in SYRINGE 3 ML IV SCH (08:30)
[2020-12-19] MEDS: INSULIN ASPART 100 UNITS/ML 3 ML PEN SC SCH ×4 (08:58→20:47)
--- NOTE | 2020-12-19 16:29 | Hospitalist Progress Note ---
Date of Service December 19, 2020 Assessment & Plan (1) Chronic cholecystitis: S/p lap charline with Dr. Sanchez on 12/18. EBL 20cc. * JIA drain present * Pain management/PT/OT/DVT prophylaxis per general surgery * Continue Zosyn (End date: 12/22/2020 for a 7-day course) - Plavix to be resumed tomorrow. Continued ASA. - H/h stable -- monitor in AM - Diet ordered -- advance as tolerated (2) HTN (hypertension): BP elevated on arrival at 160s/70s likely partially elevated due to amount of pain. - BP today was 125/55. - Continue lisinopril as needed (presently on hold) (3) HLD (hyperlipidemia): * Continue atorvastatin 20 mg daily (4) History of TIA (transient ischemic attack): CT head on admission without acute finding. No indication of present CVA. - Continue ASA/Plavix (5) Type II diabetes mellitus: A1c was 5.9% this admission. - Sliding scale insulin - Blood sugars under good control in the last 24 hours. (6) Asthma: No present shortness of breath or wheezing. - DuoNebs PRN (7) Grady's esophagus: - Continue famotidine 20 mg PO daily (8) Diabetic neuropathy: Noted, chronic. - Continue gabapentin (9) Morbid obesity: BMI of 38.7. - Diet and exercise to be encouraged (10) Depression: Feels more isolated in her apartment at [place] since Covid started and not allowed to have as much social interaction with others. - Consider counseling. - Encouraged phone calls with family. - Continue Zoloft, Cymbalta and Wellbutrin (11) Obstructive sleep apnea: Hx of such, wears 2 L O2 HS, does not use a cpap. - Continue (12) DVT prophylaxis: SCDs - Low DVT risk per admission calculator & also on ASA/Plavix Admission and Anticipated Discharge Date Admission Date: December 16, 2020 Subjective Feeling much better today. Minimal pain. Reports no fevers/chills, chest pain, shortness of breath, abdominal pain, nausea, or vomiting. Review of Systems Respiratory: no dyspnea Cardiovascular: no chest pain Physical Exam Constitutional: WD/WN, vitals as above Eyes: EOM intact bilaterally; no conjunctival abnormality ENMT: external ear and nose normal, oropharynx normal Neck: trachea midline, no thyromegaly normal visual inspection Respiratory: normal respiratory effort, lungs clear to auscultation no respiratory distress Cardiovascular: RRR, no murmur, no edema Gastrointestinal (Abdomen): Inspection/Auscultation: abdomen normal to inspection, + abdominal surgical incision (Bandaged) and + abdominal surgical drain present; abdomen not distended Musculoskeletal: no cyanosis or clubbing, extremities motor strength 5/5 Skin: no rashes, warm and dry Neurologic: moves all extremities and awake Psychiatric: Orientation: alert, oriented to person and cooperative Results & Data Results & Data ([facility]) Vital Signs (Past 12 Hours) Vital Signs Temp Pulse Resp BP BP Pulse Ox 12/19/20 15:11 36.9 C 91 H 18 126/55 L 90 12/19/20 07:05 36.8 C 92 H 20 140/79 95 PG Care Time/CCT Total # of Minutes Spent Total Time Spent with Patient: Total time spent is greater than 50% in coordination of care (as documented) at patient's floor/unit and/or counseling patient: Coding Level of Care Code 94477 Subseq Hosp Care Lvl 3 Diagnoses Chronic cholecystitis K81.1 HTN (hypertension) I10 HLD (hyperlipidemia) E78.5 History of TIA (transient ischemic attack) Z86.73 Type II diabetes mellitus E11.9 Asthma J45.909 Grady's esophagus K22.70 Diabetic neuropathy E11.40 Morbid obesity E66.01 Depression F32.9 Obstructive sleep apnea G47.33 DVT prophylaxis Z29.9
[2020-12-19] MEDS: KETOROLAC TROMETHAMINE 15 MG/ML VIAL IV PRN (20:45)
[2020-12-19] MEDS: GABAPENTIN 100 MG CAP PO SCH (20:47)
[2020-12-20] MEDS: hydrALAZINE HCL 20 MG/ML VIAL IV PRN ×2 (01:48→07:55)
[2020-12-20] MEDS: PIPERACILLIN/TAZOBACTAM 4.5 GM in DEXTROSE 5% 100 ML IV SCH (03:47)
[2020-12-20] MEDS: ACETAMINOPHEN 500 MG TAB PO SCH ×2 (05:26→13:01)
--- NOTE | 2020-12-20 07:24 | Surgery Progress Note ---
Date of Service December 20, 2020 Assessment & Plan (1) Status post laparoscopic cholecystectomy: Patient status post laparoscopic cholecystectomy She has a drain in place draining serous fluid we will discontinue the drain We can stop her antibiotics from a surgical standpoint I think if there is a bed available she can be transferred back to [facility] We will follow her in the surgical clinic within 1 to 2 weeks Usually I continue the patient on [place] and I will leave this to the medical team as I am having trouble writing a prescription in the discharge orders Admission and Anticipated Discharge Date Admission Date: December 16, 2020 Results & Data ([facility]) Vital Signs (Past 12 Hours) Vital Signs Temp Pulse Resp BP BP Pulse Ox 12/20/20 07:16 36.4 C L 97 H 20 187/83 H 98 12/20/20 03:01 143/79 H 12/20/20 01:43 196/91 H 12/19/20 23:27 37.1 C 91 H 18 174/92 H 196/85 H 92 PG Care Time/CCT Total # of Minutes Spent Total Time Spent with Patient: Total time spent is greater than 50% in coordination of care (as documented) at patient's floor/unit and/or counseling patient: Coding Level of Care Code None Diagnoses Status post laparoscopic cholecystectomy Z90.49
[2020-12-20 07:36] LABS: Hematocrit (blood only) 38.7 % (37-47); Hemoglobin 12.5 g/dL (12.0-16.0); Mean Corpuscular Hemoglobin 30.8 pg (25-34); Mean Corpuscular Hgb Conc 32.3 g/dL (32-36); Mean Corpuscular Volume 95.3 fL (80-100); Mean Platelet Volume 10.7 fL (7.4-10.4); Platelet Count 150 K/uL (130-400); RDW Coefficient of Variation 13.6 % (11.5-14.5); RDW Standard Deviation 47.2 fL (36.4-46.3); Red Blood Count 4.06 M/uL (4.2-5.4); White Blood Count 6.76 K/uL (4.8-10.8)
[2020-12-20 08:04] LABS: Albumin Level 2.9 gm/dl (3.4-5.0); BUN Creatinine Ratio 8.3 (10-20); Calcium 9.1 mg/dl (8.5-10.1); Creatinine Clr Calc Pharmacy 43.6 ml/min; Est GFR (African American) 57.6; Est GFR (Non-African American) 49.7; Magnesium 1.9 mg/dl (1.8-2.4); Potassium 3.5 mmol/L (3.5-5.1)
[2020-12-20 08:06] LABS: Albumin Globulin Ratio 0.8 (0.9-2); Bilirubin,Total 0.5 mg/dl (0.2-1); Globulin 3.5 gm/dl (2.5-4.0); Total Protein 6.4 gm/dl (6.4-8.2)
[2020-12-20] MEDS: buPROPion SR 100 MG TABCR PO SCH (08:43)
[2020-12-20] MEDS: ASPIRIN 81 MG ECTAB PO SCH (08:43)
[2020-12-20] MEDS: CLOPIDOGREL BISULFATE 75 MG TAB PO SCH (08:43)
[2020-12-20] MEDS: MIRABEGRON ER 25 MG TAB PO SCH (08:43)
[2020-12-20] MEDS: SERTRALINE HCL 100 MG TABLET PO SCH (08:43)
[2020-12-20] MEDS: ATORVASTATIN 20 MG TAB PO SCH (08:43)
[2020-12-20] MEDS: lisinopril 5 MG TAB PO SCH (08:44)
[2020-12-20] MEDS: FLUTICASONE PROPIONATE NA SPR 16 GM BTL SCH (08:44)
[2020-12-20] MEDS: INSULIN ASPART 100 UNITS/ML 3 ML PEN SC SCH ×2 (08:47→12:49)
[2020-12-20] MEDS ORDERED: FAMOTIDINE 20 MG TAB PO SCH (09:00)
[2020-12-20] MEDS: HYDROCODONE/ACETAMOPHEN 5/325MG TAB PO PRN ×3 (09:24→15:30)
--- NOTE | 2020-12-20 17:04 | Discharge Summary ---
Date of Service December 20, 2020 Admission HPI Per Admitting Provider This is an 89 yo F with PMHx of chronic cholecystitis, HTN, HLD, history of TIA, DM II, vitamin D deficiency, thyroid nodule, RACHEL, neuropathy, Grady's esophagus, GERD who presents to the ER after communication with her PCP in regards to worsening abdominal complaints after CT on 12/14/19 which revealed cholelithiasis, including nausea, vomiting, worse with consumption of fatty foods so she had been avoiding these types of foods for months now. Her symptoms have worsened within the last 3 days. Pain is located in the RUQ, rated 8/10, worse with sitting up, alleviated with laying flat. She has been nauseous and vomited once this morning, but she cannot recall if she had eaten breakfast or had taken her morning medications before or after vomiting. She denies any fevers, admits to having intermittent chills. Pt recently completed a 10 day course of Augmentin that was given to her by PCP for possible diverticulitis, because of the abdominal symptoms, but now it appears that this may not have been from diverticulitis at all, instead was from the gallbladder. Pt wears 2L O2 HS typically, but none during the day. Denies any recent sick contacts or known COVID-19 positive contacts. She lives at [place] in her own apartment. Her family knows about her being in the hospital as she tells me she has talked to them today. Pt had a CT of the abdomen on 12/14/2020 which showed chronic cholelithiasis, no cholecystitis, and has been followed by her PCP, Dr. Reinoso, who discussed with general surgery, Dr. Sanchez about taking the gallbladder out. Patient was hesitant to even come to the hospital before knowing that she would be able to have this done due to her concern regarding anesthesia, as well as her age and other comorbidities. She reports that she cannot handle the discomfort in her abdomen and go on like this much longer, so is agreeable to having surgery to improve the quality of her life. Principal Diagnosis Chronic cholecystitis Discharge Exam Constitutional WD/WN, vitals as above Eyes EOM intact bilaterally; no conjunctival abnormality ENMT external ear and nose normal, oropharynx normal Neck trachea midline, no thyromegaly normal visual inspection Respiratory normal respiratory effort, lungs clear to auscultation no respiratory distress Cardiovascular RRR, no murmur, no edema Gastrointestinal (Abdomen) Inspection/Auscultation: abdomen normal to inspection, + abdominal surgical incision (Bandaged) and + abdominal surgical drain present; abdomen not distended Musculoskeletal no cyanosis or clubbing, extremities motor strength 5/5 Skin no rashes, warm and dry Neurologic moves all extremities and awake Psychiatric Orientation: alert, oriented to person and cooperative Discharge Data Allergies Allergy/AdvReac Type Severity Reaction Status Date / Time Nitrate Analogues Allergy Unknown UNKNOWN Verified 12/16/20 16:06 nitrofurantoin Allergy Unknown UNKNOWN Verified 12/16/20 16:06 rofecoxib [From Vioxx] Allergy Unknown Verified 12/16/20 16:06 Quinolones Allergy Verified 12/16/20 16:06 ciprofloxacin [From Cipro] AdvReac Verified 12/16/20 16:06 metformin AdvReac Diarrhea Verified 12/16/20 16:06 Consultations 12/16/20 14:50 ED Decision to Admit Stat 12/16/20 18:57 Consult Case Management - Discharge Planning Routine Consult General Surgery Routine Procedures Performed Operation Date: 12/18/20 08:00 Actual Procedures p Laparoscopic Cholecystectomy(Not Applicable) - Joe Sanchez MD, FACS Ordered Studies 12/16/20 16:50 CT cervical spine wo con Stat CT lumbar spine wo con Stat Hospital Course (1) Chronic cholecystitis: S/p lap charline with Dr. Sanchez on 12/18. EBL 20cc. * JIA drain removed on 12/20 * Continued Zosyn while inpatient. Per surgery, cleared to stop abx on discharge. - Plavix to be resumed tomorrow. Continued ASA. - H/h stable -- monitor in AM - Diet ordered -- advance as tolerated (2) HTN (hypertension): BP elevated on arrival at 160s/70s likely partially elevated due to amount of pain. - BP today was 125/55. - Continue lisinopril on discharge. (3) HLD (hyperlipidemia): * Continue atorvastatin 20 mg daily (4) History of TIA (transient ischemic attack): CT head on admission without acute finding. No indication of present CVA. - Continue ASA/Plavix (5) Type II diabetes mellitus: A1c was 5.9% this admission. - Sliding scale insulin - Blood sugars under good control in the last 24 hours. (6) Asthma: No present shortness of breath or wheezing. - DuoNebs PRN (7) Grady's esophagus: - Continue famotidine 20 mg PO daily (8) Diabetic neuropathy: Noted, chronic. - Continue gabapentin (9) Morbid obesity: BMI of 38.7. - Diet and exercise to be encouraged (10) Depression: Feels more isolated in her apartment at [place] since Covid started and not allowed to have as much social interaction with others. - Consider counseling. - Encouraged phone calls with family. - Continue Zoloft, Cymbalta and Wellbutrin (11) Obstructive sleep apnea: Hx of such, wears 2 L O2 HS, does not use a cpap. - Continue (12) DVT prophylaxis: SCDs - Low DVT risk per admission calculator & also on ASA/Plavix Total Time Total Time Spent Total Time Spent (In Minutes): 35 Discharge Plan Discharge Items Patient Disposition: Personal Long-Term Reason For Visit: CHOLILITHIASIS Discharge Diagnosis: Chronic cholecystitis, biliary colic, cholelithiasis Condition on Discharge: Fair Activity: Resume your previous activity Lifting: No more than 10 pounds Bathing: No limitations Exercise/Sports: As tolerated Driving/Machine Use: 1 week Non-emergency contact: Primary Care Provider Call non-emergency contact if: your pain is not controlled, your temperature is above 101 and your wound has increased drainage Follow-up/Referrals: Slick Reinoso MD [Primary Care Provider] - Diet: Regular Addtl Attending Provider Instructions: SPECIAL CARE INSTRUCTIONS: * Cover incisions and change daily for comfort/drainage * Expect some swelling and bruising. Call your doctor if: * Temperature above 101 degrees * Pain not relieved by pain medicine ordered * There is increased drainage or redness from any incision * You have any unanswered questions or concerns [phone]. FOLLOW UP VISIT: If not already scheduled, please call the office for a follow-up visit. For next week some suture removal-this could also be performed at [place] Please call my office for instructions OFFICE PHONE NUMBER: Dr. Sanchez Office Pending Studies at Discharge: No Stand-Alone Forms: My [facility] [employer], Opioid Pain Management, Smoking Cessation Skilled Items Patient informed of condition?: Yes DNR: Yes Discharge Level of Care: Acute rehab Communicable Disease: No Discharge Prognosis: Improving Lines: None Urinary Catheter: No Medications and DC Order Prescriptions: New hydrocodone-acetaminophen 5-325 mg tablet 1 tab PO Q6H PRN (Reason: pain) Qty: 3 RF: 0 Continued acetaminophen [Acetaminophen Pain Relief] 500 mg tablet 1,000 mg PO .COMPLEX Qty: 180 RF: 4 cetirizine 10 mg tablet See Rx Instructions .ROUTE .COMPLEX Qty: 30 RF: 0 trospium 20 mg tablet See Rx Instructions PO BID Qty: 180 RF: 2 sertraline 100 mg tablet See Rx Instructions .ROUTE .COMPLEX Qty: 90 RF: 1 bupropion HCl 100 mg tablet sustained-release 12 hr 100 mg PO DAILY Qty: 90 RF: 1 Align 4 mg capsule 4 mg PO DAILY Qty: 30 RF: 0 tramadol 50 mg tablet 100 mg PO Q12H PRN (Reason: pain) Qty: 60 RF: 0 gabapentin 100 mg capsule 200 mg PO HS RF: 0 atorvastatin 20 mg tablet 20 mg PO QAM RF: 0 aspirin 81 mg Tablet,Delayed Release (Dr/Ec) 81 mg PO QAM RF: 0 lisinopril 5 mg tablet 5 mg PO QAM RF: 0 clopidogrel 75 mg tablet 75 mg PO QAM RF: 0 pantoprazole 20 mg tablet,delayed release (DR/EC) 20 mg PO QAM RF: 0 folic acid 1 mg tablet 2 mg PO QAM RF: 0 fluticasone propionate 50 mcg/actuation spray,suspension 2 spray intranasal QAM RF: 0 calcium carbonate-vitamin D3 [Calcium 600 + D(3)] 600 mg(1,500mg) -400 unit tablet 1 tab PO QAM RF: 0 cholecalciferol (vitamin D3) 50 mcg (2,000 unit) capsule 2,000 units PO BID RF: 0 Discharge Orders: Discharge Order (Routine); Ordered 12/20/20 Ordered By: Armaan Stevenson Admission Data Admit Date/Time: 12/16/20 15:52 Attending Provider: Armaan Stevenson Admit Provider: Santos Porras Primary Care Provider: Slick Reinoso Other Providers: Joe Sanchez ; Armaan Stevenson ; Elise Hale Other Interventions: Discharge Summary Assessment (RN) Last Done: 12/20/20 13:30 Coding Level of Care Code D/C Day Management >30 mins Diagnoses Chronic cholecystitis K81.1 HTN (hypertension) I10 HLD (hyperlipidemia) E78.5 History of TIA (transient ischemic attack) Z86.73 Type II diabetes mellitus E11.9 Asthma J45.909 Grady's esophagus K22.70 Diabetic neuropathy E11.40 Morbid obesity E66.01 Depression F32.9 Obstructive sleep apnea G47.33 DVT prophylaxis Z29.9
== END 2020-12-20 15:32 | DRG 418 ==
LOC: ED 14:16 → 3N 15:52 → SUATTDRO 15:52 → 3N 17:09